=== PATIENT | male | born 1970 | race Caucasian/White ===

== ENCOUNTER 2018-09-05 19:04 | Emergency (ER) | payer SELFPAY ==
--- NOTE | 2018-09-05 21:52 | EDPHYS ---
Physician Documentation [facility] Name: Tomás Sotmoayor Age: 48 yrs Sex: Male : 1970 Arrival Date: 09/05/2018 Time: 19:09 Bed 9 Private MD: None, None ED Physician Celestine Lambert HPI: 09/05 21:45 This 48 yrs old Male presents to ER via Ambulatory with complaints of Low gs Back Pain. 21:45 The patient presents with pain that is chronic. The symptoms are located in the low gs back. The pain does not radiate. Onset: The symptoms/episode began/occurred 1 month(s) ago, and became worse and became persistent. Modifying factors: the patient symptoms are aggravated by any movement. Associated signs and symptoms: Pertinent positives: constipation, Pertinent negatives: incontinence, numbness, tingling, urinary retention. Severity of symptoms: At their worst the symptoms were moderate, in the emergency department the symptoms are unchanged. The patient has experienced similar episodes in the past, several times, chronically. 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 Historical: - Allergies: 19:24 No Known Allergies; ak1 - Home Meds: 19:24 None [Active]; ak1 - PMHx: 19:24 chroic back pain; Hypertension; ak1 - PSHx: 19:24 None; ak1 - Immunization history:: Adult Immunizations unknown. - Social history:: Smoking status: Patient/guardian denies using tobacco. - Ebola Screening: : No symptoms or risks identified at this time. ROS: 21:45 All other systems are negative. gs Exam: 21:45 Cardiovascular: Regular rate and rhythm with a normal S1 and S2. No gallops, murmurs, gs or rubs. Normal PMI, no JVD. No pulse deficits. Respiratory: Lungs have equal breath sounds bilaterally, clear to auscultation and percussion. No rales, rhonchi or wheezes noted. No increased work of breathing, no retractions or nasal flaring. Abdomen/GI: Soft, non-tender, with normal bowel sounds. No distension or tympany. No guarding or rebound. No evidence of tenderness throughout. 21:45 Constitutional: The patient appears alert, awake. 21:45 Back: pain, that is moderate, of the lumbar area. 21:45 Musculoskeletal/extremity: Circulation is intact in all extremities. 21:45 Skin: Exam negative for 21:45 Neuro: Exam negative for acute changes. Vital Signs: 19:24 BP 140 / 100; Pulse 108; Resp 16; Temp 98.3(O); Pulse Ox 98% on R/A; Weight 95.25 kg ak1 (R); Height 6 ft. 2 in. (187.96 cm) (R); Pain 8/10; 19:24 Body Mass Index 26.96 (95.25 kg, 187.96 cm) ak1 19:24 pt shoulde be on taking BP meds, no inusrance for 6 months and has not been taking ak1 medications. MDM: 21:25 Patient medically screened. 21:45 Differential diagnosis: arthritis, strain, Herniated disc. Differential diagnosis: gs chronic back pain. Data reviewed: vital signs, nurses notes. Counseling: I had a detailed discussion with the patient and/or guardian regarding: the historical points, exam findings, and any diagnostic results supporting the discharge/admit diagnosis, the need for outpatient follow up. Response to treatment: the patient's symptoms have mildly improved after treatment. Special discussion: pain contract was discussed has pain doctor will give steroid pack something for constipation. 09/05 21:12 Order name: Urine Dipstick--Ancillary (enter results) ag4 Administered Medications: 21:50 Drug: TORadol 30 mg Route: IM; Site: left deltoid; iw 22:00 Follow up: Response: No adverse reaction iw Disposition: 09/05/18 21:51 Discharged to Home. Impression: Chronic pain syndrome, Low back pain. - Condition is Stable. - Discharge Instructions: Back Pain, Adult, Chronic Pain. - Prescriptions for Prednisone 20 mg Oral Tablet - take 1 tablet by ORAL route once daily for 5 days; 5 tablet. Miralax 17 gram/dose Oral - take 1 packet by ORAL route once daily dilute powder in 8 ounces of water or juice; 1 bottle. - Medication Reconciliation Form, Thank You Letter, Antibiotic Education, Prescription Opioid Use form. - Follow up: Private Physician; When: 2 - 3 days; Reason: Re-evaluation by your physician. Signatures: Dispatcher [employer] Quyen Gauthier RN RN Tami Weir RN RN ak1 Celestine Lambert MD MD Corrections: (The following items were deleted from the chart) 22:00 21:51 09/05/2018 21:51 Discharged to Home. Impression: Chronic pain syndrome; Low back iw pain. Condition is Stable. Forms are Medication Reconciliation Form, Thank You Letter, Antibiotic Education, Prescription Opioid Use. Follow up: Private Physician; When: 2 - 3 days; Reason: Re-evaluation by your physician. gs
--- NOTE | 2018-09-05 21:52 | ER ---
Nurse's Notes [facility] Name: Tomás Sotomayor Age: 48 yrs Sex: Male : 1970 Arrival Date: 09/05/2018 Time: 19:09 Bed 9 Private MD: None, None Diagnosis: Chronic pain syndrome;Low back pain Presentation: 09/05 19:20 Presenting complaint: Patient states: lower back pain bilateral X1 night. pt with ak1 chronic back pain X20 years. pt denies injury. pt with intermittent constipation due to back pain. Transition of care: patient was not received from another setting of care. Onset of symptoms is unknown. Risk Assessment: Do you want to hurt yourself or someone else? Patient reports no desire to harm self or others. Initial Sepsis Screen: Does the patient meet any 2 criteria? No. Patient's initial sepsis screen is negative. Does the patient have a suspected source of infection? No. Patient's initial sepsis screen is negative. Care prior to arrival: None. 19:20 Method Of Arrival: Ambulatory ak1 19:20 Acuity: STACIE 4 ak1 Triage Assessment: 19:24 General: Appears uncomfortable, Behavior is calm, cooperative. ak1 Historical: - Allergies: 19:24 No Known Allergies; ak1 - Home Meds: 19:24 None [Active]; ak1 - PMHx: 19:24 chroic back pain; Hypertension; ak1 - PSHx: 19:24 None; ak1 - Immunization history:: Adult Immunizations unknown. - Social history:: Smoking status: Patient/guardian denies using tobacco. - Ebola Screening: : No symptoms or risks identified at this time. Screenin:25 Abuse screen: Denies threats or abuse. Denies injuries from another. Nutritional ak1 screening: No deficits noted. Tuberculosis screening: No symptoms or risk factors identified. Fall Risk None identified. Assessment: 20:50 General: Appears uncomfortable, Behavior is calm, cooperative. Pain: Complains of pain iw in lumbar area. Neuro: Level of Consciousness is awake, alert, obeys commands, Oriented to person, place, time, situation, Moves all extremities. Full function. Cardiovascular: Patient's skin is warm and dry. Respiratory: Respiratory effort is even, unlabored, Respiratory pattern is regular. Derm: Skin is intact, is healthy with good turgor. Musculoskeletal: Reports pain in lumbar area. Vital Signs: 19:24 BP 140 / 100; Pulse 108; Resp 16; Temp 98.3(O); Pulse Ox 98% on R/A; Weight 95.25 kg ak1 (R); Height 6 ft. 2 in. (187.96 cm) (R); Pain 8/10; 19:24 Body Mass Index 26.96 (95.25 kg, 187.96 cm) ak1 19:24 pt shoulde be on taking BP meds, no inusrance for 6 months and has not been taking ak1 medications. ED Course: 19:09 Patient arrived in ED. es 19:09 None, None is Private Physician. es 19:22 Triage completed. ak1 19:24 Arm band placed on Patient placed in waiting room, Patient notified of wait time. ak1 20:46 Quyen Catalan, RN is Primary Nurse. iw 20:50 Patient has correct armband on for positive identification. iw 21:02 Celestine Lambert MD is Attending Physician. gs 21:56 No provider procedures requiring assistance completed. Patient did not have IV access iw during this emergency room visit. Administered Medications: 21:50 Drug: TORadol 30 mg Route: IM; Site: left deltoid; iw 22:00 Follow up: Response: No adverse reaction iw Outcome: 21:51 Discharge ordered by . gs 21:55 Discharged to home ambulatory, with family. iw 21:55 Condition: good 21:55 Discharge instructions given to patient, family, Instructed on discharge instructions, follow up and referral plans. medication usage, Demonstrated understanding of instructions, follow-up care, medications, Prescriptions given X 2. 22:00 Patient left the ED. iw Signatures: Cammie Rivera Quyen Catalan, RN RN Tami Weir RN RN ak Celestine Lambert MD MD gs
[2018-09-05] MEDS ORDERED: KETOROLAC 30 MG/ML INJ ONE (21:55)
[2018-09-05 22:06] LABS: Urine Blood NEGATIVE (NEG); Urine Glucose NEGATIVE (NEG); Urine Protein NEGATIVE (NEG); Urine Specific Gravity 1.015 (1.005-1.030)
[2018-09-05 23:23] VITALS: BP 140/100; TEMP 98.3; O2SAT 98
== END 2018-09-05 22:00 | disposition home or self-care (01) ==
LOC: ER 19:04
DX: G89.4 Chronic pain syndrome (principal); M54.5 Low back pain; I10 Essential (primary) hypertension; T50.906A Underdosing of unspecified drugs, medicaments and biological substances, initial encounter; Z91.128 Patient's intentional underdosing of medication regimen for other reason
CPT/HCPCS: 81003

== ENCOUNTER 2019-10-27 02:48 | Emergency (ER) | payer SELFPAY ==
--- OUTSIDE RECORDS SUMMARY | 2019-10-27 02:51 | XMS REPORT | Summary of Care ---
:1970 Author Organization [facility] - Health Address [address] [place] [address] Care Team Providers Name Role Phone Pcp, Patient Does Not Have A Primary Care Provider Encounter Details Date Type Department Care Team Description 10/13/2019 Orders Only [facility] Doctor Unassigned, No [address] [facility] [place] [address] [address] [place] [address] Allergies No Known Allergiesdocumented as of this encounter (statuses as of 10/22/2019) Medications Medication Sig Dispensed Refills Start Date End Date Status apixaban (ELIQUIS) 5 mg Take 5 mg by 0 Active tablet mouth 2 (two) times daily. acetaminophen/diphenhyd Take 500 mg by 0 Active ramine (TYLENOL PM mouth as needed. ORAL) acetaminophen (TYLENOL Take by mouth as 0 Active EXTRA STRENGTH ORAL) needed (headache relief). metoprolol tartrate 100 Take 1 tablet by 60 tablet 3 06/27/2019 Active mg tabletIndications: mouth 2 (two) Chronic atrial times daily. fibrillation digoxin 125 mcg (0.125 Take 1 tablet by 30 tablet 0 09/20/2019 Active mg) tablet mouth daily. Please call office to discuss options for lab work [phone] documented as of this encounter (statuses as of 10/22/2019) Active Problems Not on filedocumented as of this encounter (statuses as of 10/22/2019) Social History Tobacco Use Types Packs/Day Years Used Date Never Smoker Smokeless Tobacco: Never Used Alcohol Use Drinks/Week oz/Week Comments Yes Sex Assigned at Date Recorded Not on file Job Start Date Occupation Industry Not on file Not on file Not on file Travel History Travel Start Travel End No recent travel history available. documented as of this encounter Last Filed Vital Signs Not on filedocumented in this encounter Plan of Treatment Health Maintenance Due Date Last Done Comments PNEUMOCOCCAL 0-64 YEARS COMBINED SERIES (1 of 1 - 1976 PPSV23) DTaP,Tdap,and Td Vaccines (1 - Tdap) 1981 INFLUENZA VACCINE (#1) 2019 documented as of this encounter Procedures Procedure Name Priority Date/Time Associated Diagnosis Comments EXTERNAL PROVIDER - ADC Routine 10/13/2019 12:01 AM CARDIOLOGY PRINCIPAL SCIENTIST documented in this encounter Results Not on filedocumented in this encounter
--- OUTSIDE RECORDS SUMMARY | 2019-10-27 02:51 | XMS REPORT | Summary of Care ---
:1970 Author Organization [facility] Address [address] [place] [id number] Care Team Providers Name Role Phone Pcp, Patient Does Not Have A Primary Care Provider Reason for Visit Reason Comments Refill Request Encounter Details Date Type Department Care Team Description 09/18/2019 Refill [facility] Cardiology- Jessica Rivera MD Refill Request [place] [address] [facility] 146 [facility], [address] [place] [address] [place] [address] Allergies No Known Allergiesdocumented as of this encounter (statuses as of 09/20/2019) Medications Medication Sig Dispensed Refills Start Date End Date Status apixaban (ELIQUIS) Take 5 mg by 0 Active 5 mg tablet mouth 2 (two) times daily. acetaminophen/diphe Take 500 mg 0 Active nhydramine (TYLENOL by mouth as PM ORAL) needed. acetaminophen Take by 0 Active (TYLENOL EXTRA mouth as STRENGTH ORAL) needed (headache relief). metoprolol tartrate Take 1 60 tablet 3 06/27/2019 Active 100 mg tablet by tabletIndications: mouth 2 Chronic atrial (two) times fibrillation daily. digoxin 125 mcg Take 1 30 tablet 0 09/20/2019 Active (0.125 mg) tablet tablet by mouth daily. Please call office to discuss options for lab work [phone] digoxin 125 mcg Take 1 30 tablet 3 06/06/2019 Discontinued (0.125 mg) tablet tablet by 0 (Reorder) mouth daily. documented as of this encounter (statuses as of 09/20/2019) Active Problems Not on filedocumented as of this encounter (statuses as of 09/20/2019) Social History Tobacco Use Types Packs/Day Years [...] (#1) 2019 documented as of this encounter Results Not on filedocumented in this encounter
--- OUTSIDE RECORDS SUMMARY | 2019-10-27 02:51 | XMS REPORT | Summary of Care ---
:1970 Author Organization [facility] Address [address] [place] [id number] Care Team Providers Name Role Phone Pcp, Patient Does Not Have A Primary Care Provider Reason for Visit Reason Comments New Patient Establish local Care/Hospital Follow up/AFIB Encounter Details Date Type Department Care Team Description 05/02/2019 Office Visit [facility] Jessica Rivera MD Chronic atrial fibrillation (Primary Dx); Cardiology- [address] Alcohol use; [facility] [address] Left atrial thrombus; [address], [address] [place] [phone] Allergies No Known Allergiesdocumented as of this encounter (statuses as of 05/02/2019) Medications Medication Sig Dispensed Refills Start Date End Date Status apixaban (ELIQUIS) Take 5 mg by 0 Active 5 mg tablet mouth 2 (two) times daily. acetaminophen/diphe Take 500 mg 0 Active nhydramine (TYLENOL by mouth as PM ORAL) needed. acetaminophen Take by 0 Active (TYLENOL EXTRA mouth as STRENGTH ORAL) needed (headache relief). metoprolol tartrate Take 3 180 tablet 5 05/02/2019 Active 25 mg tablets by tabletIndications: mouth 2 (two) Chronic atrial times daily. fibrillation diltiazem 180 mg 24 Take 1 tablet 90 tablet 3 05/02/2019 Active hr by mouth tabletIndications: daily. Chronic atrial fibrillation metoprolol tartrate Take 75 mg by 0 05/02/2019 Discontinued 25 mg tablet mouth 2 (two) times daily. diltiazem 180 mg 24 Take 180 mg 0 05/02/2019 Discontinued hr tablet by mouth daily. aspirin 81 mg Take 81 mg by 0 05/02/2019 Discontinued chewable tablet mouth daily. documented as of this encounter (statuses as of 05/02/2019) Active Problems Not on filedocumented as of this encounter (statuses as of 05/02/2019) Social History Tobacco Use Types Packs/Day Years Used Date Never Smoker Smokeless Tobacco: Never Used Alcohol Use Drinks/Week oz/Week Comments Yes Sex Assigned at Date Recorded Not on file Job Start Date Occupation Industry Not on file Not on file Not on file Travel History Travel Start Travel End No recent travel history available. documented as of this encounter Last Filed Vital Signs Vital Sign Reading Time Taken Comments Blood Pressure 144/96 05/02/2019 8:33 AM CDT Pulse 80 05/02/2019 8:33 AM CDT Temperature - - Respiratory Rate 20 05/02/2019 8:19 AM CDT Oxygen Saturation 98% 05/02/2019 8:19 AM CDT Inhaled Oxygen Concentration - - Weight 92.3 kg (203 lb 6.4 oz) 05/02/2019 8:19 AM CDT Height 188 cm (6' 2") 05/02/2019 8:19 AM CDT Body Mass Index 26.12 05/02/2019 8:19 AM CDT documented in this encounter Progress Notes Jessica Rivera MD - 05/02/2019 8:00 AM CDT CARDIOLOGY CLINIC NOTE 05/02/2019 Reason for Referral/Presenting Complaint: Afib PCP: PATIENT DOES NOT HAVE A PCP History of Present Illness: Kyrie Sotomayor is a 49 years old male with history of HTN and daily alcohol use. In 02/2019 he was admitted to a hospital in [place] for chest pain, dizziness and SOB. Found to have Afib with RVR. BRI found thrombus. No cardioversion done. Started on Eliquis, metoprolol and cardizem. Now feeling better. No palpitations. No bleeding. He has had intermittent Palpitations for years. Home BP is normal. Review of Systems: General: (-) fever, (-) chills, (-) weight change, (-) dizziness, (+) fatigue Skin: (-) rash HEENT: (-) headache, (-) change in vision Neck: (-) difficulty swallowing Heme: negative Resp: (-) cough, (-) dyspnea on exertion Cardio: (-) chest pain, (-) palpitations, (-) syncope GI: (-) vomiting, (-) diarrhea : negative Endo: (-) diabetes, (-) thyroid disease Neuro: (-) numbness, (-) tingling, (-) weakness Back: (-) pain ADONIS: (-) muscle pain, (-) claudication Psych: (-) anxiety, (-) depression Past Medical History: No past medical history on file. Current Medications: Current Outpatient Medications Medication Sig Dispense Refill acetaminophen (TYLENOL EXTRA STRENGTH ORAL) Take by mouth as needed ( headache relief). acetaminophen/diphenhydramine (TYLENOL PM ORAL) Take 500 mg by mouth as needed. apixaban (ELIQUIS) 5 mg tablet Take 5 mg by mouth 2 (two) times daily. diltiazem 180 mg 24 hr tablet Take 1 tablet by mouth daily. 90 tablet 3 metoprolol tartrate 25 mg tablet Take 3 tablets by mouth 2 (two) times daily. 180 tablet 5 No current facility-administered medications for this visit. Social History: Social History Socioeconomic History Marital status: Spouse name: Not on file Number of children: Not on file Years of education: Not on file Highest education level: Not on file Occupational History Not on file Social Needs Financial resource strain: Not on file Food insecurity: Worry: Not on file Inability: Not on file Transportation needs: Medical: Not on file Non-medical: Not on file Tobacco Use Smoking status: Never Smoker Smokeless tobacco: Never Used Substance and Sexual Activity Alcohol use: Yes Drug use: Not on file Sexual activity: Not on file Lifestyle Physical activity: Days per week: Not on file Minutes per session: Not on file Stress: Not on file Relationships Social connections: Talks on phone: Not on file Gets together: Not on file Attends islam service: Not on file Active member of club or organization: Not on file Attends meetings of clubs or organizations: Not on file Relationship status: Not on file Intimate partner violence: Fear of current or ex partner: Not on file Emotionally abused: Not on file Physically abused: Not on file Forced sexual activity: Not on file Other Topics Concern Not on file Social History Narrative Not on file Family History Family History Problem Relation Age of Onset Heart Mother Afib and HF Coronary Heart Disease Father 60s Physical Examination: BP (!) 144/96 | Pulse 80 | Resp 20 | Ht 6' 2" (1.88 m) | Wt 203 lb 6.4 oz ( 92.3 kg) | SpO2 98%| BMI 26.12 kg/m Constitutional: alert and oriented x 3 (person, place and date/time); no apparent distress ENT: normocephalic atraumatic, supple, no lymphadenopathy, no bruits, no JVD Lungs: clear to auscultation bilaterally Cardiovascular: S1, S2 normal, irregular; no murmurs, rubs or gallops GI: soft; non-tender; non-distended; normoactive bowel sounds : not examined Musculoskeletal: Extremities: no clubbing, cyanosis, or edema Skin: no rashes Neuro: no focal deficits Cardiovascular testing: Assessment/Plan: ICD-10-CM ICD-9-CM 1. Chronic atrial fibrillation I48.2 427.31 2. Alcohol use Z78.9 V49.89 3. 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 Essential hypertension I10 401.9 Afib probably has been chronic. With intracardiac thrombus. Will continue Eliquis. No bleeding. Onceinsurance obtained will repeat BRI. Rate is controlled with metoprolol and cardizem. Advised to quit alcohol. HTN is well controlled. Patient was counseled for lifestyle modifications including: diet and exercise. RTC 4 months Jessica Rivera MD, [facility] Operations Trainer, Division of Cardiology [facility] ; Pager documented in this encounter Plan of Treatment Date Type Specialty Care Team Description 09/02/2019 Office Visit Cardiology Jessica Rivera MD [address] [place] [address] [place] [id number] Health Maintenance Due Date Last Done Comments DTaP,Tdap,and Td Vaccines (1 - 1989 Tdap) INFLUENZA VACCINE (#1) 2019 PNEUMOCOCCAL 0-64 YEARS COMBINED Aged Out No longer eligible based on SERIES patient's age to complete this topic documented as of this encounter Results Not on filedocumented in this encounter Visit Diagnoses Diagnosis Chronic atrial fibrillation - Primary Atrial fibrillation Alcohol use Other problems related to lifestyle Left atrial thrombus Other ill-defined heart disease Essential hypertension Unspecified essential hypertension documented in this encounter
--- OUTSIDE RECORDS SUMMARY | 2019-10-27 02:51 | XMS REPORT | Summary of Care ---
:1970 Author Organization [facility] Address [address] [place] [address] Care Team Providers Name Role Phone Pcp, Patient Does Not Have A Primary Care Provider Reason for Visit Reason Comments Notification Encounter Details Date Type Department Care Team Description 09/01/2019 Telephone [facility] Cardiology- Jessica Rivera MD Notification [place] [address] [facility] 146 [facility], [address] [place] [address] [place] [address] Allergies No Known Allergiesdocumented as of this encounter (statuses as of 09/02/2019) Medications Medication Sig Dispensed Refills Start Date End Date Status apixaban (ELIQUIS) 5 mg Take 5 mg by 0 Active tablet mouth 2 (two) times daily. acetaminophen/diphenhydr Take 500 mg by 0 Active amine (TYLENOL PM ORAL) mouth as needed. acetaminophen (TYLENOL Take by mouth 0 Active EXTRA STRENGTH ORAL) as needed (headache relief). digoxin 125 mcg (0.125 Take 1 tablet by 30 tablet 3 06/06/2019 Active mg) tablet mouth daily. metoprolol tartrate 100 Take 1 tablet by 60 tablet 3 06/27/2019 Active mg tabletIndications: mouth 2 (two) Chronic atrial times daily. fibrillation documented as of this encounter (statuses as of 09/02/2019) Active Problems Not on filedocumented as of this encounter (statuses as of 09/02/2019) Social History Tobacco Use Types Packs/Day Years [...]
--- OUTSIDE RECORDS SUMMARY | 2019-10-27 02:51 | XMS REPORT | Summary of Care ---
:1970 [address] [facility] - Health Address [address] [place] [address] Care Team Providers Name Role Phone Pcp, Patient Does Not Have A Primary Care Provider Encounter Details Date Type Department Care Team Description [address] [facility] Doctor Unassigned, No [address] [facility] [place] [address] [address] [place] [address] Allergies No Known Allergiesdocumented as of this encounter (statuses as of 05/09/2019) Medications No known medicationsdocumented as of this encounter (statuses as of 05/09/2019) Active Problems Not on filedocumented as of this encounter (statuses as of 05/09/2019) Social History Tobacco Use Types Packs/Day Years Used Date Never Assessed Sex Assigned at Date Recorded Not on file Job Start Date Occupation Industry Not on file Not on file Not on file Travel History Travel Start Travel End No recent travel history available. documented as of this encounter Last Filed Vital Signs Not on filedocumented in this encounter Plan of Treatment Date Type Specialty Care Team Description 09/02/2019 Office Visit Cardiology Jessica Rivera MD [address] [facility] [address] [place], [place] [id number] Health Maintenance Due Date Last Done Comments PNEUMOCOCCAL 0-64 YEARS COMBINED SERIES (1 of 1 - 1976 PPSV23) DTaP,Tdap,and Td Vaccines (1 - Tdap) 1989 INFLUENZA VACCINE (#1) 2019 documented as of this encounter Procedures Procedure Name Priority Date/Time Associated Diagnosis Comments HOSPITAL ADMISSION Routine 2019 12:01 AM CDT documented in this encounter Results Not on filedocumented in this encounter
--- OUTSIDE RECORDS SUMMARY | 2019-10-27 02:51 | XMS REPORT | Summary of Care ---
:1970 Author Organization [facility] Address [address] [place] [id number] Care Team Providers Name Role Phone Pcp, Patient Does Not Have A Primary Care Provider Reason for Visit Reason Comments Rx Concern/Question Encounter Details Date Type Department Care Team Description 05/05/2019 Telephone [facility] Cardiology- Jessica Rivera MD Rx Concern/Question [address] [address] [address] [facility] [address] [place] [phone] Allergies No Known Allergiesdocumented as of this encounter (statuses as of 05/06/2019) Medications Medication Sig Dispensed Refills Start Date End Date Status apixaban (ELIQUIS) 5 mg Take 5 mg by 0 Active tablet mouth 2 (two) times daily. acetaminophen/diphenhyd Take 500 mg by 0 Active ramine (TYLENOL PM mouth as needed. ORAL) acetaminophen (TYLENOL Take by mouth 0 Active EXTRA STRENGTH ORAL) as needed (headache relief). metoprolol tartrate 25 Take 3 tablets 180 tablet 5 05/02/2019 Active mg tabletIndications: by mouth 2 (two) Chronic atrial times daily. fibrillation diltiazem 180 mg 24 hr Take 1 tablet by 90 tablet 3 05/02/2019 Active tabletIndications: mouth daily. Chronic atrial fibrillation documented as of this encounter (statuses as of 05/06/2019) Active Problems Not on filedocumented as of this encounter (statuses as of 05/06/2019) Social History Tobacco Use Types Packs/Day Years [...] 09/02/2019 Office Visit Cardiology Jessica Rivera MD [address] [place] [address] [place] [address] [phone] Health Maintenance Due Date Last Done Comments PNEUMOCOCCAL 0-64 YEARS COMBINED SERIES (1 of 1 - 1976 PPSV23) DTaP,Tdap,and Td Vaccines (1 - Tdap) 1989 INFLUENZA VACCINE (#1) 2019 documented as of this encounter Results Not on filedocumented in this encounter
--- OUTSIDE RECORDS SUMMARY | 2019-10-27 02:51 | XMS REPORT | Summary of Care ---
:1970 Author Organization [facility] Address [address] [place] [address] Care Team Providers Name Role Phone Pcp, Patient Does Not Have A Primary Care Provider Reason for Visit Reason Comments Rx Concern/Question Encounter Details Date Type Department Care Team Description 10/13/2019 Telephone [facility] Cardiology- Jessica Rivera MD Rx Concern/Question [address] [facility] [place] [address] [place], [place] [id number] Allergies No Known Allergiesdocumented as of this encounter (statuses as of 10/17/2019) Medications Medication Sig Dispensed Refills Start Date [...] office to discuss options for lab work [phone] documented as of this encounter (statuses as of 10/17/2019) Active Problems Not on filedocumented as of this encounter (statuses as of 10/17/2019) Social History Tobacco Use Types Packs/Day Years [...] PNEUMOCOCCAL 0-64 YEARS COMBINED SERIES (1 of - 1976 PPSV23) DTaP,Tdap,and Td Vaccines (1 - Tdap) 1981 INFLUENZA VACCINE (#1) 2019 documented as of this encounter Results Not on filedocumented in this encounter
--- OUTSIDE RECORDS SUMMARY | 2019-10-27 02:51 | XMS REPORT ---
:1970 [facility] Address [address] [place] [address] Care Team Providers Name Role Phone Unavailable Unavailable Unavailable Problems This patient has no known problems. Allergies, Adverse Reactions, Alerts This patient has no known allergies or adverse reactions. Medications This patient has no known medications.
--- OUTSIDE RECORDS SUMMARY | 2019-10-27 02:51 | XMS REPORT | Summary of Care ---
:1970 Author Organization [facility] [[email or web address] - Health Address [address] [place] [address] Care Team Providers Name Role Phone Pcp, Patient Does Not Have A Primary Care Provider Encounter Details Date Type Department Care Team Description 05/02/2019 Orders Only [facility] [[email or web address]] Doctor Unassigned, No [address] [facility] [place] [address] [address] [place] [address] Allergies No Known Allergiesdocumented as of this encounter (statuses as of 05/07/2019) Medications Medication Sig Dispensed Refills Start Date [...] as of this encounter (statuses as of 05/07/2019) Active Problems Not on filedocumented as of this encounter (statuses as of 05/07/2019) Social History Tobacco Use Types Packs/Day Years [...] 09/02/2019 Office Visit Cardiology Jessica Rivera MD [address] [place] [address] [place] [phone] Health Maintenance Due Date Last Done Comments PNEUMOCOCCAL 0-64 YEARS COMBINED SERIES (1 of 1 - 1976 PPSV23) DTaP,Tdap,and Td Vaccines (1 - Tdap) 1989 INFLUENZA VACCINE (#1) 2019 documented as of this encounter Procedures Procedure Name Priority Date/Time Associated Diagnosis Comments AUTHORIZATION TO RELEASE Routine 05/02/2019 12:01 AM PHI TO [facility] [[email or web address]] CDT documented in this encounter Results Not on filedocumented in this encounter
--- OUTSIDE RECORDS SUMMARY | 2019-10-27 02:51 | XMS REPORT | Summary of Care ---
:1970 Author Organization [facility] Address [address] [place] [address] Care Team Providers Name Role Phone Pcp, Patient Does Not Have A Primary Care Provider Reason for Visit Reason Comments New Patient Establish local Care/Hospital Follow up/AFIB Encounter Details Date Type Department Care Team Description 05/02/2019 Office Visit [facility] Jessica Rivera MD Chronic atrial fibrillation (Primary Dx); Cardiology- [address] Alcohol use; [facility] Left atrial thrombus; Drive, [address] [place] [phone] Allergies No Known Allergiesdocumented as of this [...] he was admitted to a hospital in [place] for chest pain, dizziness and SOB. Found [...] file Gets together: Not on file Attends advent service: Not on file Active member of [...] exercise. RTC 4 months [facility] Rivera [facility] Genetic Physician, Division of Cardiology [facility] ; Pager documented in this encounter Plan of Treatment Date Type Specialty Care Team Description 09/02/2019 Office Visit Cardiology Jessica Rivera MD [address] [place] [address] [place] [phone] Health Maintenance Due Date Last Done Comments [...]
[2019-10-27] MEDS ORDERED: HYDROCODONE/CHLORPHEN 5 ML/OSYR ONE (03:07)
[2019-10-27] MEDS ORDERED: AZITHROMYCIN 250 MG TAB ONE (03:43)
[2019-10-27] MEDS ORDERED: KETOROLAC 30 MG/ML INJ ONE (03:44)
--- NOTE | 2019-10-27 04:30 | ER ---
Nurse's Notes [facility] Name: Tomás Sotomayor Age: 49 yrs Sex: Male : 1970 Arrival Date: 10/27/2019 Time: 02:51 Bed 14 Private MD: Diagnosis: Acute bronchitis Presentation: 10/26 03:05 Chief complaint: Patient states: C/O sore throat with difficulty swallowing and cough wh that started Sunday. Pt denies fever. Coronavirus screen: The patient has NOT traveled to a country currently being monitored by the [facility] within the last 14 days. Ebola Screen: Patient negative for fever greater than or equal to 101.5 degrees Fahrenheit, and additional compatible Ebola Virus Disease symptoms Patient denies exposure to infectious person. Initial Sepsis Screen: Does the patient meet any 2 criteria? HR > 90 bpm. Does the patient have a suspected source of infection? Yes: Productive cough/pneumonia. Risk Assessment: Do you want to hurt yourself or someone else? Patient reports no desire to harm self or others. 03:05 Method Of Arrival: Ambulatory 03:05 Acuity: STACIE 4 03:22 Onset of symptoms was October 27, 2019. Historical: - Allergies: 03:21 No Known Allergies; - Home Meds: 03:21 Metoprolol Tartrate Oral [Active]; Eliquis oral oral [Active]; - PMHx: 03:21 chroic back pain; Hypertension; Afib; - PSHx: 03:21 None; - Immunization history:: Adult Immunizations not up to date. - Social history:: Smoking status: Patient/guardian denies using Patient/guardian denies using alcohol, street drugs, The patient lives with family. - Family history:: not pertinent. Screenin:22 Abuse screen: Denies threats or abuse. Denies injuries from another. Nutritional screening: No deficits noted. Tuberculosis screening: No symptoms or risk factors identified. Fall Risk None identified. Assessment: 03:21 General: Appears in no apparent distress. Behavior is calm, cooperative, appropriate wh for age. Pain: Complains of pain in sore throat Pain does not radiate. Neuro: Level of Consciousness is awake, alert, obeys commands, Oriented to person, place, time, situation, Appropriate for age. Cardiovascular: Heart tones S1 S2. Respiratory: Reports cough that is Airway is patent Respiratory effort is even, unlabored, Breath sounds are clear bilaterally. GI: Abdomen is flat, non-distended. : No signs and/or symptoms were reported regarding the genitourinary system. EENT: Throat is reddened. Derm: Skin is intact, is healthy with good turgor, Skin is pink, warm \T\ dry. normal. Musculoskeletal: Circulation, motion, and sensation intact. 04:20 Reassessment: Patient appears in no apparent distress at this time. No changes from previously documented assessment. Patient and/or family updated on plan of care and expected duration. Pain level reassessed. Patient is alert, oriented x 3, equal unlabored respirations, skin warm/dry/pink. Vital Signs: 03:05 BP 171 / 90; Pulse 93; Resp 18; Temp 97.9; Pulse Ox 99% ; Weight 95.25 kg; Height 6 ft. wh 1 in. (185.42 cm); 04:20 BP 167 / 106; Pulse 76; Resp 18; Pulse Ox 97% on R/A; wh 03:05 Body Mass Index 27.71 (95.25 kg, 185.42 cm) ED Course: 02:51 Patient arrived in ED. jg7 02:52 Kiko Meeks is Primary Nurse. 02:52 Dane Aguilar MD is Attending Physician. ma2 03:19 Triage completed. 03:22 Arm band placed on right wrist. 03:23 Patient has correct armband on for positive identification. Bed in low position. Call light in reach. Side rails up X 1. Pulse ox on. NIBP on. 04:39 No provider procedures requiring assistance completed. Patient did not have IV access during this emergency room visit. 04:48 Chest Single View XRAY In Process Unspecified. EDMS Administered Medications: 03:43 Drug: TORadol 60 mg Route: IM; Site: right gluteus; 04:40 Follow up: Response: No adverse reaction; Pain is decreased; RASS: Alert and Calm (0) 03:43 Drug: AZITHromycin 500 mg Route: PO; 04:40 Follow up: Response: No adverse reaction 03:43 Drug: Tussionex Pennkinetic ER 5 ml Route: PO; 04:40 Follow up: Response: No adverse reaction Outcome: 04:29 Discharge ordered by . kellee 04:39 Discharged to home ambulatory, with family. 04:39 Condition: stable 04:39 Discharge instructions given to patient, family, Instructed on discharge instructions, follow up and referral plans. medication usage, POC Demonstrated understanding of instructions, follow-up care, medications, POC Prescriptions given X 4. 04:39 Patient left the ED. Signatures: Dispatcher [employer] EDMS Kiko Meeks Dane Aguilar MD MD ma2 Gutierrez, Jessica jg7
--- NOTE | 2019-10-27 04:30 | EDPHYS ---
Physician Documentation [facility] Name: Tomás Sotomayor Age: 49 yrs Sex: Male : 1970 Arrival Date: 10/27/2019 Time: 02:51 Bed 14 Private MD: ED Physician Dane Aguilar HPI: 10/26 04:20 This 49 yrs old Male presents to ER via Ambulatory with complaints of ma2 Difficulty Swallowing, Sore Throat. 04:20 The patient presents with sore throat. Onset: The symptoms/episode began/occurred ma2 gradually, 1 day(s) ago. Severity of symptoms: At their worst the symptoms were mild, in the emergency department the symptoms are unchanged. Associated signs and symptoms: Pertinent negatives cough, diarrhea, fever, headache. The patient has not experienced similar symptoms in the past. Historical: - Allergies: 03:21 No Known Allergies; wh - Home Meds: 03:21 Metoprolol Tartrate Oral [Active]; Eliquis oral oral [Active]; - PMHx: 03:21 chroic back pain; Hypertension; Afib; - PSHx: 03:21 None; - Immunization history:: Adult Immunizations not up to date. - Social history:: Smoking status: Patient/guardian denies using Patient/guardian denies using alcohol, street drugs, The patient lives with family. - Family history:: not pertinent. ROS: 04:20 Constitutional: Negative for fever, chills, and weight loss. ma2 04:20 All other systems are negative. Exam: 04:20 Constitutional: This is a well developed, well nourished patient who is awake, alert, ma2 and in no acute distress. Neck: Trachea midline, no thyromegaly or masses palpated, and no cervical lymphadenopathy. Supple, full range of motion without nuchal rigidity, or vertebral point tenderness. No Meningismus. Chest/axilla: Normal chest wall appearance and motion. Nontender with no deformity. No lesions are appreciated. Cardiovascular: Regular rate and rhythm with a normal S1 and S2. No gallops, murmurs, or rubs. Normal PMI, no JVD. No pulse deficits. Respiratory: Lungs have equal breath sounds bilaterally, clear to auscultation and percussion. No rales, rhonchi or wheezes noted. No increased work of breathing, no retractions or nasal flaring. Abdomen/GI: Soft, non-tender, with normal bowel sounds. No distension or tympany. No guarding or rebound. No evidence of tenderness throughout. MS/ Extremity: Pulses equal, no cyanosis. Neurovascular intact. Full, normal range of motion. Neuro: Awake and alert, GCS 15, oriented to person, place, time, and situation. Cranial nerves II-XII grossly intact. Motor strength 5/5 in all extremities. Sensory grossly intact. Cerebellar exam normal. Normal gait. Vital Signs: 03:05 BP 171 / 90; Pulse 93; Resp 18; Temp 97.9; Pulse Ox 99% ; Weight 95.25 kg; Height 6 ft. wh 1 in. (185.42 cm); 04:20 BP 167 / 106; Pulse 76; Resp 18; Pulse Ox 97% on R/A; wh 03:05 Body Mass Index 27.71 (95.25 kg, 185.42 cm) MDM: 02:52 Patient medically screened. me2 04:20 Differential diagnosis: Allergic rhinitis, upper respiratory infection, viral syndrome. ma2 Data reviewed: vital signs, nurses notes. Counseling: I had a detailed discussion with the patient and/or guardian regarding: the historical points, exam findings, and any diagnostic results supporting the discharge/admit diagnosis, the presence of at least one elevated blood pressure reading (>120/80) during this emergency department visit, the need for outpatient follow up. Response to treatment: the patient's symptoms have markedly improved after treatment. 10/26 02:53 Order name: Strep me2 10/26 02:53 Order name: Flu ma2 10/26 03:16 Order name: Chest Single View XRAY me2 10/26 04:26 Order name: Throat Culture EDMS 10/26 03:23 Order name: EKG - Nurse/Tech; Complete Time: 03:43 wh Administered Medications: 03:43 Drug: TORadol 60 mg Route: IM; Site: right gluteus; 04:40 Follow up: Response: No adverse reaction; Pain is decreased; RASS: Alert and Calm (0) 03:43 Drug: AZITHromycin 500 mg Route: PO; 04:40 Follow up: Response: No adverse reaction 03:43 Drug: Tussionex Pennkinetic ER 5 ml Route: PO; 04:40 Follow up: Response: No adverse reaction Disposition: 10/27/19 04:29 Discharged to Home. Impression: Acute bronchitis. - Condition is Stable. - Discharge Instructions: Acute Bronchitis, Adult. - Prescriptions for Tessalon Perles 100 mg Oral Capsule - take 1 capsule by ORAL route every 8 hours As needed; 15 capsule. Zithromax Z- Lee 250 mg Oral Tablet - take 1 tablet by ORAL route as directed for 5 days Day 1 - take two (2) tablets one time. Day 2, 3, 4 , 5 take one (1) tablet once daily.; 6 tablet. Medrol (Lee) 4 mg Oral Tablets, Dose Pack - take 1 tablet by ORAL route as directed - follow package instructions; 1 packet. Albuterol Sulfate 90 mcg/actuation - inhale 1-2 puff by INHALATION route every 4-6 hours; 1 Inhaler. - Medication Reconciliation Form, Thank You Letter, Antibiotic Education, Prescription Opioid Use form. - Follow up: Private Physician; When: Tomorrow; Reason: Continuance of care. Signatures: Dispatcher [employer] Kiko Valerio Dane Aguilar MD MD ma2 Corrections: (The following items were deleted from the chart) 04:39 04:29 10/27/2019 04:29 Discharged to Home. Impression: Acute bronchitis. Condition is Stable. Forms are Medication Reconciliation Form, Thank You Letter, Antibiotic Education, Prescription Opioid Use. Follow up: Private Physician; When: Tomorrow; Reason: Continuance of care. ma2
[2019-10-27 04:45] VITALS: TEMP 97.9
[2019-10-27 04:47] VITALS: BP 167/106; O2SAT 97
--- NOTE | 2019-10-27 08:29 | RAD REPORT ---
EXAM DESCRIPTION: RAD - Chest Single View - 10/27/2019 4:48 am CLINICAL HISTORY: COUGH Chest pain. COMPARISON: No comparisons FINDINGS: Portable technique limits examination quality. The lungs are grossly clear. The heart is normal in size. No displaced fractures. IMPRESSION: No acute intrathoracic process suspected.
--- NOTE | 2019-10-28 08:55 | EKG ---
Test Date: 2019-10-27 Test Time: 02:22:25 Asic Design Engineer: NATHAN MEASUREMENT RESULTS: Intervals: Rate: 81 MO: 152 QRSD: 92 QT: 404 QTc: 469 [place]: P: 56 MO: 152 QRS: -30 T: 28 INTERPRETIVE STATEMENTS: Normal sinus rhythm Possible Left atrial enlargement Left axis deviation Left ventricular hypertrophy Abnormal ECG Compared to ECG 11/10/2008 11:59:35 Left-axis deviation now present Left ventricular hypertrophy now present Sinus tachycardia no longer present Electronically Signed On 10-28-19 08:53:11 CDT by Sha Noble
== END 2019-10-27 04:39 | disposition home or self-care (01) ==
LOC: ER 02:48
DX: J20.9 Acute bronchitis, unspecified (principal); I10 Essential (primary) hypertension; I48.91 Unspecified atrial fibrillation
CPT/HCPCS: 71045; 87070; 87081; 87804; 93005; 96372; 99284

== ENCOUNTER 2021-05-14 05:13 | Inpatient (IN) | payer SELFPAY ==
[2021-05-14 06:37] LABS: Absolute Lymphocytes (CBC) 1.1 K/uL (0.7-4.9); Basophils % 0.9 % (0-1.3); Hematocrit 28.6 % (39.6-49.0); Lymphocytes % 10.3 % (15.3-44.8); MPV 8.4 fL (7.6-11.3); RBC Red Blood Cell Count 4.08 M/uL (4.33-5.43)
[2021-05-14 06:39] LABS: Protime INR 1.36
[2021-05-14 07:10] LABS: ALT/SGPT 85 U/L (12-78); AST/SGOT 118 U/L (15-37); Albumin 4.5 g/dL (3.4-5.0); Alkaline Phosphatase 99 U/L (45-117); BUN Blood Urea Nitrogen 17 mg/dL (7-18); Bicarbonate 23 mmol/L (21-32); Bilirubin Direct 0.4 mg/dL (0-0.2); Bilirubin Total 1.3 mg/dL (0.2-1.0); Glucose Level 105 mg/dL (74-106); Potassium 3.4 mmol/L (3.5-5.1); Protein, Total 8.3 g/dL (6.4-8.2); Sodium Level 138 mmol/L (136-145)
[2021-05-14] MEDS ORDERED: LORazepam 2 MG/ML VIAL ONE ×5 (07:31→20:05)
[2021-05-14] MEDS ORDERED: NA CHLORIDE 0.9% 1,000 ML ONE ×2 (07:45→09:32)
[2021-05-14] MEDS ORDERED: MULTIVITAMINS 10 ML VIAL (INJ) IV ONE (07:45)
[2021-05-14] MEDS ORDERED: THIAMINE 200 MG/2 ML INJ ONE (07:45)
[2021-05-14] MEDS ORDERED: FOLIC ACID 5 MG/ML VIAL ONE (07:47)
[2021-05-14] MEDS ORDERED: DIAZEPAM 10 MG/2 ML INJ SYRINGE ONE ×2 (09:51→11:32)
[2021-05-14] MEDS ORDERED: HALOPERIDOL LACT 5 MG/ML INJ ONE (10:15)
[2021-05-14] MEDS ORDERED: MIDAZOLAM HCL 2 MG/2 ML INJ ONE (10:15)
--- NOTE | 2021-05-14 10:43 | ER ---
Nurse's Notes [facility] Name: Tomás Sotomayor Age: 51 yrs Sex: Male : 1970 Arrival Date: 05/14/2021 Time: 05:16 Bed 7 Private MD: Diagnosis: Alcohol dependence with withdrawal delirium Presentation: 05/14 05:23 Coronavirus screen: Vaccine status: Patient reports receiving the 2nd dose of the covid lh3 vaccine. Date November 2020. Ebola Screen: No symptoms or risks identified at this time. Initial Sepsis Screen: Does the patient meet any 2 criteria? No. Patient's initial sepsis screen is negative. Does the patient have a suspected source of infection? No. Patient's initial sepsis screen is negative. Risk Assessment: Do you want to hurt yourself or someone else? Patient reports no desire to harm self or others. Onset of symptoms was May 14, 2021. 05:23 Method Of Arrival: Ambulatory [facility] 05:23 Acuity: STACIE 2 [facility] Triage Assessment: 05:28 General: Appears shaky. Behavior is calm, cooperative, appropriate for age. Pain: lh3 Complains of pain in lumbar area, left low back and right low back. Historical: - Allergies: 05:28 No Known Allergies; lh3 - Home Meds: 05:27 Eliquis Oral [Active]; Metoprolol Tartrate Oral [Active]; 3 - PMHx: 05:27 AFIB; chroic back pain; Hypertension; lh3 - Immunization history:: Adult Immunizations up to date. - Social history:: Smoking status: Patient denies any tobacco usage or history of. Screenin:53 Abuse screen: Denies. Nutritional screening: No deficits noted. wr 06:54 Tuberculosis screening: No symptoms or risk factors identified. wr 06:54 Fall Risk None identified. wr Assessment: 06:54 Reassessment: Patient have shake's due to alcohol abuse,He C/O back pain 8/ today.. wr 07:15 Reassessment: Receive pt from previous shift, ativan given, banana bag to be hung. oh 08:13 Neuro:. oh 08:25 Reassessment: pt exhibiting withdrawal symptoms, tremors. oh Psych: 08:11 Patient uses Patient has a history of DTs. oh 08:12 [place] Suicide Severity Screening: In the past month, have you wished you were oh or wished you could go to sleep and not wake up? Patient responds "No.". [place] Suicide Severity Screening: "In the past month, have you actually had any thoughts of killing yourself?" Patient responds "no." "In your lifetime, have you ever done anything, started to do anything, or prepared to do anything to end your life?" Patient responds "no.". Subjective: Hallucinations are visual. Objective: Patient is cooperative, Speech is rambling. Interventions: Patient reassessed during use of restraints. Patient is physically safe. Safety Checks: Vital Signs: 05:23 BP 122 / 105; Pulse 87; Resp 25; Temp 97.3; Pulse Ox 100% on R/A; Weight 102.06 kg; lh3 Height 6 ft. 2 in. (187.96 cm); 06:47 BP 128 / 100; Pulse 86; Resp 20; Temp 97.3; Pulse Ox 100% ; Weight 102.6 kg; Height 6 wr ft. 2 in. (187.96 cm); Pain 8/10; 08:02 BP 132 / 76; Pulse 99; Resp 22; Pulse Ox 96% ; oh 11:41 BP 102 / 51; Pulse 97; Resp 20; Pulse Ox 99% on 3 lpm NC; oh 06:47 Body Mass Index 29.04 (102.60 kg, 187.96 cm) ED Course: 05:16 Patient arrived in ED. 05:27 Triage completed. lh3 05:28 Arm band placed on right wrist. lh3 05:33 Ashley Lui, RN is Primary Nurse. cc4 05:53 Lanre Díaz MD is Attending Physician. mh7 06:35 CBC with Automated Diff Sent. wr 06:35 Alcohol Serum/Plasma Sent. wr 06:35 Basic Metabolic Panel Sent. wr 06:35 Acetaminophen Level Sent. wr 06:35 Acetaminophen Sent. wr 06:35 Basic Metabolic Panel Sent. wr 06:35 CBC with Diff Sent. wr 06:38 Maxwell Rossi NP is PHCP. pm1 06:38 Salicylate Sent. wr 06:38 Ptt, Activated Sent. wr 06:38 PT-INR Sent. wr 06:38 Hepatic Function Sent. wr 07:13 Primary Nurse role handed off by Ashley Lui, ANA ROSA oh 07:13 Arie Bautista RN is Primary Nurse. oh 10:43 Alvaro Evans MD is Hospitalizing Provider. pm1 12:13 Patient is placed in psych hold. oh Administered Medications: 07:14 Drug: Ativan (LORazepam) 1 mg Route: IVP; Site: left forearm; oh 08:43 Follow up: Response: No adverse reaction oh 07:30 Drug: Banana Bag - (NS 0.9% 1000 ml, foLIC Acid 1 mg, Thiamine 100 mg, Multivitamin 1 oh amp) Route: IV; Rate: calculated rate; Site: left hand; 08:10 Drug: Ativan (LORazepam) 1 mg Route: IVP; Site: left hand; oh 08:43 Follow up: Response: No adverse reaction oh 08:56 CANCELLED (Duplicate Order): Ativan (LORazepam) 2 mg IVP once oh 08:57 Drug: Ativan (LORazepam) 2 mg Route: IVP; Site: left hand; oh 09:13 Drug: NS 0.9% 1000 ml Route: IV; Rate: 1000 ml; Site: left hand; oh 09:30 Drug: Valium (diazepam) 5 mg Route: IVP; Site: left hand; oh 10:05 Drug: HALdol (as decanoate) 5 mg Route: IM; Site: right vastus lateralis; ss 10:05 Drug: Versed (midazolam) 5 mg Route: IM; Site: left vastus lateralis; ss 10:31 Drug: Ativan (LORazepam) 2 mg Route: IVP; Site: left hand; oh 11:11 Drug: Geodon (ziprasidone) 10 mg Route: IM; Site: right vastus lateralis; kh1 11:12 Not Given (Other Intervention Used): HALdol (haloperidol) 5 mg IVP once ss 11:12 Not Given (Other Intervention Used): Versed (midazolam) 5 mg IVP once ss 15:31 Not Given (Other Intervention Used): Valium (diazepam) 5 mg IVP once ss Outcome: 10:42 Decision to Hospitalize by Provider. pm1 05/17 09:53 Patient left the ED. bp Signatures: Mallika Shell RN RN ss Maxwell Rossi NP CASHIER AND SALESPERSON pm1 Roberth Luis RN RN bp Díaz, Lanre, MD Lucrecia Chilel Latisha, RN RN lh3 Stacey Salinas 1 Ashley Lui, RN RN 4 Debbie Llanos Arie Bautista RN RN oh Corrections: (The following items were deleted from the chart) 05/14 08:15 07:15 Reassessment: Receive pt from previous shift, erika palma oh 05/16 16:00 05/14 05:23 Chief complaint: Patient states: that he has been on suboxone for since march to withdraw from opioids. C/O of back pain, shakes and hallucinations more frequently now. Patient also admits to drinking 3/4 bottle of whiskey a day. Last drink was last night and states that, " I have stopped drinking." Spouse and/or significant other states: that patient has been having hallucinations before, but it was sporadic, but now it is more frequently lh3
--- NOTE | 2021-05-14 10:43 | EDPHYS ---
Physician Documentation [facility] Name: Tomás Sotomayor Age: 51 yrs Sex: Male : 1970 Arrival Date: 05/14/2021 Time: 05:16 Bed 7 Private MD: ED Physician Lanre Díaz HPI: 05/14 06:29 This 51 yrs old Male presents to ER via Ambulatory with complaints of Psych pm1 Problem. 06:29 The patient presents to the emergency department with a history of substance abuse, pm1 Type: whisky, 0.75 bottles per day, 3. Onset: The symptoms/episode began/occurred yesterday. Past psychiatric history: Prior diagnosis: addiction history, alcohol, Oxycodone and fentanyl, Psychiatric medications include: none, Primary psychiatric physician: the patient does not have a primary psychiatric physician. Associated signs and symptoms: Pertinent positives; hallucinations, substance abuse, tremor, Chronic low back pain, Pertinent negatives: abdominal pain, chest pain, fever, homicidal ideation, nausea, shortness of breath, suicide ideation, vomiting. Severity of symptoms: in the emergency department the symptoms are worse. The patient has experienced similar episodes in the past, multiple times, but today's symptoms are worse. The patient has not recently seen a physician. 51-year-old male presenting to the ER with complaints of tremors and hallucinations. Patient abuses alcohol. Reports currently drinking three quarters bottle of whiskey per day. Last drink last night. Patient also has a history of abusing oxycodone and fentanyl obtained from the street. Currently taking Suboxone. Reports last took 3 months ago. Historical: - Allergies: 05:28 No Known Allergies; lh3 - Home Meds: 05:27 Eliquis Oral [Active]; Metoprolol Tartrate Oral [Active]; lh3 - PMHx: 05:27 AFIB; chroic back pain; Hypertension; lh3 - Immunization history:: Adult Immunizations up to date. - Social history:: Smoking status: Patient denies any tobacco usage or history of. ROS: 06:29 Constitutional: Negative for fever, chills, and weight loss, Cardiovascular: Negative pm1 for chest pain, palpitations, and edema, Respiratory: Negative for shortness of breath, cough, wheezing, and pleuritic chest pain. 06:29 MS/Extremity: Negative for injury and deformity, Skin: Negative for injury, rash, and discoloration. 06:29 Neuro: Negative for headache, weakness, numbness, tingling, and seizure. 06:29 Abdomen/GI: Positive for nausea, Negative for abdominal pain, diarrhea, constipation. 06:29 Back: Positive for Chronic low back pain. 06:29 Psych: Positive for drug dependence, alcohol dependence, visual hallucinations. 06:29 All other systems are negative. Exam: 06:29 Constitutional: This is a well developed, well nourished patient who is awake, alert, pm1 and in no acute distress. Head/Face: Normocephalic, atraumatic. Cardiovascular: Regular rate and rhythm with a normal S1 and S2. No pulse deficits. Respiratory: Lungs have equal breath sounds bilaterally, clear to auscultation and percussion. No rales, rhonchi or wheezes noted. No increased work of breathing, no retractions or nasal flaring. 06:29 Back: No spinal tenderness. No costovertebral tenderness. Full range of motion. Skin: Warm, dry with normal turgor. Normal color with no rashes, no lesions, and no evidence of cellulitis. MS/ Extremity: Pulses equal, no cyanosis. Neurovascular intact. Full, normal range of motion. 06:29 Eyes: Exam is negative for acute changes, Extraocular movements: intact throughout, Conjunctiva: no acute changes, no injection, Sclera: no acute changes, icterus, is not appreciated. 06:29 ENT: Exam is negative for acute changes, Mouth: Lips: normal, moist, Oral mucosa: normal, pink and intact, moist. 06:29 Neck: External neck: is normal, C-spine: no acute changes, vertebral tenderness, is not appreciated, ROM/movement: is normal, is supple. 06:29 Abdomen/GI: Inspection: obese Palpation: abdomen is soft and non-tender, in all quadrants. 06:29 Neuro: Exam negative for acute changes, Orientation: is normal, Mentation: is normal, Motor: moves all fours, Abnormal movements: resting tremor, is located in the right arm and left arm. Vital Signs: 05:23 BP 122 / 105; Pulse 87; Resp 25; Temp 97.3; Pulse Ox 100% on R/A; Weight 102.06 kg; lh3 Height 6 ft. 2 in. (187.96 cm); 06:47 BP 128 / 100; Pulse 86; Resp 20; Temp 97.3; Pulse Ox 100% ; Weight 102.6 kg; Height 6 wr ft. 2 in. (187.96 cm); Pain 8/10; 08:02 BP 132 / 76; Pulse 99; Resp 22; Pulse Ox 96% ; oh 11:41 BP 102 / 51; Pulse 97; Resp 20; Pulse Ox 99% on 3 lpm NC; oh 06:47 Body Mass Index 29.04 (102.60 kg, 187.96 cm) wr MDM: 06:06 Patient medically screened. [facility] 07:20 Data reviewed: vital signs. Data interpreted: Pulse oximetry: on room air is 100 %. pm1 Interpretation: normal. 10:11 Counseling: I had a detailed discussion with the patient and/or guardian regarding: the pm1 historical points, exam findings, and any diagnostic results supporting the discharge/admit diagnosis, lab results, radiology results, the need for further work-up and treatment in the hospital. 05/14 06:01 Order name: Acetaminophen [facility] 05/14 06:01 Order name: Basic Metabolic Panel [facility] 05/14 06:01 Order name: CBC with Diff; Complete Time: 07:16 [facility] 05/14 06:01 Order name: Hepatic Function; Complete Time: 07:16 [facility] 05/14 06:01 Order name: PT-INR; Complete Time: 07:16 [facility] 05/14 06:01 Order name: Ptt, Activated; Complete Time: 07:16 [facility] 05/14 06:01 Order name: Salicylate; Complete Time: 07:16 [facility] 05/14 06:01 Order name: Urine Drug Screen [facility] 05/14 06:01 Order name: Acetaminophen Level; Complete Time: 07:16 [facility] 05/14 06:01 Order name: Basic Metabolic Panel; Complete Time: 07:16 [facility] 05/14 06:01 Order name: CBC with Automated Diff; Complete Time: 07:16 [facility] 05/14 06:01 Order name: Alcohol Serum/Plasma; Complete Time: 07:16 [facility] 05/14 09:38 Order name: COVID-19 : Document "Date of Symptom Onset" if Symptomatic. pm1 05/14 15:23 Order name: SARS-COV-2 RT PCR; Complete Time: 17:13 EDMS 05/14 17:16 Order name: T4 Free; Complete Time: 17:25 EDMS 05/14 17:16 Order name: Thyroid Stimulating Hormone; Complete Time: 17:25 EDMS 05/15 05:00 Order name: CBC with Automated Diff; Complete Time: 06:23 EDMS 05/15 05:18 Order name: Comprehensive Metabolic Panel; Complete Time: 06:23 EDMS 05/15 05:18 Order name: Lipid Profile; Complete Time: 06:23 [facility] 05/15 06:14 Order name: CBC Smear Scan; Complete Time: 06:23 EDMS 05/16 03:40 Order name: CBC with Automated Diff EDMS 05/16 03:52 Order name: Comprehensive Metabolic Panel EDMS 05/16 04:07 Order name: Magnesium EDMS 05/16 12:18 Order name: Potassium MS 05/17 05:52 Order name: CBC with Automated Diff MS 05/17 06:23 Order name: Comprehensive Metabolic Panel MS 05/17 06:23 Order name: Magnesium MS 05/17 06:23 Order name: Transferrin Sat/Iron Binding MS 05/17 06:23 Order name: Ferritin [facility] 05/14 06:01 Order name: EKG; Complete Time: 06:02 [facility] 05/14 06:01 Order name: EKG - Nurse/Tech; Complete Time: 06:45 [facility] 05/14 06:01 Order name: IV Saline Lock; Complete Time: 06:36 [facility] 05/14 06:01 Order name: Labs collected and sent; Complete Time: 06:36 [facility] 05/14 06:01 Order name: Urine Dipstick-Ancillary (obtain specimen) [facility] 05/17 06:23 Order name: Vitamin B12 Level EDMS Administered Medications: 07:14 Drug: Ativan (LORazepam) 1 mg Route: IVP; Site: left forearm; oh 08:43 Follow up: Response: No adverse reaction oh 07:30 Drug: Banana Bag - (NS 0.9% 1000 ml, foLIC Acid 1 mg, Thiamine 100 mg, Multivitamin 1 oh amp) Route: IV; Rate: calculated rate; Site: left hand; 08:10 Drug: Ativan (LORazepam) 1 mg Route: IVP; Site: left hand; oh 08:43 Follow up: Response: No adverse reaction oh 08:56 CANCELLED (Duplicate Order): Ativan (LORazepam) 2 mg IVP once oh 08:57 Drug: Ativan (LORazepam) 2 mg Route: IVP; Site: left hand; oh 09:13 Drug: NS 0.9% 1000 ml Route: IV; Rate: 1000 ml; Site: left hand; oh 09:30 Drug: Valium (diazepam) 5 mg Route: IVP; Site: left hand; oh 10:05 Drug: HALdol (as decanoate) 5 mg Route: IM; Site: right vastus lateralis; ss 10:05 Drug: Versed (midazolam) 5 mg Route: IM; Site: left vastus lateralis; ss 10:31 Drug: Ativan (LORazepam) 2 mg Route: IVP; Site: left hand; oh 11:11 Drug: Geodon (ziprasidone) 10 mg Route: IM; Site: right vastus lateralis; kh1 11:12 Not Given (Other Intervention Used): HALdol (haloperidol) 5 mg IVP once ss 11:12 Not Given (Other Intervention Used): Versed (midazolam) 5 mg IVP once ss 15:31 Not Given (Other Intervention Used): Valium (diazepam) 5 mg IVP once ss Disposition: 05/18 05:32 Co-signature as Attending Physician, Lanre Díaz MD. [email or web address] Disposition Summary: 05/14/21 10:42 Hospitalization Ordered Hospitalization Status: Inpatient Admission pm1 Condition: Stable pm1 Problem: new pm1 Symptoms: have improved pm1 Bed/Room Type: Standard pm1 Provider: Alvaro Evans(05/14/21 10:43) pm1 Location: [facility] [[email or web address] ER [facility](05/14/21 13:18) [facility] Diagnosis - Alcohol dependence with withdrawal delirium pm1 Forms: - Medication Reconciliation Form pm1 - SBAR form pm1 Signatures: Dispatcher [employer] Mallika Cheek RN RN ss Maxwell Rossi, PEARL DIVER PEARL DIVER pm1 Lanre Díaz MD MD 7 Erika Collins RN RN 3 Stacey Salinas [facility] Mike Osorio Oneka RN RN oh Corrections: (The following items were deleted from the chart) 05/14 06:36 06:02 ETHANOL+C.LAB.BRZ ordered. EDMS EDMS 06:37 06:01 Suicide Screening ([place]) ordered. mh7 08:56 08:56 Ativan (LORazepam) 2 mg IVP once ordered. oh oh 10:43 10:42 Jose L Boland pm1 pm1 13:18 10:42 Intensive Care Unit pm1 ss 13:18 10:42 pm1 ss
[2021-05-14] MEDS ORDERED: ZIPRASIDONE MESYLA 20 MG/VIAL IM ONE ×2 (11:17→20:06)
--- NOTE | 2021-05-14 11:17 | P.HP ---
Certification for Inpatient With expected LOS: >2 Midnights Patient will require the following post-hospital care: None Practitioner: I am a practitioner with admitting privileges, knowledge of patient current condition, hospital course, and medical plan of care. Services: Services provided to patient in accordance with Admission requirements found in Title 42 Section 412.3 of the Code of Federal Regulations Patient History Date of Service: 05/14/21 Primary Care Provider: None Reason for admission: Altered Mental Status History of Present Illness: 51-year-old white male. He has a longstanding history of alcoholism and substance abuse. He is currently on Suboxone. Although his states that he has been drinking over the past 3 or 4 days his alcohol today was 0. For the past 3 to 4 days the patient has had worsening hallucinations and agitation. At the beginning of the 3 to 4-day period the hallucinations lasted just for a matter of moments and quickly recouped. Over the last 2 days his hallucinations have been almost constant. Currently in the ER he is extremely agitated and unable to answer questions. His replies are inappropriate to the questions asked. Patient's labs are within reason and do not appear to contribute to the patient's problems or provide insight into the problem. Allergies No Known Allergies Allergy (Unverified 10/08/11 10:10) Home medications list reviewed: Yes - Past Medical/Surgical History Diabetic: No -: Substance abuse (opiods) -: Substance abuse (alcohol) -: atrial fibrillation -: htn Past Surgical History: Patient denies surgical history Psychosocial/ Personal History: unemployed. Lives at home with . - Family History Father -: Heart disease Mother -: Heart disease (a fib), Other (see notes) (cancer) - Social History Smoking Status: Never smoker Alcohol use: Yes CD- Drugs: Yes Caffeine use: No Place of Residence: Home Review of Systems per General: Unremarkable Eyes: Unremarkable ENT: Unremarkable Respiratory: Unremarkable Cardiovascular: Unremarkable Gastrointestinal: Unremarkable Genitourinary: Unremarkable Musculoskeletal: Unremarkable Integumentary: Unremarkable Neurological: Confusion, Other (hallucinations and agitation) Physical Examination - Physical Exam General: Alert, Moderate distress, Confused, Delirious, Other (hallucinations and agitation) HEENT: Atraumatic, Normocephalic, PERRLA Neck: Supple, JVD not distended Respiratory: Clear to auscultation bilaterally, Normal air movement Cardiovascular: No edema, Normal pulses, Normal S1 S2 Capillary refill: Brisk Gastrointestinal: Soft and benign, Non-distended, No tenderness Musculoskeletal: No clubbing, No swelling, No contractures Integumentary: No rashes, No breakdown, No significant lesion Neurological: Normal strength at 5/5 x4 extr, Normal tone, Sensation intact, Other (confused, agitated), Abnormal affect External genitalia: Deferred Rectal: Deferred - Studies Laboratory Data (last 24 hrs) 05/14/21 06:20: PT 15.7 H, INR 1.36, APTT 32.0 05/14/21 06:20: WBC 10.50, Hgb 9.0 L, Hct 28.6 L, Plt Count 324 05/14/21 06:20: Sodium 138, Potassium 3.4 L, BUN 17, Creatinine 1.21, Glucose 105, Total Bilirubin 1.3 H, AST 118 H, ALT 85 H, Alkaline Phosphatase 99 Assessment and Plan - Plan Assessment: Agitation/Hallucinations Substance abuse A. Fib. HTN Plan: Agitation/Hallucinations: Admit to ICU due to agitation. Ativan prn, geodon prn, restraints as needed. Substance abuse: Suggest pt counseling at discharge. Consider possible Delerium Tremens in spite of family hx. of event. A. Fib. Continue Eliquis. HTN: Continue Metoprolol DVT PPx: On Eliquis 5mg bid CODE STATUS: Do not resuscitate Discharge Plan: Home Plan to discharge in: Unknown - Advance Directives Does patient have a Living Will: No Does patient have a Durable POA for Healthcare: No - Code Status/Comfort Care Code Status Assessed: Yes Code Status: Do Not Attempt Resuscitat Critical Care: No Time Spent Managing Pts Care (In Minutes): 70
[2021-05-14] MEDS ORDERED: WATER FOR INJ,STERILE 10 ML ONE ×2 (11:19→20:22)
[2021-05-14] MEDS ORDERED: LORazepam 2 MG/ML VIAL IV PRN (13:10)
[2021-05-14] MEDS ORDERED: ONDANSETRON 4 MG/2 ML VIAL IV PRN (14:52)
[2021-05-14] MEDS ORDERED: ACETAMINOPHEN 500 MG TAB PO PRN (14:52)
[2021-05-14] MEDS: NA CHLORIDE 0.9% 1,000 ML IV SCH (14:52)
[2021-05-14 17:16] LABS: Thyroid Stimulating Hormone 1.27 uIU/mL (0.360-3.740)
[2021-05-14] MEDS: METOPROLOL TAR 25 MG TAB PO SCH ×3 (18:00→20:30)
[2021-05-14] MEDS: LORazepam 2 MG/ML VIAL IV PRN (19:45)
[2021-05-14] MEDS: APIXABAN 5 MG TABLET PO SCH ×3 (19:45→21:00)
[2021-05-14] MEDS: ZIPRASIDONE MESYLA 20 MG/VIAL IM PRN (19:45)
[2021-05-14] MEDS: WATER FOR INJ,STERILE 10 ML IM PRN (19:46)
[2021-05-14] MEDS ORDERED: ONDANSETRON 4 MG/2 ML VIAL ONE (20:05)
[2021-05-14] MEDS ORDERED: APIXABAN 5 MG TABLET ONE (20:05)
[2021-05-14] MEDS ORDERED: METOPROLOL TAR 25 MG TAB ONE (20:06)
[2021-05-15] MEDS: LORazepam 2 MG/ML VIAL IV PRN ×4 (00:03→14:25)
[2021-05-15] MEDS: NA CHLORIDE 0.9% 1,000 ML IV SCH ×3 (00:15→20:11)
[2021-05-15] MEDS ORDERED: LORazepam 2 MG/ML VIAL ONE ×6 (00:45→21:11)
[2021-05-15] MEDS: ZIPRASIDONE MESYLA 20 MG/VIAL IM PRN ×4 (03:56→22:11)
[2021-05-15] MEDS ORDERED: ZIPRASIDONE MESYLA 20 MG/VIAL IM ONE ×3 (04:10→22:10)
[2021-05-15 04:38] LABS: Absolute Lymphocytes (CBC) 1.1 K/uL (0.7-4.9); Basophils % 0.8 % (0-1.3); Hematocrit 24.8 % (39.6-49.0); RBC Red Blood Cell Count 3.51 M/uL (4.33-5.43)
[2021-05-15 05:11] LABS: ALT/SGPT 63 U/L (12-78); AST/SGOT 97 U/L (15-37); Albumin 3.5 g/dL (3.4-5.0); Alkaline Phosphatase 76 U/L (45-117); BUN Blood Urea Nitrogen 14 mg/dL (7-18); Bicarbonate 26 mmol/L (21-32); Bilirubin Total 0.9 mg/dL (0.2-1.0); Glucose Level 82 mg/dL (74-106); HDL Cholesterol 38 mg/dL (40-60); LDL Cholesterol, Calculated 131 (<130); Protein, Total 6.8 g/dL (6.4-8.2); Sodium Level 145 mmol/L (136-145)
[2021-05-15] MEDS: METOPROLOL TAR 25 MG TAB PO SCH ×2 (06:00→18:00)
[2021-05-15 06:14] LABS: Basophilic Stippling 1+; Blood Morphology Comment NOTED (NOT SEEN); Hypochromasia 1+; Platelet Estimate ADEQ; Polychromasia SLIGHT; White Blood Cell Scan OK (OK)
[2021-05-15] MEDS ORDERED: POTASSIUM 25 MEQ EFFERV TAB PO ONE (06:35)
[2021-05-15] MEDS ORDERED: POTASSIUM 25 MEQ EFFERV TAB ONE (06:57)
[2021-05-15] MEDS ORDERED: METOPROLOL TAR 50 MG TAB ONE (07:07)
[2021-05-15] MEDS ORDERED: APIXABAN 5 MG TABLET ONE ×2 (07:37→20:24)
[2021-05-15] MEDS: APIXABAN 5 MG TABLET PO SCH ×2 (08:06→20:11)
[2021-05-15] MEDS ORDERED: THIAMINE HCL 100 MG TABLET PO SCH (09:00)
[2021-05-15] MEDS ORDERED: WATER FOR INJ,STERILE 10 ML ONE ×2 (10:10→22:11)
[2021-05-15] MEDS ORDERED: NA CHLORIDE 0.9% 1,000 ML ONE (12:24)
[2021-05-15] MEDS: WATER FOR INJ,STERILE 10 ML IM PRN ×2 (16:10→22:11)
--- NOTE | 2021-05-15 16:43 | P.PN ---
Subjective Date of Service: 05/15/21 Primary Care Provider: None Chief Complaint: Altered Mental Status Subjective: Improving Review of Systems 10-point ROS is otherwise unremarkable Physical Examination - Vital Signs Temperature: 97.5 F Blood Pressure: 106/81 Pulse: 108 Respirations: 18 Pulse Ox (%): 98 - Physical Exam General: In no apparent distress, Delirious HEENT: Atraumatic, PERRLA, EOMI Neck: Supple, JVD not distended Respiratory: Clear to auscultation bilaterally, Normal air movement Cardiovascular: Regular rate/rhythm, Normal S1 S2 Gastrointestinal: Normal bowel sounds, No tenderness Musculoskeletal: No tenderness Integumentary: No rashes Neurological: Normal speech, Normal tone, Normal affect Lymphatics: No axilla or inguinal lymphadenopathy Assessment & Plan - Problems (Diagnosis) (1) Delirium tremens Current Visit: Yes Status: Acute Plan: switch the patient to librium. Dc the ativan (2) Chronic alcoholism Current Visit: Yes Status: Chronic Plan: start an MVI. Have given the patient thiamine. Will start this as oral medications. (3) Opiate dependence Current Visit: Yes Status: Acute Plan: He is being treated with suboxone as an outpatient. Will allow them to continue that. Qualifiers: Substance use status: in remission Qualified Code(s): F11.21 - Opioid dependence, in remission Discharge Plan: Home Plan to discharge in: 48 Hours - Code Status/Comfort Care Code Status Assessed: No Critical Care: No Time Spent Managing Pts Care (In Minutes): 20
[2021-05-15] MEDS ORDERED: METOPROLOL TAR 25 MG TAB ONE (18:42)
[2021-05-15] MEDS ORDERED: LORazepam 2 MG/ML VIAL IV ONE (20:13)
[2021-05-15] MEDS ORDERED: chlordiazePOXIDE HCl 25 MG CAP ONE (20:25)
[2021-05-15] MEDS ORDERED: chlordiazePOXIDE HCl 25 MG CAP PO SCH (21:00)
[2021-05-16] MEDS ORDERED: NA CHLORIDE 0.9% 1,000 ML ONE (00:53)
[2021-05-16 03:36] LABS: Absolute Lymphocytes (CBC) 1.4 K/uL (0.7-4.9); Basophils % 0.8 % (0-1.3); Hematocrit 25.5 % (39.6-49.0); Lymphocytes % 26.3 % (15.3-44.8); MPV 8.2 fL (7.6-11.3); RBC Red Blood Cell Count 3.63 M/uL (4.33-5.43)
[2021-05-16 03:52] LABS: ALT/SGPT 67 U/L (12-78); AST/SGOT 106 U/L (15-37); Albumin 3.6 g/dL (3.4-5.0); Alkaline Phosphatase 104 U/L (45-117); BUN Blood Urea Nitrogen 8 mg/dL (7-18); Bicarbonate 31 mmol/L (21-32); Bilirubin Total 0.6 mg/dL (0.2-1.0); Glucose Level 125 mg/dL (74-106); Potassium 3.2 mmol/L (3.5-5.1); Protein, Total 6.9 g/dL (6.4-8.2); Sodium Level 146 mmol/L (136-145)
[2021-05-16] MEDS: METOPROLOL TAR 25 MG TAB PO SCH ×2 (06:00→17:45)
[2021-05-16] MEDS ORDERED: POTASSIUM 25 MEQ EFFERV TAB PO ONE (06:14)
--- NOTE | 2021-05-16 06:32 | P.PN ---
Subjective Date of Service: 05/16/21 Primary Care Provider: None Chief Complaint: Altered Mental Status Subjective: Improving, Other (Less agitation noted. Patient admits to severe alcohol use) Physical Examination - Vital Signs Temperature: 98.5 F Blood Pressure: 143/95 Pulse: 93 Respirations: 18 Pulse Ox (%): 94 Assessment & Plan Discharge Plan: Home Plan to discharge in: 72 Hours Physician Review Additional Text: COVID: Negative Physical Exam: GENERAL: The patient is a well-developed, well-nourished, in no apparent distress. Alert and oriented x3. VITAL SIGNS: Reviewed HEENT: Head is normocephalic and atraumatic. Extraocular muscles are intact. Pupils are equal, round, and reactive to light and accommodation. Nares appeared normal. Mouth is well hydrated and without lesions. Mucous membranes are moist. NECK: Supple. No carotid bruits. No lymphadenopathy or thyromegaly. LUNGS: Clear to auscultation. No crackles or wheezes are heard. HEART: Regular rate and rhythm, no appreciable gallops, rubs, murmurs or extra heart sounds ABDOMEN: Soft, nontender, and nondistended. Positive bowel sounds. No hepatosplenomegaly was noted. EXTREMITIES: Without any cyanosis, clubbing, rash, lesions or peripheral edema. NEUROLOGIC: The patient is oriented to person, place and time. Strength and sensation are grossly intact. Face is symmetric. SKIN: Normal color, turgor and temperature. No ulcerations or rashes noted. Impression: Acute encephalopathy secondary to alcohol withdrawal Alcohol abuse Atrial fibrillation on chronic anticoagulation therapy Hypertension Anemia of chronic disease GERD Chronic pain Plan: Acute encephalopathy secondary to alcohol withdrawal: Overall improved. Will change his Librium to 25 mg 3 times a day. Will provide Ativan as needed for agitation. Continue to wean off benzodiazepine. Spoke with patient at length concerning alcohol abuse. Patient admits to severe alcohol use. Patient plans to quit. Addressed the complications and severe side effects of alcohol abuse. Continue thiamine and folic acid. Anticipate continued improvement. Monitor closely. If taking good oral intake will Hep-Lock IV. Alcohol abuse: Patient plans to quit alcohol entirely. Continue with above plan of care. Atrial fibrillation on chronic anticoagulation therapy: Continue Eliquis. Will monitor closely. Hypertension: Continue with medication metoprolol 25 mg 1 pill twice daily. Parameters in place. Anemia of chronic disease: Will monitor closely especially since the patient is on chronic anticoagulation therapy. Will check iron and B12 studies. GERD: Continue Protonix Hypernatremia: Continue with IV fluids. IV fluids adjusted today. Elevated liver function likely related to alcohol use: Overall improved. Monitor closely. Chronic pain: Restart Suboxone. Code Status: Full Code DVT prophylaxis: Joseph Advanced Care Planning-30 minutes: Home at discharge Time Spent Managing Pts Care (In Minutes): 55
[2021-05-16] MEDS ORDERED: POTASSIUM 25 MEQ EFFERV TAB ONE (06:44)
[2021-05-16] MEDS ORDERED: METOPROLOL TAR 25 MG TAB ONE ×2 (06:44→16:34)
[2021-05-16] MEDS: NACHLORIDE 0.45% 1,000 ML IV SCH ×2 (06:57→20:20)
[2021-05-16] MEDS ORDERED: NACHLORIDE 0.45% 1,000 ML IV ONE (07:14)
[2021-05-16] MEDS ORDERED: APIXABAN 5 MG TABLET ONE ×2 (07:52→21:21)
[2021-05-16] MEDS ORDERED: MULTIVITAMIN TAB PO ONE (07:52)
[2021-05-16] MEDS ORDERED: THIAMINE HCL 100 MG TABLET ONE (07:52)
[2021-05-16] MEDS ORDERED: chlordiazePOXIDE HCl 25 MG CAP ONE (07:53)
[2021-05-16 08:32] VITALS: O2SAT 98
[2021-05-16] MEDS: THIAMINE 200 MG/2 ML INJ IVP SCH (08:59)
[2021-05-16] MEDS: APIXABAN 5 MG TABLET PO SCH ×2 (08:59→21:00)
[2021-05-16] MEDS: MULTIVITAMIN TAB PO SCH (08:59)
[2021-05-16] MEDS ORDERED: chlordiazePOXIDE HCl 25 MG CAP PO SCH (09:00)
[2021-05-16] MEDS: LORazepam 2 MG/ML VIAL IV PRN ×2 (09:00→16:30)
[2021-05-16] MEDS ORDERED: LORazepam 2 MG/ML VIAL ONE ×3 (09:11→21:26)
[2021-05-16] MEDS ORDERED: Ringers Lactate 0 ML IV ONE (10:58)
[2021-05-16 13:44] VITALS: TEMP 98.5
[2021-05-16] MEDS ORDERED: ACETAMINOPHEN 500 MG TAB ONE (15:53)
[2021-05-16 16:00] VITALS: BMI 29.0
[2021-05-16] MEDS ORDERED: SUBOXONE SL SCH (21:00)
[2021-05-17 05:35] LABS: Absolute Lymphocytes (CBC) 1.1 K/uL (0.7-4.9); Basophils % 0.8 % (0-1.3); Hematocrit 25.5 % (39.6-49.0); Lymphocytes % 25.1 % (15.3-44.8); MPV 7.9 fL (7.6-11.3); RBC Red Blood Cell Count 3.62 M/uL (4.33-5.43)
[2021-05-17] MEDS: METOPROLOL TAR 25 MG TAB PO SCH (06:00)
[2021-05-17 06:23] LABS: ALT/SGPT 74 U/L (12-78); AST/SGOT 105 U/L (15-37); Albumin 3.6 g/dL (3.4-5.0); Alkaline Phosphatase 93 U/L (45-117); BUN Blood Urea Nitrogen 5 mg/dL (7-18); Bicarbonate 31 mmol/L (21-32); Bilirubin Total 0.7 mg/dL (0.2-1.0); Ferritin 14.7 ng/mL (26-388); Glucose Level 109 mg/dL (74-106); Magnesium 1.9 mg/dL (1.8-2.4); Potassium 3.3 mmol/L (3.5-5.1); Sodium Level 143 mmol/L (136-145); Transferrin 345 mg/dL (200-360)
[2021-05-17] MEDS ORDERED: PANTOPRAZOLE 40MG TABLET PO SCH ×2 (06:30→07:30)
--- NOTE | 2021-05-17 06:38 | P.PN ---
Subjective Date of Service: 05/17/21 Primary Care Provider: None Chief Complaint: Altered Mental Status Subjective: Improving, Doing well Physical Examination - Vital Signs Temperature: 98.5 F Blood Pressure: 141/63 Pulse: 75 Respirations: 16 Pulse Ox (%): 98 Assessment & Plan Discharge Plan: Home Plan to discharge in: 24 Hours Physician Review Additional Text: COVID: Negative Physical Exam: GENERAL: The patient is a well-developed, well-nourished, in no apparent distress. Alert and oriented x3. VITAL SIGNS: Reviewed HEENT: Head is normocephalic and atraumatic. Extraocular muscles are intact. Pupils are equal, round, and reactive to light and accommodation. Nares appeared normal. Mouth is well hydrated and without lesions. Mucous membranes are moist. NECK: Supple. No carotid bruits. No lymphadenopathy or thyromegaly. LUNGS: Clear to auscultation. No crackles or wheezes are heard. HEART: Regular rate and rhythm, no appreciable gallops, rubs, murmurs or extra heart sounds ABDOMEN: Soft, nontender, and nondistended. Positive bowel sounds. No hepatosplenomegaly was noted. EXTREMITIES: Without any cyanosis, clubbing, rash, lesions or peripheral edema. NEUROLOGIC: The patient is oriented to person, place and time. Strength and sensation are grossly intact. Face is symmetric. SKIN: Normal color, turgor and temperature. No ulcerations or rashes noted. Impression: Acute encephalopathy secondary to alcohol withdrawal Alcohol abuse Atrial fibrillation on chronic anticoagulation therapy Hypertension Anemia of chronic disease GERD Chronic pain Plan: Acute encephalopathy secondary to alcohol withdrawal: Patient doing well at this time. Patient has received limited Ativan. Patient able to ambulate appropriately. Will plan for discharge today with as needed Librium. Patient back to baseline. Alcohol abuse: Patient plans to quit alcohol entirely. Continue with above plan of care. Atrial fibrillation on chronic anticoagulation therapy: Continue Eliquis 5 mg 1 pill twice daily. Will monitor closely. Hypertension: Continue with medication metoprolol 50 mg mg 1 pill twice daily. Parameters in place. Anemia of chronic disease with iron deficiency: Patient will continue with iron supplementation at discharge GERD: Continue Protonix 40 mg daily Hypernatremia: Resolved. Continue with oral intake. Elevated liver function likely related to alcohol use: Overall improved. Monitor closely. Chronic pain: Continue Suboxone. Code Status: Full Code DVT prophylaxis: Eliquis Advanced Care Planning-30 minutes: Home at discharge Time Spent Managing Pts Care (In Minutes): 55
[2021-05-17] MEDS ORDERED: POTASSIUM 25 MEQ EFFERV TAB ONE (07:05)
[2021-05-17] MEDS ORDERED: METOPROLOL TAR 50 MG TAB ONE (07:05)
[2021-05-17] MEDS ORDERED: MULTIVITAMIN TAB PO ONE (08:36)
[2021-05-17] MEDS ORDERED: PANTOPRAZOLE 40MG TABLET PO ONE (08:37)
[2021-05-17] MEDS ORDERED: THIAMINE HCL 100 MG TABLET ONE (08:37)
[2021-05-17] MEDS ORDERED: APIXABAN 5 MG TABLET ONE (08:37)
[2021-05-17] MEDS ORDERED: FOLIC ACID 1 MG TABLET ONE (08:37)
[2021-05-17 08:43] VITALS: BP 141/63
--- NOTE | 2021-05-17 08:52 | P.DS ---
Admission Date: 05/14/21 Discharge Date: 05/17/21 Primary Care Provider: None Disposition: ROUTINE DISCHARGE Discharge Condition: GOOD Reason for Admission: Altered Mental Status Consultations: none Procedures: COVID: Negative Medical Problem List: Acute encephalopathy secondary to alcohol withdrawal Alcohol abuse Atrial fibrillation on chronic anticoagulation therapy Hypertension Anemia of chronic disease GERD Chronic pain Brief History of Present Illness: 51-year-old white male. He has a longstanding history of alcoholism and substance abuse. He is currently on Suboxone. She came in with agitation and altered mental status related to alcohol use. Patient required hospitalization for alcohol withdrawal. Hospital Course: Patient presented with acute encephalopathy secondary to alcohol withdrawal. Patient with history of severe alcohol abuse. Patient drinks heavilywhiskey on a daily basis. Patient required hospitalization. Patient received IV benzodiazepine with improvement. Patient's condition has significantly improved. Patient back to his baseline. At discharge patient appropriate. Alcohol cessation education addressed in detail. Patient plans to quit. Patient understands the risk of continued use of alcohol. At discharge will provide Librium 10 mg 1 pill twice daily as needed for agitation. Patient will be given a limited supply. He is not to drink with Librium. Patient will continue with folic acid 1 mg daily and thiamine 100 mg daily at discharge. Recommend follow-up with PCP within 1 week to follow-up his hospitalization and continue his care. Continued alcohol cessation is recommended. Patient with atrial fibrillation on chronic anticoagulation therapy. Overall stable at this time. Patient will continue with Eliquis 5 mg 1 pill twice daily and metoprolol 50 mg 1 pill twice daily. Patient with hypertension. At discharge patient will continue with metoprolol. Metoprolol was increased to 50 mg 1 pill twice daily for better control. At discharge she will continue with metoprolol 50 mg 1 pill twice daily. Recommend to maintain blood pressure less than 130/80. Further adjustment can be done by his PCP. Patient with anemia of chronic disease. Iron deficiency was identified. At discharge patient will continue with iron 325 mg 1 pill twice daily. Recommend to recheck labCBC in 2 to 4 weeks to monitor his progress. Patient with GERD. At discharge patient will continue with Protonix 40 mg daily. Patient with chronic pain. Patient sees pain management. At discharge she will continue with Suboxone as directed. Follow-up with pain management to further address. Vital Signs/Physical Exam: Temp Pulse Resp BP Pulse Ox 98.5 F 75 16 141/63 H 98 05/17/21 08:50 05/17/21 08:50 05/17/21 08:50 05/17/21 08:50 05/17/21 08:50 General: Alert, In no apparent distress, Oriented x3, Cooperative HEENT: Atraumatic Neck: Supple Respiratory: Clear to auscultation bilaterally, Normal air movement Cardiovascular: Normal pulses, Regular rate/rhythm Gastrointestinal: Normal bowel sounds, No ascites, No tenderness, No masses, No rebound, No guarding Musculoskeletal: No erythema, No tenderness, No warmth Integumentary: No tenderness/swelling Neurological: Normal speech, Normal strength at 5/5 x4 extr, Normal tone Laboratory Data at Discharge: WBC 4.20 K/uL (4.3-10.9) L D 05/17/21 05:22 Hgb 7.8 g/dL (13.6-17.9) L 05/17/21 05:22 Hct 25.5 % (39.6-49.0) L 05/17/21 05:22 Plt Count 189 K/uL (152-406) 05/17/21 05:22 PT 15.7 SECONDS (9.5-12.5) H 05/14/21 06:20 INR 1.36 05/14/21 06:20 APTT 32.0 SECONDS (24.3-36.9) 05/14/21 06:20 Sodium 143 mmol/L (136-145) 05/17/21 05:22 Potassium 3.3 mmol/L (3.5-5.1) L 05/17/21 05:22 BUN 5 mg/dL (7-18) L 05/17/21 05:22 Creatinine 0.57 mg/dL (0.55-1.3) 05/17/21 05:22 Glucose 109 mg/dL (74-106) H 05/17/21 05:22 Magnesium 1.9 mg/dL (1.8-2.4) 05/17/21 05:22 Total Bilirubin 0.7 mg/dL (0.2-1.0) 05/17/21 05:22 AST 105 U/L (15-37) H 05/17/21 05:22 ALT 74 U/L (12-78) 05/17/21 05:22 Alkaline Phosphatase 93 U/L (45-117) 05/17/21 05:22 Triglycerides 149 mg/dL (<150) 05/15/21 04:26 Cholesterol 199 mg/dL (<200) 05/15/21 04:26 HDL Cholesterol 38 mg/dL (40-60) L 05/15/21 04:26 Cholesterol/HDL Ratio 5.24 05/15/21 04:26 Home Medications: Apixaban [Eliquis] 5 mg PO BID tablet 05/17/21 Chlordiazepoxide HCl [Librium] 10 mg PO BID PRN #7 capsule 05/17/21 Folic Acid 1 mg PO DAILY #30 tablet 05/17/21 Metoprolol Tartrate [Lopressor*] 50 mg PO BID 6AM 6PM #60 tab 05/17/21 Pantoprazole [Protonix Tab*] 40 mg PO DAILY #30 tab 05/17/21 Thiamine HCl 100 mg PO DAILY #30 tablet 05/17/21 New Medications: Folic Acid 1 mg PO DAILY #30 tablet Chlordiazepoxide HCl [Librium] 10 mg PO BID PRN #7 capsule PRN Reason: Agitation Metoprolol Tartrate [Lopressor*] 50 mg PO BID 6AM 6PM #60 tab Pantoprazole [Protonix Tab*] 40 mg PO DAILY #30 tab Thiamine HCl 100 mg PO DAILY #30 tablet Physician Discharge Instructions: Patient presented with acute encephalopathy secondary to alcohol withdrawal. Patient with history of severe alcohol abuse. Patient drinks heavilywhiskey on a daily basis. Patient required hospitalization. Patient received IV benzodiazepine with improvement. Patient's condition has significantly improved. Patient back to his baseline. At discharge patient appropriate. Alcohol cessation education addressed in detail. Patient plans to quit. Patient understands the risk of continued use of alcohol. At discharge will provide Librium 10 mg 1 pill twice daily as needed for agitation. Patient will be given a limited supply. He is not to drink with Librium. Patient will continue with folic acid 1 mg daily and thiamine 100 mg daily at discharge. Recommend follow-up with PCP within 1 week to follow-up his hospitalization and continue his care. Continued alcohol cessation is recommended. Patient with atrial fibrillation on chronic anticoagulation therapy. Overall stable at this time. Patient will continue with Eliquis 5 mg 1 pill twice daily and metoprolol 50 mg 1 pill twice daily. Patient with hypertension. At discharge patient will continue with metoprolol. Metoprolol was increased to 50 mg 1 pill twice daily for better control. At discharge she will continue with metoprolol 50 mg 1 pill twice daily. Recommend to maintain blood pressure less than 130/80. Further adjustment can be done by his PCP. Patient with anemia of chronic disease. Iron deficiency was identified. At discharge patient will continue with iron 325 mg 1 pill twice daily. Recommend to recheck labCBC in 2 to 4 weeks to monitor his progress. Patient with GERD. At discharge patient will continue with Protonix 40 mg daily. Patient with chronic pain. Patient sees pain management. At discharge she will continue with Suboxone as directed. Follow-up with pain management to further address. Diet: AHA Activity: Fall precautions Followup: NONE,NONE [Primary Care Provider] - Time spent managing pt's care (in minutes): 55
[2021-05-17] MEDS: THIAMINE 200 MG/2 ML INJ IVP SCH (09:00)
[2021-05-17] MEDS: APIXABAN 5 MG TABLET PO SCH (09:00)
[2021-05-17] MEDS: MULTIVITAMIN TAB PO SCH (09:00)
[2021-05-17] MEDS ORDERED: FOLIC ACID 1 MG TABLET PO SCH (09:00)
[2021-05-17] MEDS ORDERED: SUBOXONE SL SCH (17:00)
[2021-05-17] MEDS ORDERED: METOPROLOL TAR 50 MG TAB PO SCH (18:00)
== END 2021-05-17 10:25 | disposition home or self-care (01) | DRG 897 ==
LOC: ER 05:13 → ERHOLD 11:05
PROVIDERS: ADMIT Internal Medicine; ATTEND Family Medicine
DX: F10.231 Alcohol dependence with withdrawal delirium (principal); G93.40 Encephalopathy, unspecified; E87.0 Hyperosmolality and hypernatremia; I48.91 Unspecified atrial fibrillation; I10 Essential (primary) hypertension; D63.8 Anemia in other chronic diseases classified elsewhere; K21.9 Gastro-esophageal reflux disease without esophagitis; D50.9 Iron deficiency anemia, unspecified; G89.29 Other chronic pain; R79.89 Other specified abnormal findings of blood chemistry; F11.21 Opioid dependence, in remission; Z79.01 Long term (current) use of anticoagulants; Z20.822 Contact with and (suspected) exposure to COVID-19
CPT/HCPCS: 36415; 80048; 80053; 80061; 80076; 80320; 80329; 82607; 82728; 83540; 83735; 84132; 84439; 84443; 84466; 85025; 85610; 85730; 96372; 97161; 99284; J1630; J2250; J2405; J3360; J3411; J3486; J7030; J7120; U0003

== ENCOUNTER 2021-06-15 09:50 | Inpatient (IN) | payer SELFPAY ==
[2021-06-15 10:42] LABS: Absolute Lymphocytes (CBC) 0.9 K/uL (0.7-4.9); Basophils % 0.7 % (0-1.3); Hematocrit 24.5 % (39.6-49.0); Lymphocytes % 11.6 % (15.3-44.8); RBC Red Blood Cell Count 3.55 M/uL (4.33-5.43)
[2021-06-15] MEDS ORDERED: DIAZEPAM 10 MG/2 ML INJ SYRINGE ONE (10:58)
[2021-06-15] MEDS ORDERED: NA CHLORIDE 0.9% 1,000 ML ONE (10:58)
[2021-06-15 10:59] LABS: ALT/SGPT 45 U/L (12-78); AST/SGOT 67 U/L (15-37); Albumin 4.1 g/dL (3.4-5.0); Alkaline Phosphatase 85 U/L (45-117); BUN Blood Urea Nitrogen 9 mg/dL (7-18); Bicarbonate 26 mmol/L (21-32); Bilirubin Direct 0.2 mg/dL (0-0.2); Bilirubin Total 0.7 mg/dL (0.2-1.0); Glucose Level 114 mg/dL (74-106); Lipase 78 U/L (73-393); Magnesium 1.9 mg/dL (1.8-2.4); Potassium 3.2 mmol/L (3.5-5.1); Protein, Total 8.1 g/dL (6.4-8.2); Sodium Level 142 mmol/L (136-145)
[2021-06-15 11:02] LABS: Protime INR 1.48
--- NOTE | 2021-06-15 11:25 | RAD REPORT ---
EXAM DESCRIPTION: RAD - Hand Left 3 View - 06/15/2021 11:18 am CLINICAL HISTORY: pain, swelling COMPARISON: No comparisons FINDINGS: Fourth metacarpal fracture with dorsal angulation. This involves the proximal diaphysis. N o other fractures identified. The fracture has mild dorsal displacement. IMPRESSION: Mildly displaced and angulated fourth metacarpal fracture.
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
[2021-06-15] MEDS ORDERED: LORazepam 2 MG/ML VIAL ONE ×3 (12:12→16:43)
[2021-06-15] MEDS ORDERED: PANTOPRAZOLE 40 MG INJ ONE (12:13)
[2021-06-15] MEDS ORDERED: NA CHLORIDE 0.9% 250 ML ONE ×2 (12:13→16:06)
[2021-06-15 12:29] LABS: Anisocytosis 1+; Blood Morphology Comment NOTED (NOT SEEN); Hypochromasia 1+; Platelet Estimate ADEQ; White Blood Cell Scan OK (OK)
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
[2021-06-15] MEDS ORDERED: ONDANSETRON 4 MG/2 ML VIAL IV PRN (17:57)
[2021-06-15] MEDS ORDERED: HYDRALAZINE HCL 20 MG/ML VIAL IV PRN (17:57)
[2021-06-15] MEDS: D5 0.45 NS 1,000 ML IV SCH (18:22)
[2021-06-15] MEDS: chlordiazePOXIDE HCl 5 MG CAP PO SCH ×2 (18:22→22:18)
[2021-06-15] MEDS: PANTOPRAZOLE INJ 80 MG in NA CHLORIDE 0.9% 250 ML IV SCH (18:24)
--- NOTE | 2021-06-15 18:45 | RAD REPORT ---
EXAM DESCRIPTION: RAD - Chest Single View - 06/15/2021 6:13 pm CLINICAL HISTORY: alcohol abuse, Atrial fibrillation Chest pain. COMPARISON: Chest Single View dated 10/27/2019 FINDINGS: Portable technique limits examination quality. The lungs are grossly clear. The heart is normal in size. No displaced fractures. IMPRESSION: No acute intrathoracic process suspected.
[2021-06-15 20:59] LABS: Urine Appearance CLEAR (Clear); Urine Bilirubin NEGATIVE (Negative); Urine Blood NEGATIVE (Negative); Urine Color YELLOW (Yellow); Urine Glucose NEGATIVE (Negative); Urine Protein NEGATIVE (Negative); Urine Specific Gravity 1.015 (1.005-1.030); Urine pH 6.5 (5.0-7.0)
[2021-06-15 21:21] LABS: Urine Microscopic Reflex NO UMIC
[2021-06-15] MEDS: METOPROLOL TAR 50 MG TAB PO SCH (22:18)
[2021-06-15] MEDS: THIAMINE HCL 100 MG TABLET PO SCH (22:19)
[2021-06-15] MEDS: OCTREOTIDE 500 MCG in NA CHLORIDE 0.9% 500 ML IV SCH (22:51)
[2021-06-16 01:00] LABS: Hematocrit 25.2 % (39.6-49.0)
[2021-06-16 01:14] VITALS: BMI 29.5
[2021-06-16] MEDS: ACETAMINOPHEN 500 MG TAB PO PRN (01:24)
[2021-06-16] MEDS: LORazepam 2 MG/ML VIAL IV PRN ×7 (01:24→15:44)
[2021-06-16] MEDS: OCTREOTIDE 500 MCG in NA CHLORIDE 0.9% 500 ML IV SCH ×2 (05:09→18:36)
[2021-06-16] MEDS: PANTOPRAZOLE INJ 80 MG in NA CHLORIDE 0.9% 250 ML IV SCH ×2 (05:09→18:36)
[2021-06-16 05:32] LABS: Absolute Lymphocytes (CBC) 0.8 K/uL (0.7-4.9); Basophils % 0.8 % (0-1.3); Lymphocytes % 11.6 % (15.3-44.8); RBC Red Blood Cell Count 3.54 M/uL (4.33-5.43)
--- NOTE | 2021-06-16 05:50 | P.PN ---
Subjective Date of Service: 06/16/21 Primary Care Provider: [facility] Chief Complaint: Alcohol withdrawal Subjective: Other (Patient had some agitation this morning. Patient wanting to leave. Sitter at bedside.) Physical Examination - Vital Signs Temperature: 97.4 F Blood Pressure: 167/80 Pulse: 110 Respirations: 18 Pulse Ox (%): 96 - Studies Laboratory Data (last 24 hrs) 06/15/21 10:30: Sodium 142, Potassium 3.2 L, BUN 9, Creatinine 0.83, Glucose 114 H, Magnesium 1.9, Total Bilirubin 0.7, AST 67 H, ALT 45, Alkaline Phosphatase 85, Lipase 78 06/15/21 10:30: PT 17.1 H, INR 1.48 06/15/21 10:30: WBC 7.30, Hgb 7.3 L, Hct 24.5 L, Plt Count 220 06/15/21 10:22: PT Cancelled, INR Cancelled 06/15/21 10:22: Sodium Cancelled, Potassium Cancelled, BUN Cancelled, Creatinine Cancelled, Glucose Cancelled, Magnesium Cancelled, Total Bilirubin Cancelled, AST Cancelled, ALT Cancelled, Alkaline Phosphatase Cancelled, Lipase Cancelled 06/15/21 10:22: WBC Cancelled, Hgb Cancelled, Hct Cancelled, Plt Count Cancelled Assessment & Plan Discharge Plan: Home Plan to discharge in: 72 Hours Physician Review Additional Text: COVID: negative X-ray: COMPARISON: No comparisons FINDINGS: Fourth metacarpal fracture with dorsal angulation. This involves the proximal diaphysis. No other fractures identified. The fracture has mild dorsal displacement. IMPRESSION: Mildly displaced and angulated fourth metacarpal fracture. Physical Exam: GENERAL: Patient alert and cooperative. Some agitation noted. VITAL SIGNS: Reviewed HEENT: Neck supple LUNGS: Clear to auscultation. No crackles or wheezes are heard. HEART: Sinus tachycardia with rate around 110 ABDOMEN: Soft, nontender, and nondistended. Positive bowel sounds. No hepatosplenomegaly was noted. EXTREMITIES: Without any cyanosis, clubbing, rash, lesions or peripheral edema. NEUROLOGIC: Patient alert and oriented. Patient with increased agitation. SKIN: Normal color, turgor and temperature. No ulcerations or rashes noted. Impression: Alcohol abuse with withdrawal Melena and acute on chronic anemia suspect upper GI bleed with underlying GERD Mildly displaced and angulated left fourth metacarpal fracture Chronic atrial fibrillation on chronic anticoagulation therapyEliquis Hypertension Depression Chronic pain Plan: Alcohol abuse with withdrawal: Patient with increased agitation. Will increase Librium to 25 mg 1 pill twice daily. We will continue to taper off. Will give Ativan this morning. Continue with IV fluids, IV Protonix drip, IV Sandostatin. Patient reports no significant melena at this time. Spoke with GI yesterday. GI plans for EGD to further evaluate. Continue to hold Eliquis. Physical therapy to assess ambulation. Patient with sitter at bedside. Continue to monitor closely. Patient received 1 unit of blood. Will recheck hemoglobin hematocrit later today. Maintain hemoglobin above 7.5. Alcohol cessation addressed in detail. Patient plans to quit. Anticipate continued improvement over the next 3 days. Melena and acute on chronic anemia suspect upper GI bleed with underlying GERD: Patient remains on Protonix drip and Sandostatin drip. Patient n.p.o. at this time for EGD this morning with GI. Continue to hold Eliquis. Mildly displaced and angulated left fourth metacarpal fracture: Splint in place. This can be further evaluated as an outpatient by orthopedics. Chronic atrial fibrillation on chronic anticoagulation therapyEliquis: Sinus tachycardia noted. Hold Eliquis at this time. Continue metoprolol. Hypertension: Continue metoprolol 100 mg 1 pill twice daily and lisinopril. Depression: Continue Celexa 10 mg daily. Chronic pain: Continue with Suboxone 1 pill twice daily. Patient will need to use home medication. Code Status: Full Code DVT prophylaxis: SCD Advanced Care Planning-30 minutes: Home at discharge Time Spent Managing Pts Care (In Minutes): 55
[2021-06-16] MEDS ORDERED: METOPROLOL TARTRATE 5 MG/5 ML INJ IV PRN (05:52)
[2021-06-16 06:01] LABS: Albumin 3.7 g/dL (3.4-5.0); Bilirubin Total 0.9 mg/dL (0.2-1.0); Potassium 3.8 mmol/L (3.5-5.1); Protein, Total 7.3 g/dL (6.4-8.2); Thyroid Stimulating Hormone 0.412 uIU/mL (0.360-3.740)
[2021-06-16] MEDS: D5 0.45 NS 1,000 ML IV SCH ×3 (07:20→20:40)
[2021-06-16] MEDS: THIAMINE HCL 100 MG TABLET PO SCH (08:45)
[2021-06-16] MEDS: chlordiazePOXIDE HCl 25 MG CAP PO SCH ×3 (08:47→21:00)
--- NOTE | 2021-06-16 08:47 | RAD REPORT ---
EXAM DESCRIPTION: CT - Head Brain Wo Cont - 06/16/2021 8:40 am CLINICAL HISTORY: alcohol abuse/withdraw, Mild confusion COMPARISON: No comparisons TECHNIQUE: Axial 5 mm thick images of the head were obtained without IV contrast. All CT scans are performed using dose optimization technique as appropriate and may include automated exposure control or mA/KV adjustment according to patient size. FINDINGS: No intracranial hemorrhage, mass, edema or shift of mid-line structures. No acute infarcti on changes seen. No abnormal extra-axial fluid collections. Ventricles are normal. Mastoid air cells and visualized portions of the paranasal sinuses are clear. No acute bony findings. IMPRESSION: Negative non-contrast CT head examination.
[2021-06-16] MEDS: lisinopriL 5 MG TAB PO SCH ×2 (08:48→21:00)
[2021-06-16] MEDS: METOPROLOL TAR 50 MG TAB PO SCH ×2 (08:48→21:00)
[2021-06-16] MEDS: CITALOPRAM 10 MG TABLET PO SCH (08:48)
[2021-06-16] MEDS ORDERED: lisinopriL 10 MG TAB PO SCH (09:00)
[2021-06-16] MEDS ORDERED: FOLIC ACID 1 MG TABLET PO SCH (09:00)
[2021-06-16] MEDS ORDERED: LORazepam 2 MG/ML VIAL IV ONE (09:27)
[2021-06-16 12:14] LABS: Hematocrit 28.1 % (39.6-49.0)
[2021-06-16] MEDS ORDERED: ZIPRASIDONE MESYLA 20 MG/VIAL IM ONE (16:16)
[2021-06-16] MEDS ORDERED: WATER FOR INJ,STERILE 10 ML IM PRN (16:16)
[2021-06-16] MEDS ORDERED: DIAZEPAM 10 MG/2 ML INJ SYRINGE IV ONE (16:30)
[2021-06-16] MEDS ORDERED: FLUMAZENIL 0.1 MG/ML (5 mL VIAL) IV PRN (17:54)
[2021-06-16] MEDS: LORazepam 2 MG/ML VIAL IV SCH (17:54)
[2021-06-16] MEDS ORDERED: D5 0.45 NS 1,000 ML IV ONE (19:08)
[2021-06-17] MEDS: PANTOPRAZOLE INJ 80 MG in NA CHLORIDE 0.9% 250 ML IV SCH ×4 (01:00→11:50)
[2021-06-17] MEDS: OCTREOTIDE 500 MCG in NA CHLORIDE 0.9% 500 ML IV SCH ×4 (01:00→11:50)
[2021-06-17 04:00] LABS: Absolute Lymphocytes (CBC) 1.2 K/uL (0.7-4.9); Basophils % 0.7 % (0-1.3); Hematocrit 24.7 % (39.6-49.0); Lymphocytes % 22.8 % (15.3-44.8); MPV 8.1 fL (7.6-11.3); RBC Red Blood Cell Count 3.44 M/uL (4.33-5.43)
[2021-06-17 04:08] LABS: ALT/SGPT 43 U/L (12-78); AST/SGOT 73 U/L (15-37); Albumin 3.5 g/dL (3.4-5.0); Alkaline Phosphatase 65 U/L (45-117); BUN Blood Urea Nitrogen 9 mg/dL (7-18); Bicarbonate 27 mmol/L (21-32); Bilirubin Total 0.7 mg/dL (0.2-1.0); Glucose Level 114 mg/dL (74-106); Magnesium 2.2 mg/dL (1.8-2.4); Potassium 3.3 mmol/L (3.5-5.1); Protein, Total 6.7 g/dL (6.4-8.2); Sodium Level 147 mmol/L (136-145)
[2021-06-17] MEDS: LORazepam 2 MG/ML VIAL IV SCH ×7 (04:36→21:57)
[2021-06-17] MEDS ORDERED: LORazepam 2 MG/ML VIAL ONE ×12 (04:47→23:05)
--- NOTE | 2021-06-17 06:12 | P.PN ---
Subjective Date of Service: 06/17/21 Primary Care Provider: [facility] Chief Complaint: Alcohol withdrawal Subjective: Other (Patient with increased sedation. Patient getting Ativan) Physical Examination - Vital Signs Temperature: 97.6 F Blood Pressure: 139/80 Pulse: 73 Respirations: 11 Pulse Ox (%): 96 Assessment & Plan Discharge Plan: Home Plan to discharge in: Greater than 2 days Physician Review Additional Text: COVID: negative X-ray: COMPARISON: No comparisons FINDINGS: Fourth metacarpal fracture with dorsal angulation. This involves the proximal diaphysis. No other fractures identified. The fracture has mild dorsal displacement. IMPRESSION: Mildly displaced and angulated fourth metacarpal fracture. Physical Exam: GENERAL: Increase sedation noted. Patient getting Ativan due to alcohol withdrawal. VITAL SIGNS: Reviewed HEENT: Neck supple LUNGS: Clear to auscultation. No crackles or wheezes are heard. HEART: Last sinus tachycardia noted at this time. ABDOMEN: Soft, nontender, and nondistended. Positive bowel sounds. No hepatosplenomegaly was noted. EXTREMITIES: Without any cyanosis, clubbing, rash, lesions or peripheral edema. NEUROLOGIC: Patient resting in bed SKIN: Normal color, turgor and temperature. No ulcerations or rashes noted. Impression: Alcohol abuse with delirium tremens Melena and acute on chronic anemia suspect upper GI bleed with underlying GERD Mildly displaced and angulated left fourth metacarpal fracture Chronic atrial fibrillation on chronic anticoagulation therapyEliquis Hypertension Depression Chronic pain Plan: Alcohol abuse with delirium tremens: Patient now in ICU. Continue with Ativan protocol along with withdrawal protocol. Patient better sedated at this time. Hold EGD. Continue with IV fluids, IV Protonix drip, IV Sandostatin. Continue to hold Eliquis. Patient will receive 1 unit of blood to maintain hemoglobin above 7.5. Will monitor closely. Continue to adjust Ativan. Melena and acute on chronic anemia suspect upper GI bleed with underlying GERD: Patient remains on Protonix drip and Sandostatin drip. Patient n.p.o. at this time for EGD this morning with GI. Continue to hold Eliquis. Patient will get 1 unit of blood. Maintain hemoglobin above 7.5. Mildly displaced and angulated left fourth metacarpal fracture: Splint in place. This can be further evaluated as an outpatient by orthopedics. Chronic atrial fibrillation on chronic anticoagulation therapyEliquis: Tachycardia improved. Continue metoprolol. Hypertension: Continue metoprolol 100 mg 1 pill twice daily and lisinopril. Depression: Continue Celexa 10 mg daily. Chronic pain: Continue with Suboxone 1 pill twice daily. Patient will need to use home medication. Code Status: Full Code DVT prophylaxis: SCD Advanced Care Planning-30 minutes: Home at discharge Time Spent Managing Pts Care (In Minutes): 55
[2021-06-17] MEDS: LORazepam 2 MG/ML VIAL IV PRN ×6 (07:12→22:40)
[2021-06-17] MEDS: chlordiazePOXIDE HCl 25 MG CAP PO SCH ×3 (08:39→20:43)
[2021-06-17] MEDS: lisinopriL 5 MG TAB PO SCH ×2 (08:42→20:42)
[2021-06-17] MEDS: METOPROLOL TAR 50 MG TAB PO SCH ×2 (08:42→20:41)
[2021-06-17] MEDS: FOLIC ACID 1 MG, MULTIVITAMINS INJ 10 ML, THIAMINE HCL 100 MG in NA CHLORIDE 0.9% 1,000 ML IV SCH (08:43)
[2021-06-17] MEDS ORDERED: chlordiazePOXIDE HCl 25 MG CAP ONE ×2 (08:58→13:42)
[2021-06-17] MEDS ORDERED: lisinopriL 5 MG TAB ONE ×2 (08:58→21:00)
[2021-06-17] MEDS ORDERED: METOPROLOL TAR 50 MG TAB ONE ×2 (08:58→21:00)
[2021-06-17] MEDS ORDERED: D5W 1,000 ML IV ONE ×2 (09:24→22:58)
[2021-06-17] MEDS: CITALOPRAM 10 MG TABLET PO SCH (09:32)
[2021-06-17] MEDS: D5W 1,000 ML IV SCH (09:32)
[2021-06-17] MEDS ORDERED: chlordiazePOXIDE HCl 5 MG CAP PO ONE (21:05)
[2021-06-17] MEDS: HALOPERIDOL LACT 5 MG/ML INJ IM PRN (22:40)
[2021-06-17] MEDS ORDERED: HALOPERIDOL LACT 5 MG/ML INJ ONE (23:06)
[2021-06-18] MEDS: PANTOPRAZOLE INJ 80 MG in NA CHLORIDE 0.9% 250 ML IV SCH ×4 (01:30→23:07)
[2021-06-18] MEDS: HALOPERIDOL LACT 5 MG/ML INJ IM PRN ×2 (01:45→06:10)
[2021-06-18] MEDS: LORazepam 2 MG/ML VIAL IV PRN (01:45)
[2021-06-18] MEDS: LORazepam 2 MG/ML VIAL IV SCH ×6 (01:54→22:33)
[2021-06-18] MEDS ORDERED: NA CHLORIDE 0.9% 250 ML ONE ×2 (01:56→09:25)
[2021-06-18] MEDS ORDERED: PANTOPRAZOLE 40 MG INJ ONE (01:56)
[2021-06-18] MEDS ORDERED: LORazepam 2 MG/ML VIAL ONE ×6 (02:08→23:31)
[2021-06-18] MEDS ORDERED: HALOPERIDOL LACT 5 MG/ML INJ ONE ×2 (02:08→06:36)
[2021-06-18] MEDS: OCTREOTIDE 500 MCG in NA CHLORIDE 0.9% 500 ML IV SCH ×4 (02:21→23:06)
[2021-06-18 05:48] LABS: Basophils % 0.6 % (0-1.3); Hematocrit 22.5 % (39.6-49.0); Lymphocytes % 21.7 % (15.3-44.8); MPV 8.2 fL (7.6-11.3); RBC Red Blood Cell Count 3.13 M/uL (4.33-5.43)
[2021-06-18 05:52] LABS: ALT/SGPT 45 U/L (12-78); AST/SGOT 76 U/L (15-37); Albumin 3.2 g/dL (3.4-5.0); Alkaline Phosphatase 62 U/L (45-117); BUN Blood Urea Nitrogen 4 mg/dL (7-18); Bicarbonate 25 mmol/L (21-32); Bilirubin Total 0.7 mg/dL (0.2-1.0); Glucose Level 115 mg/dL (74-106); Potassium 3.1 mmol/L (3.5-5.1); Protein, Total 6.4 g/dL (6.4-8.2); Sodium Level 145 mmol/L (136-145)
--- NOTE | 2021-06-18 06:17 | P.PN ---
Subjective Date of Service: 06/18/21 Primary Care Provider: [facility] Chief Complaint: Alcohol withdrawal Subjective: Other (Patient has been receiving Ativan to help with agitation. Agitation stable with medication) Physical Examination - Vital Signs Temperature: 98 F Blood Pressure: 134/66 Pulse: 74 Respirations: 18 Pulse Ox (%): 99 Assessment & Plan Discharge Plan: Home Plan to discharge in: Greater than 2 days Physician Review Additional Text: COVID: negative X-ray: COMPARISON: No comparisons FINDINGS: Fourth metacarpal fracture with dorsal angulation. This involves the proximal diaphysis. No other fractures identified. The fracture has mild dorsal displacement. IMPRESSION: Mildly displaced and angulated fourth metacarpal fracture. CT Head: COMPARISON: No comparisons TECHNIQUE: Axial 5 mm thick images of the head were obtained without IV contrast. All CT scans are performed using dose optimization technique as appropriate and may include automated exposure control or mA/KV adjustment according to patient size. FINDINGS: No intracranial hemorrhage, mass, edema or shift of mid-line structures. No acute infarction changes seen. No abnormal extra-axial fluid collections. Ventricles are normal. Mastoid air cells and visualized portions of the paranasal sinuses are clear. No acute bony findings. IMPRESSION: Negative non-contrast CT head examination. CXR: COMPARISON: Chest Single View dated 10/27/2019 FINDINGS: Portable technique limits examination quality. The lungs are grossly clear. The heart is normal in size. No displaced fractures. IMPRESSION: No acute intrathoracic process suspected. Physical Exam: GENERAL: Agitation improved with Ativan. Overall stable. VITAL SIGNS: Reviewed. Vital signs stable HEENT: Neck supple LUNGS: Clear to auscultation. No crackles or wheezes are heard. HEART: Normal sinus rhythm ABDOMEN: Soft, nontender, and nondistended. Positive bowel sounds. No hepatosplenomegaly was noted. EXTREMITIES: Without any cyanosis, clubbing, rash, lesions or peripheral edema. NEUROLOGIC: Patient resting in bed. Agitation stable with medication SKIN: Normal color, turgor and temperature. No ulcerations or rashes noted. Impression: Alcohol abuse with delirium tremens Melena and acute on chronic anemia suspect upper GI bleed with underlying GERD Mildly displaced and angulated left fourth metacarpal fracture Chronic atrial fibrillation on chronic anticoagulation therapyEliquis Hypertension Depression Chronic pain Hypernatremia Plan: Alcohol abuse with delirium tremens: Patient remained stable. Patient has been getting Ativan due to agitation. Agitation improved with medication. Continue with scheduled Librium and Ativan. Hemoglobin low this morning. Will need to verify if the patient has received transfusions. If not we will transfuse 2 units of blood to maintain hemoglobin above 7.5. Spoke with GI yesterday. No EGD at this time due to his agitation. Continue with IV fluids, IV Protonix drip, IV Sandostatin. Continue to hold Eliquis. We will continue to monitor closely. Melena and acute on chronic anemia suspect upper GI bleed with underlying GERD: Patient remains on Protonix drip and Sandostatin drip. Patient on clear liquid diet. Continue to hold Eliquis. Will transfuse 2 units of blood to maintain hemoglobin above 7.5. Mildly displaced and angulated left fourth metacarpal fracture: Patient took off splint. We will try to see if the splint can be replaced. This can be further evaluated as an outpatient by orthopedics. Chronic atrial fibrillation on chronic anticoagulation therapyEliquis: Normal sinus rhythm noted. Continue metoprolol. Hypertension: Continue metoprolol 100 mg 1 pill twice daily and lisinopril 5 mg 1 pill twice daily. Depression: Continue Celexa 10 mg daily. Chronic pain: Continue with Suboxone 1 pill twice daily. Patient will need to use home medication. Hypernatremia: Continue with D5W. Will adjust IV fluids once improved. Patient on clear liquid diet. Code Status: Full Code DVT prophylaxis: SCD Advanced Care Planning-30 minutes: Home at discharge Time Spent Managing Pts Care (In Minutes): 55
[2021-06-18] MEDS: FOLIC ACID 1 MG, MULTIVITAMINS INJ 10 ML, THIAMINE HCL 100 MG in NA CHLORIDE 0.9% 1,000 ML IV SCH (08:43)
[2021-06-18] MEDS: lisinopriL 5 MG TAB PO SCH ×2 (08:48→20:09)
[2021-06-18] MEDS: METOPROLOL TAR 50 MG TAB PO SCH ×2 (08:48→20:09)
[2021-06-18] MEDS: chlordiazePOXIDE HCl 25 MG CAP PO SCH ×3 (08:48→20:10)
[2021-06-18] MEDS: CITALOPRAM 10 MG TABLET PO SCH (08:49)
[2021-06-18] MEDS: ACETAMINOPHEN 500 MG TAB PO PRN (08:51)
[2021-06-18] MEDS: D5W 1,000 ML IV SCH ×3 (08:52→23:10)
[2021-06-18] MEDS ORDERED: METOPROLOL TAR 50 MG TAB ONE ×2 (09:11→21:07)
[2021-06-18] MEDS ORDERED: chlordiazePOXIDE HCl 25 MG CAP ONE ×3 (09:12→21:08)
[2021-06-18] MEDS ORDERED: lisinopriL 5 MG TAB ONE ×2 (09:12→21:07)
[2021-06-18] MEDS ORDERED: ACETAMINOPHEN 500 MG TAB ONE (09:17)
[2021-06-18] MEDS ORDERED: D5W 1,000 ML IV ONE (13:33)
[2021-06-18] MEDS ORDERED: FUROSEMIDE 20 MG/ 2ML VIAL IV ONE (13:39)
[2021-06-18 15:11] LABS: Hematocrit 28.5 % (39.6-49.0)
[2021-06-18] MEDS ORDERED: POTASSIUM CL SA 10 MEQ TAB PO ONE ×3 (17:40→21:07)
[2021-06-19] MEDS ORDERED: NA CHLORIDE 0.9% 0 ML ONE
[2021-06-19] MEDS ORDERED: OCTREOTIDE ACETATE 100 MCG/ML ONE (00:01)
[2021-06-19] MEDS ORDERED: D5W 1,000 ML IV ONE ×2 (00:09→12:05)
[2021-06-19] MEDS: LORazepam 2 MG/ML VIAL IV PRN ×4 (00:24→19:25)
[2021-06-19] MEDS ORDERED: LORazepam 2 MG/ML VIAL ONE ×8 (01:22→23:29)
[2021-06-19 03:57] LABS: Absolute Lymphocytes (CBC) 0.9 K/uL (0.7-4.9); Basophils % 0.7 % (0-1.3); Hematocrit 28.5 % (39.6-49.0); Lymphocytes % 15.5 % (15.3-44.8); MPV 8.1 fL (7.6-11.3); RBC Red Blood Cell Count 3.77 M/uL (4.33-5.43)
[2021-06-19 04:08] LABS: BUN Blood Urea Nitrogen 3 mg/dL (7-18); Bicarbonate 26 mmol/L (21-32); Glucose Level 104 mg/dL (74-106); Potassium 3.6 mmol/L (3.5-5.1); Sodium Level 144 mmol/L (136-145)
[2021-06-19] MEDS: LORazepam 2 MG/ML VIAL IV SCH ×4 (04:23→22:34)
[2021-06-19] MEDS ORDERED: POTASSIUM CL SA 10 MEQ TAB PO ONE ×2 (04:28→05:57)
--- NOTE | 2021-06-19 06:06 | P.PN ---
Subjective Date of Service: 06/19/21 Primary Care Provider: [facility] Chief Complaint: Alcohol withdrawal Subjective: Other (Overall stable. Patient receiving Librium and Ativan.) Physical Examination - Vital Signs Temperature: 98.3 F Blood Pressure: 151/99 Pulse: 71 Respirations: 16 Pulse Ox (%): 94 Assessment & Plan Discharge Plan: Home Plan to discharge in: Greater than 2 days Physician Review Additional Text: COVID: negative X-ray: COMPARISON: No comparisons FINDINGS: Fourth metacarpal fracture with dorsal angulation. This involves the proximal diaphysis. No other fractures identified. The fracture has mild dorsal displacement. IMPRESSION: Mildly displaced and angulated fourth metacarpal fracture. CT Head: COMPARISON: No comparisons TECHNIQUE: Axial 5 mm thick images of the head were obtained without IV contrast. All CT scans are performed using dose optimization technique as appropriate and may include automated exposure control or mA/KV adjustment according to patient size. FINDINGS: No intracranial hemorrhage, mass, edema or shift of mid-line structures. No acute infarction changes seen. No abnormal extra-axial fluid collections. Ventricles are normal. Mastoid air cells and visualized portions of the paranasal sinuses are clear. No acute bony findings. IMPRESSION: Negative non-contrast CT head examination. CXR: COMPARISON: Chest Single View dated 10/27/2019 FINDINGS: Portable technique limits examination quality. The lungs are grossly clear. The heart is normal in size. No displaced fractures. IMPRESSION: No acute intrathoracic process suspected. Physical Exam: GENERAL: Agitation improved with Ativan and Librium. Overall stable. VITAL SIGNS: Reviewed. Vital signs stable HEENT: Neck supple LUNGS: Clear to auscultation. No crackles or wheezes are heard. HEART: Normal sinus rhythm ABDOMEN: Soft, nontender, and nondistended. Positive bowel sounds. No hepatosplenomegaly was noted. EXTREMITIES: Without any cyanosis, clubbing, rash, lesions or peripheral edema. NEUROLOGIC: Patient resting in bed. Agitation stable with medication SKIN: Normal color, turgor and temperature. No ulcerations or rashes noted. Impression: Alcohol abuse with delirium tremens Melena and acute on chronic anemia suspect upper GI bleed with underlying GERD Mildly displaced and angulated left fourth metacarpal fracture Chronic atrial fibrillation on chronic anticoagulation therapyEliquis Hypertension Depression Chronic pain Hypernatremia Plan: Alcohol abuse with delirium tremens: Patient remained stable. Currently improved. Patient receiving scheduled Librium. Still requiring moderate to high doses of Ativan. Continue to wean off. Patient received 2 units of blood yesterday. Hemoglobin now 8.7. Patient remains on IV Protonix drip and IV Sandostatin. GI was not able to do EGD late last week due to his agitation. I anticipate that EGD will be held until patient is more clinically stable. No melena noted. Will maintain hemoglobin above 7.5. We'll continue to monitor closely. Patient previously on Eliquis. This remains on hold. Patient on SCD. Will discuss with . I will turn the service over to the hospitalist team tomorrow. I will go over the plan of care with him. Melena and acute on chronic anemia suspect upper GI bleed with underlying GERD: Patient remains on Protonix and Sandostatin IV drip. No melena noted. Patient on clear liquid diet. Continue to hold Eliquis. Maintain hemoglobin above 7.5. Mildly displaced and angulated left fourth metacarpal fracture: Patient took off splint. We will try to see if the splint can be replaced. This can be further evaluated as an outpatient by orthopedics. Chronic atrial fibrillation on chronic anticoagulation therapyEliquis: Normal sinus rhythm noted. Continue metoprolol. Eliquis remains on hold due to upper GI bleed. Hypertension: Continue metoprolol 100 mg 1 pill twice daily and lisinopril 5 mg 1 pill twice daily. Depression: Continue Celexa 10 mg daily. Chronic pain: Continue with Suboxone 1 pill twice daily. Patient will need to use home medication. Hypernatremia: Continue with D5W. Will adjust IV fluids once improved. Patient on clear liquid diet. Will consider advancement of diet if improved. Code Status: Full Code DVT prophylaxis: SCD Advanced Care Planning-30 minutes: Home at discharge Time Spent Managing Pts Care (In Minutes): 55
[2021-06-19] MEDS: D5W 1,000 ML IV SCH (08:28)
[2021-06-19] MEDS: ACETAMINOPHEN 500 MG TAB PO PRN (09:11)
[2021-06-19] MEDS: chlordiazePOXIDE HCl 25 MG CAP PO SCH ×3 (09:30→20:20)
[2021-06-19] MEDS: lisinopriL 5 MG TAB PO SCH ×2 (09:30→20:19)
[2021-06-19] MEDS: METOPROLOL TAR 50 MG TAB PO SCH ×2 (09:30→20:20)
[2021-06-19] MEDS: CITALOPRAM 10 MG TABLET PO SCH (09:31)
[2021-06-19] MEDS: FOLIC ACID 1 MG, MULTIVITAMINS INJ 10 ML, THIAMINE HCL 100 MG in NA CHLORIDE 0.9% 1,000 ML IV SCH (09:34)
[2021-06-19] MEDS: PANTOPRAZOLE INJ 80 MG in NA CHLORIDE 0.9% 250 ML IV SCH ×2 (09:34→20:18)
[2021-06-19] MEDS ORDERED: METOPROLOL TAR 50 MG TAB ONE ×2 (09:39→21:03)
[2021-06-19] MEDS ORDERED: chlordiazePOXIDE HCl 25 MG CAP ONE ×3 (09:39→21:03)
[2021-06-19] MEDS ORDERED: lisinopriL 5 MG TAB ONE ×2 (09:39→21:04)
[2021-06-19] MEDS ORDERED: ACETAMINOPHEN 500 MG TAB ONE (10:10)
[2021-06-19] MEDS: OCTREOTIDE 500 MCG in NA CHLORIDE 0.9% 500 ML IV SCH ×2 (11:07→20:19)
[2021-06-20] MEDS: ACETAMINOPHEN 500 MG TAB PO PRN ×4 (00:52→20:13)
[2021-06-20] MEDS ORDERED: ACETAMINOPHEN 500 MG TAB ONE ×4 (01:50→21:00)
[2021-06-20] MEDS: LORazepam 2 MG/ML VIAL IV PRN ×3 (01:53→17:10)
[2021-06-20] MEDS ORDERED: LORazepam 2 MG/ML VIAL ONE ×3 (02:50→18:00)
[2021-06-20] MEDS: D5W 1,000 ML IV SCH (04:07)
[2021-06-20] MEDS ORDERED: D5W 1,000 ML IV ONE (05:05)
[2021-06-20 05:46] LABS: BUN Blood Urea Nitrogen 1 mg/dL (7-18); Bicarbonate 24 mmol/L (21-32); Glucose Level 309 mg/dL (74-106); Sodium Level 139 mmol/L (136-145)
[2021-06-20 05:55] LABS: Potassium 2.8 mmol/L (3.5-5.1)
[2021-06-20] MEDS: KCL 20 MEQ/100 mL IVPB 20 MEQ/100 ML BAG IV SCH ×3 (06:07→11:26)
[2021-06-20] MEDS ORDERED: NA CHLORIDE 0.9% 250 ML ONE (06:23)
[2021-06-20] MEDS ORDERED: PANTOPRAZOLE 40 MG INJ ONE (06:23)
[2021-06-20] MEDS ORDERED: KCL 20 MEQ/100 mL IVPB 20 MEQ/100 ML BAG IV ONE ×3 (06:58→12:24)
[2021-06-20] MEDS: CITALOPRAM 10 MG TABLET PO SCH (08:41)
[2021-06-20] MEDS: lisinopriL 5 MG TAB PO SCH ×2 (08:41→20:14)
[2021-06-20] MEDS: METOPROLOL TAR 50 MG TAB PO SCH ×2 (08:41→20:14)
[2021-06-20] MEDS ORDERED: METOPROLOL TAR 50 MG TAB ONE ×2 (08:52→21:00)
[2021-06-20] MEDS ORDERED: lisinopriL 5 MG TAB ONE ×2 (08:52→21:00)
[2021-06-20] MEDS: FOLIC ACID 1 MG, MULTIVITAMINS INJ 10 ML, THIAMINE HCL 100 MG in NA CHLORIDE 0.9% 1,000 ML IV SCH (09:00)
[2021-06-20] MEDS: OCTREOTIDE 500 MCG in NA CHLORIDE 0.9% 500 ML IV SCH ×2 (09:00→22:01)
[2021-06-20] MEDS: PANTOPRAZOLE INJ 80 MG in NA CHLORIDE 0.9% 250 ML IV SCH ×2 (09:01→19:00)
[2021-06-20] MEDS: chlordiazePOXIDE HCl 25 MG CAP PO SCH ×3 (10:33→20:13)
[2021-06-20] MEDS ORDERED: chlordiazePOXIDE HCl 25 MG CAP ONE ×3 (11:33→21:00)
[2021-06-21] MEDS: ACETAMINOPHEN 500 MG TAB PO PRN ×2 (04:15→11:54)
[2021-06-21] MEDS: PANTOPRAZOLE INJ 80 MG in NA CHLORIDE 0.9% 250 ML IV SCH (05:00)
[2021-06-21 05:01] LABS: BUN Blood Urea Nitrogen 3 mg/dL (7-18); Bicarbonate 26 mmol/L (21-32); Glucose Level 101 mg/dL (74-106); Potassium 3.4 mmol/L (3.5-5.1); Sodium Level 144 mmol/L (136-145)
[2021-06-21] MEDS ORDERED: ACETAMINOPHEN 500 MG TAB ONE ×2 (05:11→12:52)
[2021-06-21] MEDS ORDERED: POTASSIUM CL SA 10 MEQ TAB PO ONE ×2 (05:27→06:30)
[2021-06-21] MEDS: D5W 1,000 ML IV SCH (05:32)
[2021-06-21] MEDS ORDERED: D5W 1,000 ML IV ONE (06:17)
[2021-06-21] MEDS: CITALOPRAM 10 MG TABLET PO SCH (09:02)
[2021-06-21] MEDS: lisinopriL 5 MG TAB PO SCH (09:02)
[2021-06-21] MEDS: METOPROLOL TAR 50 MG TAB PO SCH (09:02)
[2021-06-21] MEDS: FOLIC ACID 1 MG, MULTIVITAMINS INJ 10 ML, THIAMINE HCL 100 MG in NA CHLORIDE 0.9% 1,000 ML IV SCH (09:02)
[2021-06-21] MEDS: chlordiazePOXIDE HCl 25 MG CAP PO SCH ×2 (09:02→14:09)
[2021-06-21] MEDS ORDERED: METOPROLOL TAR 50 MG TAB ONE (10:00)
[2021-06-21] MEDS ORDERED: lisinopriL 5 MG TAB ONE (10:00)
[2021-06-21] MEDS ORDERED: chlordiazePOXIDE HCl 25 MG CAP ONE ×2 (10:00→15:08)
[2021-06-21 12:29] VITALS: TEMP 98
[2021-06-21 12:30] VITALS: BP 145/75
[2021-06-21 14:14] VITALS: O2SAT 98
== END 2021-06-21 16:15 | disposition home or self-care (01) | DRG 897 ==
LOC: ER 09:50 → ERHOLD 13:01 → 2ND 17:19 → ERHOLD 06-16 17:00
PROVIDERS: ADMIT Family Medicine; ATTEND Hospitalist
PROC: 30233N1 Transfusion of Nonautologous Red Blood Cells into Peripheral Vein, Percutaneous Approach (ICD-10-PCS; principal; 2021-06-15)
DX: F10.131 Alcohol abuse with withdrawal delirium (principal); K92.1 Melena; F10.151 Alcohol abuse with alcohol-induced psychotic disorder with hallucinations; I48.20 Chronic atrial fibrillation, unspecified; E87.0 Hyperosmolality and hypernatremia; I10 Essential (primary) hypertension; G89.29 Other chronic pain; M54.9 Dorsalgia, unspecified; F32.A Depression, unspecified; K21.9 Gastro-esophageal reflux disease without esophagitis; D64.9 Anemia, unspecified; S62.305A Unspecified fracture of fourth metacarpal bone, left hand, initial encounter for closed fracture; Z79.899 Other long term (current) drug therapy; Z56.0 Unemployment, unspecified; Z79.01 Long term (current) use of anticoagulants; Z20.822 Contact with and (suspected) exposure to COVID-19
CPT/HCPCS: 36415; 70450; 71045; 80048; 80053; 80076; 80320; 81003; 83690; 83735; 84132; 84439; 84443; 85014; 85018; 85025; 85610; 86850; 86900; 86901; 93005; 94010; 96361; 96374; 96375; 97112; 97116; 97161; 99285; C9113; J0360; J1630; J1940; J2354; J3360; J3411; J3480; J3486; J7030; J7040; J7050; J7799; P9016; U0003

== ENCOUNTER 2021-08-11 05:02 | Inpatient (IN) | payer SELFPAY ==
--- OUTSIDE RECORDS SUMMARY | 2021-08-11 05:05 | XMS REPORT | Continuity of Care Document ---
:[address] [facility] t Address [address] [place] [address] Care Team Providers Name Role Phone Miguel BOTELLO Attending Clinician Doctor Unassigned, Name Attending Clinician Unavailable Problems This patient has no known problems. Allergies, Adverse Reactions, Alerts This patient has no known allergies or adverse reactions. Social History Social Habit Start Date Stop Date Quantity Comments Source Sex Assigned At [facility] Alcohol intake 2019-05-02 2019-05-02 [facility] 00:00:00 00:00:00 [facility] Smoking Status Start Date Stop Date Source Unknown if ever smoked [facility] Never smoker [facility] Medications Ordered Filled Start Stop Current Ordering Indication Dosage Frequency Signature Comments Components Source Medication Medication Date Date Medication? Clinician (SIG) Name Name digoxin 125 2020-0 Yes 125ug Take 1 Uni vers mcg (0.125 2-01 tablet by ity of mg) tablet 00:00: mouth [place] 00 daily. [facility] call office to discuss options for lab work [phone] digoxin 125 2020-0 Yes 125ug Take 1 Uni vers mcg (0.125 2-01 tablet by ity of mg) tablet 00:00: mouth [place] 00 daily. Medical [facility] Branch call office to discuss options for lab work [phone] digoxin 125 2020-0 Yes 125ug Take 1 Uni vers mcg (0.125 2-01 tablet by ity of mg) tablet 00:00: mouth [place] 00 daily. [facility] call office to discuss options for lab work metoprolol 2018-08 Yes [id number] 100mg Take 1 Univers tartrate 1-08 tablet by ity of 100 mg 00:00: mouth 2 [place] tablet 00 (two) Medical times Branch daily. metoprolol 2018-08 Yes [id number] 100mg Take 1 Univers tartrate 1-08 tablet by ity of 100 mg 00:00: mouth 2 [place] tablet 00 (two) Medical times Branch daily. metoprolol 2018-08 Yes [id number] 100mg Take 1 Univers tartrate 1-08 tablet by ity of 100 mg 00:00: mouth 2 [place] tablet 00 (two) Medical times Branch daily. metoprolol 2018-08 Yes [id number] 100mg Take 1 Univers tartrate 1-08 tablet by ity of 100 mg 00:00: mouth 2 [place] tablet 00 (two) Medical times Branch daily. digoxin 125 2018-08 Yes 125ug Take 1 Uni vers mcg (0.125 0-18 tablet by ity of mg) tablet 00:00: mouth [place] 00 daily. Medical Branch digoxin 125 2018-08 2020- No 125ug Take 1 Un anna mcg (0.125 0-18 02-01 tablet by ity of mg) tablet 00:00: 00:00 mouth [place] 00 :00 daily. Medical Branch metoprolol 2019- No 75mg Take 75 mg Univers tartrate 25 05-02 by mouth 2 i ty of mg tablet 13:55: 00:00 (two) [place] 42 :00 times Medical daily. Branch diltiazem 2019- No 180mg Take 180 Un anna 180 mg 24 05-02- mg by ity of hr tablet 13:55: 00:00 mouth [place] 42 :00 daily. Medical Branch metoprolol 2019- No 75mg Take 75 mg Univers tartrate 25 05-02 by mouth 2 i ty of mg tablet 13:55: 00:00 (two) [place] 42 :00 times Medical daily. Branch diltiazem 2019- No 180mg Take 180 Un anna 180 mg 24 05-02-13 mg by ity of hr tablet 13:55: 00:00 mouth [place] 42 :00 daily. Medical Branch aspirin 81 2019- No 81mg Take 81 mg Univers mg chewable 05-02 by mouth ity of tablet 13:47: 00:00 daily. [place] 32 :00 Medical Branch aspirin 81 2019- No 81mg Take 81 mg Univers mg chewable 05-02 by mouth ity of tablet 13:47: 00:00 daily. [place] 32 :00 Medical Branch acetaminoph Yes 500mg Take 500 U nivers en/diphenhy 9-13 mg by ity of dramine 13:33: mouth as [place] (TYLENOL PM 12 needed. Medic al ORAL) Branch acetaminoph Yes Take by Un anna en (TYLENOL 9-13 mouth as ity of EXTRA 13:33: needed [place] STRENGTH 12 (headache Medica l ORAL) relief). Branch acetaminoph Yes 500mg Take 500 U nivers en/diphenhy 9-13 mg by ity of dramine 13:33: mouth as [place] (TYLENOL PM 12 needed. Medic al ORAL) Branch acetaminoph Yes Take by Un anna en (TYLENOL 9-13 mouth as ity of EXTRA 13:33: needed [place] STRENGTH 12 (headache Medica l ORAL) relief). Branch acetaminoph Yes 500mg Take 500 U nivers en/diphenhy 9-13 mg by ity of dramine 13:33: mouth as [place] (TYLENOL PM 12 needed. Medic al ORAL) Branch acetaminoph Yes Take by Un anna en (TYLENOL 9-13 mouth as ity of EXTRA 13:33: needed [place] STRENGTH 12 (headache Medica l ORAL) relief). Branch acetaminoph Yes 500mg Take 500 U nivers en/diphenhy 9-13 mg by ity of dramine 13:33: mouth as [place] (TYLENOL PM 12 needed. Medic al ORAL) Branch acetaminoph Yes Take by Un anna en (TYLENOL 9-13 mouth as ity of EXTRA 13:33: needed [place] STRENGTH 12 (headache Medica l ORAL) relief). Branch acetaminoph Yes 500mg Take 500 U nivers en/diphenhy 9-13 mg by ity of dramine 13:33: mouth as [place] (TYLENOL PM 12 needed. Medic al ORAL) Branch acetaminoph Yes Take by Un anna en (TYLENOL 9-13 mouth as ity of EXTRA 13:33: needed [place] STRENGTH 12 (headache Medica l ORAL) relief). Branch acetaminoph Yes 500mg Take 500 U nivers en/diphenhy 9-13 mg by ity of dramine 13:33: mouth as [place] (TYLENOL PM 12 needed. Medic al ORAL) Branch acetaminoph 2019-0 Yes Take by Un anna en (TYLENOL 9-13 mouth as ity of EXTRA 13:33: needed [place] STRENGTH 12 (headache Medica l ORAL) relief). Branch acetaminoph 2019-0 Yes 500mg Take 500 U nivers en/diphenhy 9-13 mg by ity of dramine 13:33: mouth as [place] (TYLENOL PM 12 needed. Medic al ORAL) Branch acetaminoph 2019-0 Yes Take by Un anna en (TYLENOL 9-13 mouth as ity of EXTRA 13:33: needed [place] STRENGTH 12 (headache Medica l ORAL) relief). Branch acetaminoph 2019-0 Yes 500mg Take 500 U nivers en/diphenhy 9-13 mg by ity of dramine 13:33: mouth as [place] (TYLENOL PM 12 needed. Medic al ORAL) Branch acetaminoph 2019-0 Yes Take by Un anna en (TYLENOL 9-13 mouth as ity of EXTRA 13:33: needed [place] STRENGTH 12 (headache Medica l ORAL) relief). Branch apixaban 2019-0 Yes 5mg Take 5 mg Univ ers (ELIQUIS) 5 9-13 by mouth 2 it y of mg tablet 13:30: (two) [place] 19 times Medical daily. Branch apixaban 2019-0 Yes 5mg Take 5 mg Univ ers (ELIQUIS) 5 9-13 by mouth 2 it y of mg tablet 13:30: (two) [place] 19 times Medical daily. Branch apixaban 2019-0 Yes 5mg Take 5 mg Univ ers (ELIQUIS) 5 9-13 by mouth 2 it y of mg tablet 13:30: (two) [place] 19 times Medical daily. Branch apixaban 2019-0 Yes 5mg Take 5 mg Univ ers (ELIQUIS) 5 9-13 by mouth 2 it y of mg tablet 13:30: (two) [place] 19 times Medical daily. Branch apixaban 2019-0 Yes 5mg Take 5 mg Univ ers (ELIQUIS) 5 9-13 by mouth 2 it y of mg tablet 13:30: (two) [place] 19 times Medical daily. Branch apixaban 2019-0 Yes 5mg Take 5 mg Univ ers (ELIQUIS) 5 9-13 by mouth 2 it y of mg tablet 13:30: (two) [place] 19 times Medical daily. Branch apixaban Yes 5mg Take 5 mg Univ ers (ELIQUIS) 5 9-13 by mouth 2 it y of mg tablet 13:30: (two) [place] 19 times Medical daily. Branch apixaban Yes 5mg Take 5 mg Univ ers (ELIQUIS) 5 9-13 by mouth 2 it y of mg tablet 13:30: (two) [place] 19 times Medical daily. Branch metoprolol Yes [id number] 75mg Take 3 Univers tartrate 25 9-13 tablets by it y of mg tablet 00:00: mouth 2 00 (two) Medical times Branch daily. diltiazem Yes [id number] 180mg Take 1 Univers 180 mg 24 9-13 tablet by ity o f hr tablet 00:00: mouth [place] 00 daily. Medical Branch metoprolol Yes [id number] 75mg Take 3 Univers tartrate 25 9-13 tablets by it y of mg tablet 00:00: mouth 2 00 (two) Medical times Branch daily. diltiazem Yes [id number] 180mg Take 1 Univers 180 mg 24 9-13 tablet by ity o f hr tablet 00:00: mouth [place] 00 daily. Medical Branch metoprolol Yes [id number] 75mg Take 3 Univers tartrate 25 9-13 tablets by it y of mg tablet 00:00: mouth 2 00 (two) Medical times Branch daily. diltiazem Yes [id number] 180mg Take 1 Univers 180 mg 24 9-13 tablet by ity o f hr tablet 00:00: mouth [place] 00 daily. Medical Branch metoprolol Yes [id number] 75mg Take 3 Univers tartrate 25 9-13 tablets by it y of mg tablet 00:00: mouth 2 00 (two) Medical times Branch daily. diltiazem 2018- Yes [id number] 180mg Take 1 Univers 180 mg 24 9-13 tablet by ity o f hr tablet 00:00: mouth [place] 00 daily. Medical Branch No known No Univers medications [facility] Vital Signs Vital Name Observation Time Observation Value Comments Source Systolic blood 2019-05-02 13:33:00 144 mm[Hg] Univer sity of pressure [place] [facility] Diastolic blood 2019-05-02 13:33:00 96 mm[Hg] Unive rsity of pressure [facility] Heart rate 2019-05-02 13:33:00 80 /min [facility] Respiratory rate 2019-05-02 13:19:00 20 /min Univ ersity of [facility] Body height 2019-05-02 13:19:00 188 cm [facility] Body weight 2019-05-02 13:19:00 92.262 kg [facility] BMI 2019-05-02 13:19:00 26.12 kg/m2 [facility] Oxygen saturation in 2019-05-02 13:19:00 98 /min [facility] Arterial blood by [facility] Pulse oximetry [place] Procedures Procedure Date / Time Performing Clinician Source Performed EXTERNAL PROVIDER - ADC 2019-10-13 06:01:00 Doctor Unassigned, N o [facility] CARDIOLOGY [facility] AUTHORIZATION TO RELEASE 2019-05-02 05:01:00 Doctor Unassigned, No [facility] PHI TO [facility] HOSPITAL ADMISSION 2019 05:01:00 Doctor Unassigned, No Uni [facility] Encounters Start End Encounter Admission Attending Care Care Encounter Source Date/Time Date/Time Type Type Clinicians Facility Department ID 2019-10-13 2019-10-13 Telephone Miguel [facility] [id number] Univers 00:00:00 00:00:00 Jessica Holland [id number] ity of [id number] [phone] Co dical nal [address] [place] [facility] 2019-10-13 2019-10-13 Orders Doctor SALCIDO [id number] Univers 00:00:00 00:00:00 Only Unassigned, OMEGA [id number] ity of [facility] [id number] Jose Cruz as [phone] [facility] 009 Branch 2019-09-18 2019-09-18 Refill Miguel [facility] [id number] Univers 00:00:00 00:00:00 Jessica Holland [id number] [place]y [id number] [phone] [address] 2019-09-01 2019-09-01 Telephone [facility] [id number] Univers 00:00:00 00:00:00 Jessica Holland [id number] [id number] [phone] [address] 2019-05-05 2019-05-05 Telephone [facility] [id number] Univers 00:00:00 00:00:00 [facility] [id number] [place] [id number] [place] [phone] [facility] Primary & 059 Branch Specialty Care 2019-05-02 2019-05-02 Office [facility] [id number] Univers 07:49:15 09:00:59 Visit Lennycris oHlland [id number] ity [place] [id number] [phone] [address] 2019-05-02 2019-05-02 Orders Doctor OMARI [id number] Univers 00:00:00 00:00:00 Only Unassigned, [place]ME[place] [id number] ity of [facility] [id number] Jose Cruz as [phone] [facility] 009 Branch 2019 2019 Orders Doctor OMARI [id number] Univers 00:00:00 00:00:00 Only Unassigned, OME[place] [id number] ity of [facility] [id number] Jose Cruz as [phone] [place] [address] Branch Results This patient has no known results.
[2021-08-11] MEDS ORDERED: THIAMINE 200 MG/2 ML INJ ONE (05:19)
[2021-08-11] MEDS ORDERED: DIAZEPAM 10 MG/2 ML INJ SYRINGE ONE ×3 (05:19→06:49)
[2021-08-11] MEDS ORDERED: MULTIVITAMINS 10 ML VIAL (INJ) IV ONE (05:20)
[2021-08-11] MEDS ORDERED: FOLIC ACID 5 MG/ML VIAL ONE (05:22)
[2021-08-11] MEDS ORDERED: NA CHLORIDE 0.9% 2,000 ML ONE (05:22)
[2021-08-11 05:38] LABS: Absolute Lymphocytes (CBC) 0.8 K/uL (0.7-4.9); Hematocrit 35.9 % (39.6-49.0); Lymphocytes % 5.4 % (15.3-44.8); MPV 9.3 fL (7.6-11.3); RBC Red Blood Cell Count 5.12 M/uL (4.33-5.43)
[2021-08-11] MEDS ORDERED: ONDANSETRON 4 MG/2 ML VIAL ONE ×3 (05:40→23:50)
[2021-08-11 05:42] LABS: Protime INR 1.09
[2021-08-11 05:53] LABS: Albumin 3.9 g/dL (3.4-5.0); Bilirubin Direct 0.6 mg/dL (0-0.2); Bilirubin Total 1.2 mg/dL (0.2-1.0); Protein, Total 7.9 g/dL (6.4-8.2)
[2021-08-11 05:55] LABS: Potassium 2.3 mmol/L (3.5-5.1)
[2021-08-11] MEDS ORDERED: KCL 20 MEQ/100 mL IVPB 100 ML IV ONE (05:57)
[2021-08-11 06:29] LABS: Anisocytosis SLIGHT; Blood Morphology Comment NOTED (NOT SEEN); Hypochromasia 1+; Platelet Estimate ADEQ; Platelets, Giant F
[2021-08-11] MEDS ORDERED: NA CHLORIDE 0.9% 1,000 ML ONE (06:49)
--- NOTE | 2021-08-11 07:36 | RAD REPORT ---
EXAM DESCRIPTION: CT - Head C Spine Cap Albina Guevara - 08/11/2021 7:22 am CLINICAL HISTORY: fall, on eliquis, head/back pain COMPARISON: Foot Right 3 View dated 08/11/2021 TECHNIQUE: CT head without contrast. CT cervical spine without contrast with coronal and sagittal reformatted images. CT chest, abdomen and pelvis with coronal and sagittal reformatted images of the spine. All CT scans are performed using dose optimization technique as appropriate and may include automated exposure control or mA/KV adjustment according to patient size. FINDINGS: CT HEAD WITHOUT CONTRAST: No intracranial hemorrhage, hydrocephalus or extra-axial fluid collection. No acute large vascular te rritory infarct. The paranasal sinuses and mastoids are clear. The calvarium is intact. CT CERVICAL SPINE WITHOUT CONTRAST: No fracture or subluxation. The prevertebral soft tissues are normal in thickness.Reversal of the normal cervical lordosis. This may be related to presence of a C-collar. CT CHEST, ABDOMEN, PELVIS: Thorax: Chest Wall: No abnormal mass Lungs: No acute abnormality. Pleura: No effusions or pneumothorax. Adelia/Mediastinum: No lymphadenopathy. Aorta/Pulmonary Arteries: Unremarkable Heart: Normal size. Abdomen/Pelvis: Liver: Hepatic steatosis. Biliary: No biliary ductal dilatation. Stomach: No significant focal abnormality. Duodenum: No significant focal abnormality. Pancreas: No significant abnormality. Spleen: No significant abnormality. Adrenal: No suspicious lesions. Kidney/ureter: No hydronephrosis. Punctate stone in the right kidney. Too small to characterize and/o r benign appearing renal lesions are noted. Retroperitoneum: No retroperitoneal adenopathy. Vascular: No aneurysm. Bowel: No significant focal abnormality. Peritoneum: No ascites or free air. Bladder: Grossly unremarkable. Reproductive: No adnexal masses. Bones: No acute fracture. Other: n/a IMPRESSION: 1. No acute intracranial abnormality. 2. No cervical spine fracture or traumatic malalignment. 3. No evidence of significant trauma to the chest, abdomen, or pelvis.
--- NOTE | 2021-08-11 07:43 | RAD REPORT ---
EXAM DESCRIPTION: RAD - Foot Right 3 View - 08/11/2021 5:25 am CLINICAL HISTORY: PAIN COMPARISON: No comparisons FINDINGS: No acute fracture. No malalignment. Advanced degenerative changes are present at the first MTP. IMPRESSION: No acute osseous abnormality involving the right foot.
--- NOTE | 2021-08-11 08:13 | ER ---
Nurse's Notes [facility] Name: Tomás Sotomayor Age: 51 yrs Sex: Male : 1970 Arrival Date: 08/11/2021 Time: 05:05 Bed 18 Private MD: Diagnosis: Alcohol dependence with withdrawal, unspecified;Hypo-osmolality and hyponatremia;Hypokalemia;Alcohol abuse with intoxication delirium Presentation: 08/11 05:42 Chief complaint: EMS states: pt with ETOH withdrawals. last drink approximated at over kd3 12 hours ago. pt has had multiple falls in the past couple of days. trauma alert called upon arrival. Coronavirus screen: Vaccine status: Patient reports receiving the 2nd dose of the covid vaccine. At this time, the client does not indicate any symptoms associated with coronavirus-19. Ebola Screen: No symptoms or risks identified at this time. Initial Sepsis Screen: Does the patient meet any 2 criteria? No. Patient's initial sepsis screen is negative. Does the patient have a suspected source of infection? No. Patient's initial sepsis screen is negative. Risk Assessment: Do you want to hurt yourself or someone else? Patient reports no desire to harm self or others. Onset of symptoms was August 10, 2021. 05:42 Method Of Arrival: EMS: [facility] kd3 05:42 Acuity: STACIE 3 kd3 Triage Assessment: 05:47 General: Appears uncomfortable, tremors . Behavior is cooperative, anxious, restless. kd3 Pain: Complains of pain in lateral aspect of right calf, right calf, medial aspect of right calf and right caicedo. back pain. EENT: No deficits noted. Neuro: Level of Consciousness is awake, alert, obeys commands, Oriented to person, place, time, situation. Cardiovascular: Rhythm is atrial fibrillation. Respiratory: Airway is patent Respiratory effort is even, unlabored. GI: No deficits noted. : No deficits noted. Derm: No deficits noted. Musculoskeletal: No deficits noted. Historical: - Allergies: 05:47 No Known Allergies; kd3 - Home Meds: 05:47 Eliquis 2.5 mg Oral tab 1 tab 2 times per day [Active]; lisinopril Oral once daily kd3 [Active]; Suboxone sublingual once daily for opioid dependence [Active]; - PMHx: 05:47 AFIB; chroic back pain; Hypertension; kd3 - Immunization history:: Adult Immunizations up to date, Client reports receiving the 2nd dose of the Covid vaccine. - Social history:: Smoking status: Patient denies any tobacco usage or history of. Patient uses alcohol, on a daily basis. - Family history:: not pertinent. - Hospitalizations: : No recent hospitalization is reported. Screenin:53 Abuse screen: Denies threats or abuse. Denies injuries from another. Nutritional kd3 screening: No deficits noted. Tuberculosis screening: No symptoms or risk factors identified. Fall Risk Fall in past 12 months (25 points). IV access (20 points). Gait- Impaired (20 pts.). Assessment: 06:35 Reassessment: Patient and/or family updated on plan of care and expected duration. Pain kd3 level reassessed. improvement in tremors. 07:14 General: Appears to still be having tremors at this time. pt is awake and alert.. tw2 Behavior is calm, cooperative. Neuro: Level of Consciousness is awake, alert, obeys commands, Oriented to person, place. Cardiovascular: Patient's skin is warm and dry. Respiratory: Airway is patent Respiratory effort is even, unlabored, Respiratory pattern is regular, symmetrical. Derm: Bruising that is various stages of bruising noted to b/l arms. 08:15 Reassessment: Patient appears in no apparent distress at this time. Patient and/or tw2 family updated on plan of care and expected duration. Pain level reassessed. Patient is alert, oriented x 3, equal unlabored respirations, skin warm/dry/pink. 08:20 Reassessment: hospitalist Dr. Sawant at bedside at this time discussing admission tw2 process. Vital Signs: 05:42 BP 107 / 68; Pulse 112; Resp 21; kd3 06:36 BP 136 / 78; Pulse 118; Resp 16; kd3 07:03 Temp 99; Weight 99.79 kg; Height 6 ft. 2 in. (187.96 cm); kd3 07:14 BP 106 / 78; Pulse 130; Resp 22; Pulse Ox 97% on R/A; tw2 08:15 BP 145 / 70; Pulse 133; Resp 14; Pulse Ox 99% on R/A; tw2 07:03 Body Mass Index 28.25 (99.79 kg, 187.96 cm) kd3 ED Course: 05:05 Patient arrived in ED. mw2 05:11 Maynor Jones MD is Attending Physician. rn 05:15 Pamella Driver RN is Primary Nurse. kd3 05:24 XRAY Foot RIGHT 3 View In Process Unspecified. EDMS 05:40 Inserted saline lock: 20 gauge in left hand, using aseptic technique. lp1 05:47 Triage completed. kd3 05:47 Arm band placed on right wrist. kd3 05:53 Patient has correct armband on for positive identification. Bed in low position. Call kd3 light in reach. Side rails up X2. Seizure precautions initiated. quality assurance monitor final on. Pulse ox on. NIBP on. 07:00 Inserted saline lock: 20 gauge in right antecubital area, using aseptic technique. tw2 ,using aseptic technique. noted in place at shift chage. Patient admitted, IV remains in place. 07:22 CT Traumagram (Head C Spine CAP W Con) In Process Unspecified. EDMS 07:29 Primary Nurse role handed off by Pamella Driver RN tw2 07:29 Claribel Aguilera RN is Primary Nurse. tw2 08:08 Attending Physician role handed off by Maynor Jones MD kdr 08:08 Js Soto MD is Attending Physician. kdr 08:11 Bonifacio Sawant DO is Hospitalizing Provider. kdr 09:06 No provider procedures requiring assistance completed. tw2 20:30 Primary Nurse role handed off by Claribel Aguilera RN cs9 21:15 Yang Bonner RN is Primary Nurse. mr2 08/12 08:19 Primary Nurse role handed off by Yang Bonner RN eb Administered Medications: 08/11 05:38 Drug: NS 0.9% 1000 ml Route: IV; Rate: 1000 ml; Site: right antecubital; kd3 05:38 Drug: Banana Bag - (NS 0.9% 1000 ml, foLIC Acid 1 mg, Thiamine 100 mg, Multivitamin 1 kd3 amp) Route: IV; Rate: calculated rate; Site: right antecubital; 09:12 Follow up: IV Status: Infusion continued upon admission tw2 05:38 Drug: Valium (diazepam) 10 mg Route: IVP; Site: right antecubital; kd3 05:42 Drug: Zofran (Ondansetron) 4 mg Route: IVP; Site: right antecubital; kd3 06:06 Drug: Potassium Chloride 20 mEq Route: IV; Rate: calculated rate; Site: right kd3 antecubital; 08:22 Follow up: Response: No adverse reaction; IV Status: Completed infusion; IV Intake: [id number] 06:06 Drug: Valium (diazepam) 5 mg Route: IVP; Site: right antecubital; kd3 06:55 Drug: Valium (diazepam) 5 mg Route: IVP; Site: right antecubital; kd3 07:55 Follow up: Response: No adverse reaction; Marked relief of symptoms; Marked relief of tw2 symptoms. tremors are improved from 0700 06:56 Drug: NS 0.9% 1000 ml Route: IV; Rate: 1000 ml; Site: right antecubital; kd3 09:11 Follow up: Response: No adverse reaction; IV Status: Completed infusion; IV Intake: tw2 1000ml Intake: 08:22 IV: 50ml; Total: 50ml. tw2 09:11 IV: 1000ml; Total: 1050ml. tw2 Output: 07:34 Urine: 210ml (Voided); Total: 210ml. tw2 Outcome: 07:00 Admitted to ICU Other as ER-ICU HOLD tw2 07:00 critical 07:00 Instructed on the need for admit. 08:12 Decision to Hospitalize by Provider. kdr 08/12 14:07 Patient left the ED. eb Signatures: Dispatcher [employer] EDMS Js Soto MD MD kdr Nieto, Roman, MD MD rn Pena, Laura, RN RN lp1 Claribel Aguilera RN RN tw2 Roberta Cody 2 Марина Shipman Mike, RN RN 2 Barbra Nicole 9 Pamella Driver RN RN kd3
--- NOTE | 2021-08-11 08:13 | EDPHYS ---
Physician Documentation [facility] Name: Tomás Sotomayor Age: 51 yrs Sex: Male : 1970 Arrival Date: 08/11/2021 Time: 05:05 Bed 18 Private MD: ED Physician Js Soto HPI: 08/11 05:41 This 51 yrs old Male presents to ER via Unassigned with complaints of Alcohol rn withdrawal and fall. 05:41 Patient reports drinks heavily and daily, decided to try and cut down and for the last rn day or so has not taken any as much alcohol as he normally does. Reports since then has been feeling shaking and feeling like he is withdrawing. Has been admitted for alcohol withdrawal in the past. Denies any seizures but does report a few falls. From the falls he reports back pain and right foot pain. Patient is on Eliquis for A. fib. Reports nausea and vomiting that started after or concurrent with the withdrawal. Onset: The symptoms/episode began/occurred yesterday. Severity of symptoms: At their worst the symptoms were moderate in the emergency department the symptoms are unchanged. The patient has experienced similar episodes in the past. The patient has not recently seen a physician. Historical: - Allergies: 05:47 No Known Allergies; kd3 - Home Meds: 05:47 Eliquis 2.5 mg Oral tab 1 tab 2 times per day [Active]; lisinopril Oral once daily kd3 [Active]; Suboxone sublingual once daily for opioid dependence [Active]; - PMHx: 05:47 AFIB; chroic back pain; Hypertension; kd3 - Immunization history:: Adult Immunizations up to date, Client reports receiving the 2nd dose of the Covid vaccine. - Social history:: Smoking status: Patient denies any tobacco usage or history of. Patient uses alcohol, on a daily basis. - Family history:: not pertinent. - Hospitalizations: : No recent hospitalization is reported. ROS: 05:41 Constitutional: Negative for fever, chills, and weight loss, Eyes: Negative for injury, rn pain, redness, and discharge, Neck: Negative for injury, pain, and swelling, Cardiovascular: Positive for palpitations Respiratory: Negative for shortness of breath, cough, wheezing, and pleuritic chest pain, Abdomen/GI: Positive for nausea and vomiting Back: Positive for low back pain : Negative for injury, bleeding, discharge, and swelling, MS/Extremity: Negative for injury and deformity, Skin: Negative for injury, rash, and discoloration, Neuro: Negative for headache, numbness, tingling, and seizure. Exam: 05:40 ECG was reviewed by the Attending Physician. rn 05:41 Constitutional: Overweight patient with generalized shaking and tremors Head/Face: rn Normocephalic, atraumatic. Eyes: Periorbital areas with no swelling, redness, or edema. ENT: Dry mucous membranes with tongue fasciculations Cardiovascular: Tachycardic, regular Respiratory: Mild tachypnea. No retractions Abdomen/GI: Soft, non-tender Skin: Warm, dry, no cyanosis MS/ Extremity: Pulses equal, no cyanosis. Neurovascular intact. Full, normal range of motion. Equal circumference. Mild pain distal right foot on dorsum without open wounds or ecchymosis or deformity. Neuro: Awake and alert, GCS 15 Vital Signs: 05:42 BP 107 / 68; Pulse 112; Resp 21; kd3 06:36 BP 136 / 78; Pulse 118; Resp 16; kd3 07:03 Temp 99; Weight 99.79 kg; Height 6 ft. 2 in. (187.96 cm); kd3 07:14 BP 106 / 78; Pulse 130; Resp 22; Pulse Ox 97% on R/A; tw2 08:15 BP 145 / 70; Pulse 133; Resp 14; Pulse Ox 99% on R/A; tw2 07:03 Body Mass Index 28.25 (99.79 kg, 187.96 cm) kd3 MDM: 05:11 Patient medically screened. rn 08:11 Data reviewed: vital signs, nurses notes, lab test result(s), radiologic studies. kdr Counseling: I had a detailed discussion with the patient and/or guardian regarding: the historical points, exam findings, and any diagnostic results supporting the discharge/admit diagnosis, lab results, radiology results. Physician consultation: Bonifacio Sawant DO was called at 08:13, regarding admission, and will see patient in ED, shortly. 08/11 05:12 Order name: CBC with Diff; Complete Time: 06:37 rn 08/11 05:12 Order name: Basic Metabolic Panel; Complete Time: 06:00 rn 08/11 05:12 Order name: Protime (+inr); Complete Time: 05:52 rn 08/11 05:12 Order name: Ptt, Activated; Complete Time: 05:52 rn 08/11 05:12 Order name: LFT's; Complete Time: 06:00 rn 08/11 05:12 Order name: Lipase; Complete Time: 06:00 rn 08/11 06:19 Order name: COVID-19 SARS RT PCR (Document "Date of Onset" if Symptomatic); Complete lp1 Time: 08:08 08/11 06:29 Order name: Manual Differential; Complete Time: 06:37 EDMS 08/11 11:26 Order name: Basic Metabolic Panel EDMS 08/11 11:39 Order name: Procalcitonin EDMS 08/11 14:30 Order name: Urine Dipstick-Ancillary EDMS 08/11 17:29 Order name: Basic Metabolic Panel EDMS 08/12 03:52 Order name: Potassium EDMS 08/12 05:18 Order name: Gram Stain EDMS 08/11 05:12 Order name: CT Traumagram (Head C Spine CAP W Con); Complete Time: 08:08 rn 08/11 05:13 Order name: XRAY Foot RIGHT 3 View; Complete Time: 08:08 rn 08/12 05:18 Order name: Blood Culture EDMS 08/12 07:29 Order name: CBC with Automated Diff EDMS 08/12 08:04 Order name: Comprehensive Metabolic Panel EDMS 08/12 08:04 Order name: Magnesium EDMS 08/12 08:59 Order name: Gram Stain--Anaerobic Bottle EDMS 08/12 10:37 Order name: Hemoglobin EDMS 08/12 10:37 Order name: Hematocrit EDMS 08/11 05:12 Order name: Cardiac monitoring; Complete Time: 05:21 rn 08/11 05:12 Order name: Oxygen; Complete Time: 06:34 rn 08/11 05:12 Order name: IV Start; Complete Time: 05:21 rn 08/11 06:26 Order name: EKG Electrocardiogram EDMS EC:40 Rate is 138 beats/min. Rhythm is regular. Left axis deviation noted. QRS is positive in rn lead I and negative in lead aVF. [place] interval is normal. QRS interval is normal. QT interval is normal. No Q waves. T waves are Normal. No ST changes noted. Clinical impression: Sinus tachycardia. Interpreted by me. Reviewed by me. Administered Medications: 05:38 Drug: NS 0.9% 1000 ml Route: IV; Rate: 1000 ml; Site: right antecubital; kd3 05:38 Drug: Banana Bag - (NS 0.9% 1000 ml, foLIC Acid 1 mg, Thiamine 100 mg, Multivitamin 1 kd3 amp) Route: IV; Rate: calculated rate; Site: right antecubital; 09:12 Follow up: IV Status: Infusion continued upon admission tw2 05:38 Drug: Valium (diazepam) 10 mg Route: IVP; Site: right antecubital; kd3 05:42 Drug: Zofran (Ondansetron) 4 mg Route: IVP; Site: right antecubital; kd3 06:06 Drug: Potassium Chloride 20 mEq Route: IV; Rate: calculated rate; Site: right kd3 antecubital; 08:22 Follow up: Response: No adverse reaction; IV Status: Completed infusion; IV Intake: [id number] 06:06 Drug: Valium (diazepam) 5 mg Route: IVP; Site: right antecubital; kd3 06:55 Drug: Valium (diazepam) 5 mg Route: IVP; Site: right antecubital; kd3 07:55 Follow up: Response: No adverse reaction; Marked relief of symptoms; Marked relief of tw2 symptoms. tremors are improved from 0700 06:56 Drug: NS 0.9% 1000 ml Route: IV; Rate: 1000 ml; Site: right antecubital; kd3 09:11 Follow up: Response: No adverse reaction; IV Status: Completed infusion; IV Intake: tw2 1000ml Disposition Summary: 08/11/21 08:12 Hospitalization Ordered Hospitalization Status: Inpatient Admission kdr Provider: Bonifacio Sawant Condition: Serious kdr Problem: an acute exacerbation kdr Symptoms: have improved kdr Bed/Room Type: Standard kdr Location: [facility] ER HOLD(08/11/21 16:23) Room Assignment: ERHOLD-(08/11/21 16:23) ss Diagnosis - Alcohol dependence with withdrawal, unspecified kdr - Hypo-osmolality and hyponatremia kdr - Hypokalemia kdr - Alcohol abuse with intoxication delirium kdr Discharge Instructions: - Discharge Summary Sheet tw2 Forms: - Medication Reconciliation Form kdr - SBAR form tw2 Signatures: Dispatcher [employer] EDMS Js Soto MD MD [facility] Maynor Jones MD MD rn Mallika Shell RN RN ss Pamelal Driver RN RN kd3 Claribel Aguilera RN tw2 Corrections: (The following items were deleted from the chart) 08:12 Intensive Care Unit [facility] ss 16 08:12 [facility]
[2021-08-11] MEDS ORDERED: METOPROLOL TARTRATE 5 MG/5 ML INJ IV PRN (09:08)
[2021-08-11] MEDS ORDERED: HALOPERIDOL LACT 5 MG/ML INJ IM PRN (09:08)
[2021-08-11] MEDS ORDERED: LORazepam 2 MG/ML VIAL IV PRN (09:08)
[2021-08-11] MEDS ORDERED: SODIUM CHLORIDE 0.9% 10ML INJ IV PRN (09:08)
[2021-08-11] MEDS ORDERED: FLUMAZENIL 0.1 MG/ML (5 mL VIAL) IV PRN (09:08)
--- NOTE | 2021-08-11 09:10 | P.HP ---
Certification for Inpatient Patient admitted to: Inpatient With expected LOS: >2 Midnights Patient will require the following post-hospital care: None Practitioner: I am a practitioner with admitting privileges, knowledge of patient current condition, hospital course, and medical plan of care. Services: Services provided to patient in accordance with Admission requirements found in Title 42 Section 412.3 of the Code of Federal Regulations Patient History Date of Service: 08/11/21 Allergies No Known Allergies Allergy (Unverified 10/08/11 10:10) Home Medications: Folic Acid 1 mg PO DAILY #30 tablet 05/17/21 Metoprolol Tartrate [Lopressor*] 50 mg PO BID 6AM 6PM #60 tab 05/17/21 Pantoprazole [Protonix Tab*] 40 mg PO DAILY #30 tab 05/17/21 Thiamine HCl 100 mg PO DAILY #30 tablet 05/17/21 Citalopram [Celexa*] 10 mg PO DAILY #30 tablet 06/21/21 Pantoprazole Sodium [Protonix] 40 mg PO DAILY #30 tablet.dr 06/21/21 chlordiazePOXIDE HCl [Chlordiazepoxide HCl] 10 mg PO TID #70 capsule 06/21/21 chlordiazePOXIDE HCl [Chlordiazepoxide HCl] 10 mg PO TID #70 capsule 06/21/21 lisinopriL [Prinivil*] 5 mg PO BID #60 tab 06/21/21 - Past Medical/Surgical History Diabetic: No -: Alcohol abuse with history of withdrawal -: Chronic atrial fibrillation on chronic anticoagulation therapyEliquis -: Hypertension -: Depression -: Chronic pain on Suboxone -: GERD -: Anemia of chronic disease Psychosocial/ Personal History: unemployed. Lives at home with . - Family History Father -: Heart disease Mother -: Heart disease, Other (see notes) - Social History Alcohol use: Yes CD- Drugs: No Caffeine use: Yes Physical Examination - Studies Laboratory Data (last 24 hrs) 08/11/21 05:15: PT 12.6 H, INR 1.09, APTT 27.4 08/11/21 05:15: Sodium 120 L, Potassium 2.3 L*, BUN 7, Creatinine 1.15, Glucose 131 H, Total Bilirubin 1.2 H, AST 126 H, ALT 59, Alkaline Phosphatase 119 H, Lipase 385 08/11/21 05:15: WBC 14.50 H, Hgb 11.2 L, Hct 35.9 L, Plt Count 245 Assessment and Plan - Plan COVID: negative CT scan Head/Neck/Chest/Abd/Pelvis: COMPARISON: Foot Right 3 View dated 08/11/2021 TECHNIQUE: CT head without contrast. CT cervical spine without contrast with coronal and sagittal reformatted images. CT chest, abdomen and pelvis with coronal and sagittal reformatted images of the spine. All CT scans are performed using dose optimization technique as appropriate and may include automated exposure control or mA/KV adjustment according to patient size. FINDINGS: CT HEAD WITHOUT CONTRAST: No intracranial hemorrhage, hydrocephalus or extra-axial fluid collection. No acute large vascular territory infarct. The paranasal sinuses and mastoids are clear. The calvarium is intact. CT CERVICAL SPINE WITHOUT CONTRAST: No fracture or subluxation. The prevertebral soft tissues are normal in thickness.Reversal of the normal cervical lordosis. This may be related to presence of a C-collar. CT CHEST, ABDOMEN, PELVIS: Thorax: Chest Wall: No abnormal mass Lungs: No acute abnormality. Pleura: No effusions or pneumothorax. Adelia/Mediastinum: No lymphadenopathy. Aorta/Pulmonary Arteries: Unremarkable Heart: Normal size. Abdomen/Pelvis: Liver: Hepatic steatosis. Biliary: No biliary ductal dilatation. Stomach: No significant focal abnormality. Duodenum: No significant focal abnormality. Pancreas: No significant abnormality. Spleen: No significant abnormality. Adrenal: No suspicious lesions. Kidney/ureter: No hydronephrosis. Punctate stone in the right kidney. Too small to characterize and/or benign appearing renal lesions are noted. Retroperitoneum: No retroperitoneal adenopathy. Vascular: No aneurysm. Bowel: No significant focal abnormality. Peritoneum: No ascites or free air. Bladder: Grossly unremarkable. Reproductive: No adnexal masses. Bones: No acute fracture. IMPRESSION: 1. No acute intracranial abnormality. 2. No cervical spine fracture or traumatic malalignment. 3. No evidence of significant trauma to the chest, abdomen, or pelvis. Right foot xray: COMPARISON: No comparisons FINDINGS: No acute fracture. No malalignment. Advanced degenerative changes are present at the first MTP. IMPRESSION: No acute osseous abnormality involving the right foot. Physical Exam: GENERAL: Patient alert, cooperative. Patient appears anxious. Patient reports some mild visual hallucinations earlier. Mild agitation noted VITAL SIGNS: Reviewed HEENT: Head is normocephalic and atraumatic. Extraocular muscles are intact. Pupils are equal, round, and reactive to light and accommodation. Nares appeared normal. Mouth appears dry NECK: Supple. No carotid bruits. No lymphadenopathy or thyromegaly. LUNGS: Clear to auscultation. No crackles or wheezes are heard. HEART: Sinus tachycardia with rate around 120 ABDOMEN: Soft, nontender, and nondistended. Positive bowel sounds. No hepatosplenomegaly was noted. EXTREMITIES: Without any cyanosis, clubbing, rash, lesions or peripheral edema. NEUROLOGIC: Mild agitation. Some anxiety noted. Agitation controlled with medication. SKIN: Normal color, turgor and temperature. No ulcerations or rashes noted. Impression: Recurrent alcohol withdrawal with hallucinations with alcohol abuse Fall secondary to above Hyponatremia secondary to above suspect dehydration Hypertension with tachycardia Atrial fibrillation on chronic anticoagulation therapy Chronic pain on Suboxone GERD Depression Anemia chronic disease Plan: Recurrent alcohol withdrawal with hallucinations with alcohol abuse: Patient admitted to ICU for treatment. Patient has had alcohol withdrawal in the past with severe symptoms. Patient with alcohol abuse. Patient admits to drinking about three quarters to a bottle of whiskey per day. Last use of alcohol was yesterday. Patient given 2 L fluid bolus in the emergency room. Banana bag started. Patient given Valium as well. Will continue with alcohol withdrawal protocol. Will start Librium 25 mg 4 times a day orally. Continue with Ativan to maintain mild sedation. Will monitor for severe withdrawal. Patient may require multiple doses of Ativan to remain stable. Alcohol cessation addressed in detail. Continue with IV fluids at this time. Case discussed with nephrology. Will recheck BMP to ensure improvement in hyponatremia. Will start metoprolol to help with his tachycardia and blood pressure. May restart his Suboxone from home. May restart Eliquis low-dose for his chronic atrial fibrillation. Will monitor hemoglobin closely. Continue IV Protonix as well. Anticipate improvement over the next several days. Fall secondary to above: No evidence of fracture noted. We will continue to monitor closely. Will ambulate with physical therapy once his alcohol withdrawal is better controlled. Hyponatremia secondary to above suspect dehydration: Patient given 2 L fluid bolus in the emergency room. Continue IV fluids. Continue banana bag. Recheck BMP at 11:00 to ensure improvement. Nephrology consulted. Await further recommendations. Hypertension with tachycardia: Continue IV fluids. Will start metoprolol. Provide IV if required. Atrial fibrillation on chronic anticoagulation therapy: Continue metoprolol. Continue Eliquis. Chronic pain on Suboxone: Continue with Suboxone from home GERD: Continue IV Protonix for now. Depression: We will need to address this in detail once improved. Anemia chronic disease: Maintain hemoglobin. Patient reports no melena, hematemesis. Code Status: Full Code DVT prophylaxis: Continue with his Eliquis for atrial fibrillation Advanced Care Planning-30 minutes: Need to address alcohol withdrawal in detail again. Consider alcohol rehab Discharge Plan: Home Plan to discharge in: Greater than 2 days - Advance Directives Does patient have a Living Will: No Does patient have a Durable POA for Healthcare: No - Code Status/Comfort Care Code Status Assessed: Yes (Patient is full code) Time Spent Managing Pts Care (In Minutes): 55
[2021-08-11] MEDS ORDERED: FOLIC ACID 1 MG TABLET ONE (09:36)
[2021-08-11] MEDS ORDERED: THIAMINE HCL 100 MG TABLET ONE (09:36)
[2021-08-11] MEDS ORDERED: LORazepam 2 MG/ML VIAL ONE ×4 (09:36→21:18)
[2021-08-11] MEDS ORDERED: METOPROLOL TARTRATE 5 MG/5 ML INJ IV ONE (09:37)
[2021-08-11] MEDS ORDERED: PANTOPRAZOLE 40 MG INJ ONE (09:37)
[2021-08-11] MEDS: ONDANSETRON 4 MG/2 ML VIAL IV PRN (09:46)
[2021-08-11] MEDS: LORazepam 2 MG/ML VIAL IV SCH ×4 (09:48→21:25)
[2021-08-11] MEDS: PANTOPRAZOLE 40 MG INJ IVP SCH ×2 (09:56→21:00)
[2021-08-11] MEDS: FOLIC ACID 1 MG TABLET PO SCH (10:18)
[2021-08-11] MEDS: FOLIC ACID 1 MG, MULTIVITAMINS INJ 10 ML, THIAMINE HCL 100 MG in NA CHLORIDE 0.9% 1,000 ML IV SCH (10:18)
[2021-08-11] MEDS: THIAMINE HCL 100 MG TABLET PO SCH (10:18)
[2021-08-11 10:29] VITALS: BMI 28.2
[2021-08-11] MEDS ORDERED: APIXABAN 5 MG TABLET ONE (10:52)
[2021-08-11 11:25] LABS: BUN Blood Urea Nitrogen 6 mg/dL (7-18); Bicarbonate 29 mmol/L (21-32); Glucose Level 135 mg/dL (74-106); Sodium Level 124 mmol/L (136-145)
[2021-08-11 11:26] LABS: Potassium 2.3 mmol/L (3.5-5.1)
[2021-08-11] MEDS ORDERED: PROMETHAZINE INJ 25 MG/ML AMP IV PRN (11:54)
[2021-08-11] MEDS ORDERED: chlordiazePOXIDE HCl 25 MG CAP ONE ×2 (12:00→17:34)
[2021-08-11] MEDS: chlordiazePOXIDE HCl 25 MG CAP PO SCH ×2 (12:49→17:58)
[2021-08-11] MEDS: APIXABAN 2.5 MG TABLET PO SCH ×2 (12:49→21:00)
[2021-08-11] MEDS ORDERED: POTASSIUM CL SA 10 MEQ TAB PO ONE ×2 (13:00→21:58)
[2021-08-11 14:29] LABS: Urine Blood Trace-lysed (Negative); Urine Glucose Negative (Negative); Urine Protein Negative (Negative); Urine Specific Gravity 1.015 (1.005-1.030)
[2021-08-11] MEDS: LORazepam 2 MG/ML VIAL IV PRN ×2 (15:32→18:25)
[2021-08-11 17:28] LABS: BUN Blood Urea Nitrogen 5 mg/dL (7-18); Bicarbonate 28 mmol/L (21-32); Glucose Level 97 mg/dL (74-106); Sodium Level 128 mmol/L (136-145)
[2021-08-11 17:29] LABS: Potassium 2.3 mmol/L (3.5-5.1)
[2021-08-11] MEDS ORDERED: METOPROLOL TAR 25 MG TAB ONE (17:34)
[2021-08-11] MEDS: METOPROLOL TAR 25 MG TAB PO SCH (17:48)
--- NOTE | 2021-08-11 22:19 | CON ---
Date of Consultation: 08/11/2021 Reason For Consult: Severe hyponatremia. History Of Present Illness: Mr. Sotomayor is a 51-year-old male with past medical history significant fo r severe alcoholism with multiple admissions for alcohol withdrawal and delirium tremens, was brought over to the hospital because of altered mental status. EMS was called because of recurrent falls, w eakness, and confusion. Patient was diagnosed with delirium tremens and alcohol withdrawal. His las t drink was about 12 hours prior to admission. He started to have tremors and tachycardia with atria l fibrillation. He was placed on Eliquis for anticoagulation and has been started on IV fluids with a banana bag. His sodium was initially noted to be 120 and improved to 124 at the time of my examina tion. Past Medical History: Significant for history of alcohol abuse with history of withdrawal symptoms; chronic atrial fibrillation with chronic anticoagulation therapy, on Eliquis; hypertension; depressio n; chronic pain, on Suboxone; GERD; and anemia of chronic disease. Social History: He lives at home with his with history of heavy alcohol abuse for many-many yea rs. Family History: Significant for history of father with history of heart disease and mother with hist ory of heart disease as well. Review of Systems: Positive for nausea, lethargy, falls, weakness, confusion. Denies any headache. Denies any blurry v ision. Denies any abdominal pain. Denies any shortness of breath at this time. Physical Examination: Vital Signs: At this time are showing temperature of 98.7; pulse rate in the 110s to 120s range, see ms to be sinus tachy; respiratory rate of 22; blood pressure of 124/68. General: He appears in no acute distress. Mild tremors noted. Generalized tremors noted. HEENT: Shows atraumatic head. Cardiac: Auscultation of heart revealed irregular rate and rhythm with tachycardia. Pulmonary: Auscultation of the lungs were clear. Abdomen: Soft and nontender. No organomegaly was appreciated. No rebound or guarding was noted. Neurologic: He is alert, awake, and oriented x3, but generalized mild tremulousness noted. Extremities: Showed no evidence of edema. Laboratory Data: Showing sodium of 144, potassium of 2.3, chloride of 85, BUN of 6, and creatinine o f 0.74. Calcium was 8.1. Procalcitonin was 0.22. Repeat sodium has improved to 128 and potassium r emains low at 2.3. Urinalysis showed some ketonuria and some trace lysed blood. Current Medications: Include Eliquis 2.5 mg b.i.d., Librium 25 mg p.o. q.6 hours, folic acid 1 mg da andre, Haldol p.r.n., lorazepam 1 mg q.1 hour p.r.n. and q.15 minutes p.r.n. for severe agitation, Zofr an, promethazine, thiamine. He is getting IV fluids with normal saline with banana bag. Impression: 1.Hyponatremia, likely secondary to acute on chronic secondary to some component of dehydration plus or minus SIADH from underlying beer potomania. The patient's sodium seems to be responding okay wit h IV fluids at this time, and hence, we will continue IV fluids. Upon review of previous labs, his s odium was noted to be normal last month and a month before that. Hence, this seems to be more acute in nature. Hence, I will continue with IV fluids and we are not as worried about over-correction at this time. 2.Severe hypokalemia secondary to possibly from severe poor p.o. intake. Continue to replete, but g ently because of concern for over-correction. 3.Atrial fibrillation, on anticoagulation. 4.Hypertension. Lisinopril is currently on hold. We will continue to monitor. Plan: Overall, patient's sodium seems to be correcting appropriately. Continue IV fluids with potas sium replacement, especially given underlying atrial fibrillation, but also will need to monitor sodi um levels more closely. Patient has been counseled on alcohol abuse and counseled on quitting. Continue all other medications and plan of care. VV/MODL Voice ID: [id number] Report ID: [id number]
[2021-08-12] MEDS ORDERED: LORazepam 2 MG/ML VIAL ONE ×3 (02:00→07:44)
[2021-08-12] MEDS: LORazepam 2 MG/ML VIAL IV SCH ×6 (02:15→20:02)
[2021-08-12] MEDS ORDERED: APIXABAN 5 MG TABLET ONE (02:38)
[2021-08-12] MEDS ORDERED: chlordiazePOXIDE HCl 25 MG CAP ONE (02:39)
[2021-08-12] MEDS ORDERED: POTASSIUM CL SA 10 MEQ TAB PO ONE ×3 (02:40→11:57)
[2021-08-12] MEDS ORDERED: PANTOPRAZOLE 40 MG INJ ONE ×2 (02:41→07:44)
[2021-08-12] MEDS: chlordiazePOXIDE HCl 25 MG CAP PO SCH ×5 (02:43→23:52)
[2021-08-12] MEDS ORDERED: KCL 20 MEQ/100 mL IVPB 200 ML IV ONE ×3 (04:24→12:31)
[2021-08-12] MEDS: METOPROLOL TAR 25 MG TAB PO SCH ×2 (06:00→17:35)
--- NOTE | 2021-08-12 06:19 | P.PN ---
Subjective Date of Service: 08/12/21 Primary Care Provider: unknown Chief Complaint: fall Subjective: Other (Patient stable. He has been getting Ativan due to alcohol withdraw.) Physical Examination - Vital Signs Temperature: 98.5 F Blood Pressure: 128/79 Pulse: 100 Respirations: 17 Pulse Ox (%): 98 - Studies Laboratory Data (last 24 hrs) 08/11/21 05:15: WBC 14.50 H, Hgb 11.2 L, Hct 35.9 L, Plt Count 245 Assessment & Plan Discharge Plan: Home Plan to discharge in: Greater than 2 days Physician Review Additional Text: COVID: negative CT scan Head/Neck/Chest/Abd/Pelvis: COMPARISON: Foot Right 3 View dated 08/11/2021 TECHNIQUE: CT head without contrast. CT cervical spine without contrast with coronal and sagittal reformatted images. CT chest, abdomen and pelvis with coronal and sagittal reformatted images of the spine. All CT scans are performed using dose optimization technique as appropriate and may include automated exposure control or mA/KV adjustment according to patient size. FINDINGS: CT HEAD WITHOUT CONTRAST: No intracranial hemorrhage, hydrocephalus or extra-axial fluid collection. No acute large vascular territory infarct. The paranasal sinuses and mastoids are clear. The calvarium is intact. CT CERVICAL SPINE WITHOUT CONTRAST: No fracture or subluxation. The prevertebral soft tissues are normal in thickness.Reversal of the normal cervical lordosis. This may be related to presence of a C-collar. CT CHEST, ABDOMEN, PELVIS: Thorax: Chest Wall: No abnormal mass Lungs: No acute abnormality. Pleura: No effusions or pneumothorax. Adelia/Mediastinum: No lymphadenopathy. Aorta/Pulmonary Arteries: Unremarkable Heart: Normal size. Abdomen/Pelvis: Liver: Hepatic steatosis. Biliary: No biliary ductal dilatation. Stomach: No significant focal abnormality. Duodenum: No significant focal abnormality. Pancreas: No significant abnormality. Spleen: No significant abnormality. Adrenal: No suspicious lesions. Kidney/ureter: No hydronephrosis. Punctate stone in the right kidney. Too small to characterize and/or benign appearing renal lesions are noted. Retroperitoneum: No retroperitoneal adenopathy. Vascular: No aneurysm. Bowel: No significant focal abnormality. Peritoneum: No ascites or free air. Bladder: Grossly unremarkable. Reproductive: No adnexal masses. Bones: No acute fracture. IMPRESSION: 1. No acute intracranial abnormality. 2. No cervical spine fracture or traumatic malalignment. 3. No evidence of significant trauma to the chest, abdomen, or pelvis. Right foot xray: COMPARISON: No comparisons FINDINGS: No acute fracture. No malalignment. Advanced degenerative changes are present at the first MTP. IMPRESSION: No acute osseous abnormality involving the right foot. Physical Exam: GENERAL: Patient alert, cooperative. Patient appears anxious. Patient reports some mild visual hallucinations earlier. Mild agitation noted VITAL SIGNS: Reviewed HEENT: Head is normocephalic and atraumatic. Extraocular muscles are intact. Pupils are equal, round, and reactive to light and accommodation. Nares appeared normal. Mouth appears dry NECK: Supple. No carotid bruits. No lymphadenopathy or thyromegaly. LUNGS: Clear to auscultation. No crackles or wheezes are heard. HEART: Sinus tachycardia with rate around 120 ABDOMEN: Soft, nontender, and nondistended. Positive bowel sounds. No hepatosplenomegaly was noted. EXTREMITIES: Without any cyanosis, clubbing, rash, lesions or peripheral edema. NEUROLOGIC: Mild agitation. Some anxiety noted. Agitation controlled with medication. SKIN: Normal color, turgor and temperature. No ulcerations or rashes noted. Impression: Recurrent alcohol withdrawal with hallucinations with alcohol abuse Fall secondary to above Hyponatremia, hypokalemia secondary to above suspect dehydration Hypertension with tachycardia Atrial fibrillation on chronic anticoagulation therapy Chronic pain on Suboxone GERD Depression Anemia of chronic disease Possible bacteremia Plan: Recurrent alcohol withdrawal with hallucinations with alcohol abuse: Patient stable. Patient with severe alcohol withdraw. Continue with Librium and Ativan IV. H/H was low today. No melena or rectal bleeding. May need blood if Hem oglobin is below 7.5. Continue with Librium 25 mg 4 times a day orally. Continue with Ativan to maintain mild sedation. Continue with Suboxone from home. HOLD Eliquis. Will discuss with . Fall secondary to above: No evidence of fracture noted. We will continue to monitor closely. Will ambulate with physical therapy once his alcohol withdrawal is better controlled. Hyponatremia, hypokalemia secondary to above suspect dehydration: Patient was initially given 2 L fluid bolus in the emergency room. Continue IV fluids- Banana bag. Continue banana bag. Potassium still low. Continue to replace. Await recommendations from nephrology on IV fluids. Hypertension with tachycardia: Continue IV fluids. Continue metoprolol with parameters. Provide IV if required. Atrial fibrillation on chronic anticoagulation therapy: Continue metoprolol. Hold Eliquis due to drop in hemoglobin. Chronic pain on Suboxone: Continue with Suboxone from home GERD: Continue IV Protonix for now. Depression: Obtain and verify home medication Anemia chronic disease: Hemoglobin did drop from yesterday. This may be more delusional. No melena or rectal bleeding noted. We will monitor this closely. Recheck hemoglobin hematocrit. Will hold Eliquis. Consider transfusion if hemoglobin less than 7.5. Possible bacteremia: Blood culture positive suspect contaminant. Procalcitonin was initially slightly elevated. Will start vancomycin. Await culture results. Code Status: Full Code DVT prophylaxis: Hold anticoagulation therapy due to low hemoglobin Advanced Care Planning-30 minutes: Consider alcohol rehab as an outpatient but this will need to be done [id number]. Will discuss with . Time Spent Managing Pts Care (In Minutes): 55
[2021-08-12] MEDS ORDERED: METOPROLOL TAR 25 MG TAB ONE (06:33)
[2021-08-12 07:26] LABS: Absolute Lymphocytes (CBC) 0.8 K/uL (0.7-4.9); Hematocrit 27.1 % (39.6-49.0); Lymphocytes % 10.2 % (15.3-44.8)
[2021-08-12] MEDS ORDERED: FOLIC ACID 1 MG TABLET ONE (07:44)
[2021-08-12] MEDS ORDERED: THIAMINE HCL 100 MG TABLET ONE (07:44)
[2021-08-12] MEDS ORDERED: NS 0.9% VIAL 10 ML ONE (07:45)
[2021-08-12 08:01] LABS: ALT/SGPT 54 U/L (12-78); AST/SGOT 131 U/L (15-37); Alkaline Phosphatase 84 U/L (45-117); BUN Blood Urea Nitrogen 6 mg/dL (7-18); Bicarbonate 28 mmol/L (21-32); Bilirubin Total 0.7 mg/dL (0.2-1.0); Glucose Level 97 mg/dL (74-106); Magnesium 2.4 mg/dL (1.8-2.4); Protein, Total 6.2 g/dL (6.4-8.2); Sodium Level 135 mmol/L (136-145)
[2021-08-12] MEDS: THIAMINE HCL 100 MG TABLET PO SCH (08:01)
[2021-08-12] MEDS: PANTOPRAZOLE 40 MG INJ IVP SCH ×2 (08:01→20:02)
[2021-08-12] MEDS: FOLIC ACID 1 MG TABLET PO SCH (08:01)
[2021-08-12 08:03] LABS: Potassium 2.2 mmol/L (3.5-5.1)
[2021-08-12] MEDS: APIXABAN 2.5 MG TABLET PO SCH (08:06)
[2021-08-12] MEDS: FOLIC ACID 1 MG, MULTIVITAMINS INJ 10 ML, THIAMINE HCL 100 MG in NA CHLORIDE 0.9% 1,000 ML IV SCH (08:43)
[2021-08-12 10:36] LABS: Hematocrit 26.3 % (39.6-49.0)
[2021-08-12] MEDS ORDERED: VANCOMYCIN 2 GM in NA CHLORIDE 0.9% 500 ML IVPB ONE (11:00)
--- NOTE | 2021-08-12 12:40 | PN ---
Date of Progress Note: 08/12/2021 Subjective: The patient was seen and examined at bedside. He is doing okay. He continues to be sed ated, but he is getting Librium as well as Ativan. He is getting the banana bag at 125 cc an hour. His heart rate has been stable. Tremors have been stable as well. Objective: Vital Signs: Have been reviewed and are stable. General: He appears in no acute distress. Lungs: Clear to auscultation. Abdomen: Soft and nontender. Heart: Auscultation of the heart revealed mild tachycardia. Extremities: No evidence of edema. Laboratory Data: Potassium persistently low at 2.2, sodium of 135, chloride of 99, BUN of 6, and cre atinine of 0.71. Impression: 1.Hyponatremia secondary to volume depletion, improving. It is rapidly correcting, but that is okay because this is an acute hyponatremia. 2.Hypokalemia. Continue replacement with 40 of IV potassium chloride and 40 mEq of p.o. potassium c hloride. 3.Hypertension, stable. 4.Atrial fibrillation, rate controlled. 5.Alcohol withdrawal and delirium tremens. Continue Ativan and Librium with close monitoring of men wild status. Plan: The patient is overall doing okay at this time. Continue to monitor closely. Follow up on la bs and we will continue to monitor the potassium and replace as needed. VV/MODL Voice ID: [id number] Report ID: [id number]
[2021-08-12 20:49] LABS: Hematocrit 25.7 % (39.6-49.0)
[2021-08-12] MEDS: VANCOMYCIN 1.75 GM in NA CHLORIDE 0.9% 500 ML IVPB SCH (20:55)
[2021-08-13] MEDS: LORazepam 2 MG/ML VIAL IV SCH ×6 (00:57→20:02)
[2021-08-13 05:11] LABS: Hematocrit 26.8 % (39.6-49.0); Lymphocytes % 17.4 % (15.3-44.8); MPV 9.3 fL (7.6-11.3); RBC Red Blood Cell Count 3.68 M/uL (4.33-5.43)
[2021-08-13 05:23] LABS: ALT/SGPT 66 U/L (12-78); AST/SGOT 166 U/L (15-37); Albumin 2.9 g/dL (3.4-5.0); Alkaline Phosphatase 82 U/L (45-117); BUN Blood Urea Nitrogen 4 mg/dL (7-18); Bicarbonate 26 mmol/L (21-32); Bilirubin Total 0.7 mg/dL (0.2-1.0); Glucose Level 92 mg/dL (74-106); Sodium Level 141 mmol/L (136-145)
[2021-08-13 05:24] LABS: Potassium 2.3 mmol/L (3.5-5.1)
[2021-08-13] MEDS: chlordiazePOXIDE HCl 25 MG CAP PO SCH ×4 (05:34→23:08)
[2021-08-13] MEDS: METOPROLOL TAR 25 MG TAB PO SCH ×2 (05:35→18:25)
--- NOTE | 2021-08-13 05:45 | P.PN ---
Subjective Date of Service: 08/13/21 Primary Care Provider: unknown Chief Complaint: fall Subjective: Improving, Doing well (Agitation is less. Nurses report using less Ativan.) Physical Examination - Vital Signs Temperature: 97 F Blood Pressure: 148/82 Pulse: 88 Respirations: 13 Pulse Ox (%): 98 Assessment & Plan Discharge Plan: Home Plan to discharge in: 48 Hours Physician Review Additional Text: COVID: negative CT scan Head/Neck/Chest/Abd/Pelvis: COMPARISON: Foot Right 3 View dated 08/11/2021 TECHNIQUE: CT head without contrast. CT cervical spine without contrast with coronal and sagittal reformatted images. CT chest, abdomen and pelvis with coronal and sagittal reformatted images of the spine. All CT scans are performed using dose optimization technique as appropriate and may include automated exposure control or mA/KV adjustment according to patient size. FINDINGS: CT HEAD WITHOUT CONTRAST: No intracranial hemorrhage, hydrocephalus or extra-axial fluid collection. No acute large vascular territory infarct. The paranasal sinuses and mastoids are clear. The calvarium is intact. CT CERVICAL SPINE WITHOUT CONTRAST: No fracture or subluxation. The prevertebral soft tissues are normal in thickness.Reversal of the normal cervical lordosis. This may be related to presence of a C-collar. CT CHEST, ABDOMEN, PELVIS: Thorax: Chest Wall: No abnormal mass Lungs: No acute abnormality. Pleura: No effusions or pneumothorax. Adelia/Mediastinum: No lymphadenopathy. Aorta/Pulmonary Arteries: Unremarkable Heart: Normal size. Abdomen/Pelvis: Liver: Hepatic steatosis. Biliary: No biliary ductal dilatation. Stomach: No significant focal abnormality. Duodenum: No significant focal abnormality. Pancreas: No significant abnormality. Spleen: No significant abnormality. Adrenal: No suspicious lesions. Kidney/ureter: No hydronephrosis. Punctate stone in the right kidney. Too small to characterize and/or benign appearing renal lesions are noted. Retroperitoneum: No retroperitoneal adenopathy. Vascular: No aneurysm. Bowel: No significant focal abnormality. Peritoneum: No ascites or free air. Bladder: Grossly unremarkable. Reproductive: No adnexal masses. Bones: No acute fracture. IMPRESSION: 1. No acute intracranial abnormality. 2. No cervical spine fracture or traumatic malalignment. 3. No evidence of significant trauma to the chest, abdomen, or pelvis. Right foot xray: COMPARISON: No comparisons FINDINGS: No acute fracture. No malalignment. Advanced degenerative changes are present at the first MTP. IMPRESSION: No acute osseous abnormality involving the right foot. Physical Exam: GENERAL: Less agitation noted. Patient resting in bed. VITAL SIGNS: Reviewed HEENT: Neck supple NECK: Supple. No carotid bruits. No lymphadenopathy or thyromegaly. LUNGS: Clear to auscultation. No crackles or wheezes are heard. HEART: Normal sinus rhythm rate controlled ABDOMEN: Soft, nontender, and nondistended. Positive bowel sounds. No hepatosplenomegaly was noted. EXTREMITIES: Without any cyanosis, clubbing, rash, lesions or peripheral edema. NEUROLOGIC: Patient resting in bed. Less agitation noted. SKIN: Normal color, turgor and temperature. No ulcerations or rashes noted. Impression: Recurrent alcohol withdrawal with hallucinations with alcohol abuse Fall secondary to above Hyponatremia, hypokalemia secondary to above suspect dehydration Hypertension with tachycardia Atrial fibrillation on chronic anticoagulation therapy Chronic pain on Suboxone GERD Depression Anemia of chronic disease Possible bacteremia Plan: Recurrent alcohol withdrawal with hallucinations with alcohol abuse: Patient improved. Less agitation noted. Patient remains on Librium and Ativan IV. Nurses report using less Ativan. Continue to wean off IV Ativan. Hemoglobin stable. Will adjust IV fluids. Continue folic acid and thiamine orally. Continue half-normal saline with potassium. Recheck potassium later today. Anticipate continued improvement. Likely home in the next 48 hours. Will discuss with . Patient would benefit with alcohol rehab as an outpatient but due to his current financial situation this may be difficult. Fall secondary to above: No evidence of fracture noted. Will order physical therapy. Fall precaution in place. Hyponatremia, hypokalemia secondary to above suspect dehydration: We will adjust IV fluids. Continue half-normal saline with potassium. Recheck potassium later today. Continue folic acid and thiamine orally. Continue to adjust medication. Continue with nephrology recommendation. Electrolyte protocol in place. Hypertension with tachycardia: Blood pressure improved. Increase metoprolol to 25 mg 1 pill twice daily. We will continue to monitor and adjust. Atrial fibrillation on chronic anticoagulation therapy: Patient remains in normal sinus rhythm. Continue to hold Eliquis due to his anemia. Considering discontinuing Eliquis at discharge due to his risk of bleeding and fall along with his alcohol use. Chronic pain on Suboxone: Continue with Suboxone from home GERD: Continue IV Protonix Depression: Restart Celexa 10 mg daily Anemia chronic disease: Hemoglobin stable. No evidence of melena or rectal bleeding. Continue to monitor hemoglobin closely. Continue to hold Eliquis. Possible bacteremia: Blood culture positive suspect contaminant. Procalcitonin was initially slightly elevated. Continue vancomycin. Await culture results. Code Status: Full Code DVT prophylaxis: Hold anticoagulation therapy due to low hemoglobin Advanced Care Planning-30 minutes: Home at discharge. Consider alcohol rehab as an outpatient but this may be costly for the patient. But it would definitely benefit him in the long run. Continue to discuss with . Time Spent Managing Pts Care (In Minutes): 55
[2021-08-13] MEDS ORDERED: POTASSIUM CL SA 10 MEQ TAB PO ONE ×2 (07:30→09:43)
[2021-08-13] MEDS: KCL 20 MEQ/100 mL IVPB 20 MEQ/100 ML BAG IV SCH ×2 (07:30→09:30)
[2021-08-13] MEDS: NACHLORIDE IV SCH ×8 (08:30→23:01)
[2021-08-13] MEDS: KCL IV SCH ×8 (08:30→23:01)
[2021-08-13] MEDS ORDERED: FOLIC ACID 1 MG, MULTIVITAMINS INJ 10 ML, THIAMINE HCL 100 MG in NA CHLORIDE 0.9% 1,000 ML IV SCH (09:00)
[2021-08-13] MEDS: NALOXONE SL SCH (09:00)
[2021-08-13] MEDS: BUPRENORPHINE SL SCH (09:00)
[2021-08-13] MEDS: VANCOMYCIN 1.75 GM in NA CHLORIDE 0.9% 500 ML IVPB SCH ×3 (09:38→21:43)
[2021-08-13] MEDS: THIAMINE HCL 100 MG TABLET PO SCH (09:39)
[2021-08-13] MEDS: FOLIC ACID 1 MG TABLET PO SCH (09:39)
[2021-08-13] MEDS: CITALOPRAM 10 MG TABLET PO SCH (09:40)
[2021-08-13] MEDS: PANTOPRAZOLE 40 MG INJ IVP SCH ×2 (09:41→19:54)
[2021-08-13] MEDS ORDERED: KCL 20 MEQ/100 mL IVPB 200 ML IV ONE (10:00)
[2021-08-13] MEDS: SPIRONOLACTONE 25 MG TABLET PO SCH ×2 (10:17→19:53)
[2021-08-13] MEDS ORDERED: DIPHENOX/ATROP SULF 1 TAB PO ONE (19:52)
[2021-08-14] MEDS: LORazepam 2 MG/ML VIAL IV SCH (02:51)
[2021-08-14 05:15] LABS: Hematocrit 26.5 % (39.6-49.0); Lymphocytes % 17.8 % (15.3-44.8); MPV 9.2 fL (7.6-11.3); RBC Red Blood Cell Count 3.58 M/uL (4.33-5.43)
[2021-08-14] MEDS: chlordiazePOXIDE HCl 25 MG CAP PO SCH ×3 (05:37→17:11)
[2021-08-14] MEDS: METOPROLOL TAR 25 MG TAB PO SCH ×2 (05:37→17:12)
[2021-08-14 05:40] LABS: ALT/SGPT 67 U/L (12-78); AST/SGOT 119 U/L (15-37); Albumin 2.8 g/dL (3.4-5.0); Alkaline Phosphatase 86 U/L (45-117); BUN Blood Urea Nitrogen 3 mg/dL (7-18); Bicarbonate 27 mmol/L (21-32); Bilirubin Total 0.6 mg/dL (0.2-1.0); Glucose Level 98 mg/dL (74-106); Potassium 2.8 mmol/L (3.5-5.1); Protein, Total 5.9 g/dL (6.4-8.2); Sodium Level 140 mmol/L (136-145)
--- NOTE | 2021-08-14 05:45 | P.PN ---
Subjective Date of Service: 08/14/21 Primary Care Provider: unknown Chief Complaint: fall Subjective: Improving, Doing well Physical Examination - Vital Signs Temperature: 97.4 F Blood Pressure: 149/87 Pulse: 88 Respirations: 16 Pulse Ox (%): 97 Assessment & Plan Discharge Plan: Home Plan to discharge in: 48 Hours Physician Review Additional Text: COVID: negative CT scan Head/Neck/Chest/Abd/Pelvis: COMPARISON: Foot Right 3 View dated 08/11/2021 TECHNIQUE: CT head without contrast. CT cervical spine without contrast with coronal and sagittal reformatted images. CT chest, abdomen and pelvis with coronal and sagittal reformatted images of the spine. All CT scans are performed using dose optimization technique as appropriate and may include automated exposure control or mA/KV adjustment according to patient size. FINDINGS: CT HEAD WITHOUT CONTRAST: No intracranial hemorrhage, hydrocephalus or extra-axial fluid collection. No acute large vascular territory infarct. The paranasal sinuses and mastoids are clear. The calvarium is intact. CT CERVICAL SPINE WITHOUT CONTRAST: No fracture or subluxation. The prevertebral soft tissues are normal in thickness.Reversal of the normal cervical lordosis. This may be related to presence of a C-collar. CT CHEST, ABDOMEN, PELVIS: Thorax: Chest Wall: No abnormal mass Lungs: No acute abnormality. Pleura: No effusions or pneumothorax. Adelia/Mediastinum: No lymphadenopathy. Aorta/Pulmonary Arteries: Unremarkable Heart: Normal size. Abdomen/Pelvis: Liver: Hepatic steatosis. Biliary: No biliary ductal dilatation. Stomach: No significant focal abnormality. Duodenum: No significant focal abnormality. Pancreas: No significant abnormality. Spleen: No significant abnormality. Adrenal: No suspicious lesions. Kidney/ureter: No hydronephrosis. Punctate stone in the right kidney. Too small to characterize and/or benign appearing renal lesions are noted. Retroperitoneum: No retroperitoneal adenopathy. Vascular: No aneurysm. Bowel: No significant focal abnormality. Peritoneum: No ascites or free air. Bladder: Grossly unremarkable. Reproductive: No adnexal masses. Bones: No acute fracture. IMPRESSION: 1. No acute intracranial abnormality. 2. No cervical spine fracture or traumatic malalignment. 3. No evidence of significant trauma to the chest, abdomen, or pelvis. Right foot xray: COMPARISON: No comparisons FINDINGS: No acute fracture. No malalignment. Advanced degenerative changes are present at the first MTP. IMPRESSION: No acute osseous abnormality involving the right foot. Physical Exam: GENERAL: Overall improved. Less agitation noted. Patient alert and cooperative. Oriented x3. VITAL SIGNS: Reviewed HEENT: Neck supple NECK: Supple. No carotid bruits. No lymphadenopathy or thyromegaly. LUNGS: Clear to auscultation. No crackles or wheezes are heard. HEART: Normal sinus rhythm rate controlled ABDOMEN: Soft, nontender, and nondistended. Positive bowel sounds. No hepatosplenomegaly was noted. EXTREMITIES: Without any cyanosis, clubbing, rash, lesions or peripheral edema. NEUROLOGIC: Patient resting in bed. Significantly improved. SKIN: Normal color, turgor and temperature. No ulcerations or rashes noted. Impression: Recurrent alcohol withdrawal with hallucinations with alcohol abuse Fall secondary to above Hyponatremia, hypokalemia secondary to above suspect dehydration Hypertension with tachycardia Atrial fibrillation on chronic anticoagulation therapy Chronic pain on Suboxone GERD Depression Anemia of chronic disease Possible bacteremia Plan: Recurrent alcohol withdrawal with hallucinations with alcohol abuse: Patient significantly improved. Less agitation noted. Patient more alert and cooperative. Patient was able to ambulate yesterday. We will continue with Librium 25 mg 4 times a day. Discontinue scheduled Ativan. Continue with Ativan as needed for agitation. Continue folic acid and thiamine. Will transition patient to the medical floor. Physical therapy to assess ambulation. Patient remains on IV fluids. IV fluids and electrolytes adjusted by nephrology. Anticipate continued improvement over the next 48 hours. I will turn the service over to the hospitalist team tomorrow. I will go plan of care with him. We will continue to discuss plan of care with . to consider alcohol rehab as an outpatient. This may be costly but would benefit him in the long run. Hyponatremia, hypokalemia secondary to above suspect dehydration: Nephrology continues to adjust IV fluids and electrolytes. Hypertension with tachycardia: Continue metoprolol 25 mg 1 pill twice daily. Aldactone added by nephrology. We will continue to monitor and adjust. Atrial fibrillation on chronic anticoagulation therapy: Patient remains in n ormal sinus rhythm. Continue to hold Eliquis due to his anemia. Considering discontinuing Eliquis at discharge due to his risk of bleeding and falls along with his alcohol use. Chronic pain on Suboxone: Continue with Suboxone from home GERD: Continue Protonix Depression: Continue Celexa 10 mg daily Anemia chronic disease: Hemoglobin stable. No evidence of melena or rectal bleeding. Continue to monitor hemoglobin closely. Continue to hold Eliquis. Possible bacteremia: Blood culture positive suspect contaminant. Procalcitonin was initially slightly elevated. Continue vancomycin. Await culture results. If cultures negative will discontinue vancomycin Code Status: Full Code DVT prophylaxis: Hold anticoagulation therapy due anemia Advanced Care Planning-30 minutes: Home at discharge. Consider alcohol rehab as an outpatient but this may be costly for the patient. But it would definitely benefit him in the long run. Continue to discuss with . Time Spent Managing Pts Care (In Minutes): 55
[2021-08-14] MEDS: CITALOPRAM 10 MG TABLET PO SCH (09:00)
[2021-08-14] MEDS: NALOXONE SL SCH (09:00)
[2021-08-14] MEDS: VANCOMYCIN 1.75 GM in NA CHLORIDE 0.9% 500 ML IVPB SCH (09:00)
[2021-08-14] MEDS: PANTOPRAZOLE 40 MG INJ IVP SCH ×2 (09:00→20:59)
[2021-08-14] MEDS: SPIRONOLACTONE 25 MG TABLET PO SCH ×2 (09:00→21:00)
[2021-08-14] MEDS: THIAMINE HCL 100 MG TABLET PO SCH (09:00)
[2021-08-14] MEDS: BUPRENORPHINE SL SCH (09:00)
[2021-08-14] MEDS: FOLIC ACID 1 MG TABLET PO SCH (09:00)
[2021-08-14] MEDS: POTASSIUM CL SA 10 MEQ TAB PO SCH ×2 (09:51→20:59)
[2021-08-14] MEDS: LOPERAMIDE HCL 2 MG CAPSULE PO PRN ×2 (12:02→17:12)
[2021-08-14] MEDS: NACHLORIDE IV SCH ×2 (12:40)
[2021-08-14] MEDS: KCL IV SCH ×2 (12:40)
[2021-08-14] MEDS: ONDANSETRON 4 MG/2 ML VIAL IV PRN (14:42)
[2021-08-14] MEDS: LACTOBACILLUS/ACIDOPHILUS TAB PO SCH ×2 (14:43→21:00)
[2021-08-15] MEDS: chlordiazePOXIDE HCl 25 MG CAP PO SCH ×4 (00:15→17:34)
[2021-08-15] MEDS: NACHLORIDE IV SCH ×4 (00:15→17:38)
[2021-08-15] MEDS: KCL IV SCH ×4 (00:15→17:38)
[2021-08-15 03:01] LABS: Hematocrit 27.4 % (39.6-49.0); Lymphocytes % 21.8 % (15.3-44.8)
[2021-08-15 03:10] LABS: ALT/SGPT 72 U/L (12-78); AST/SGOT 105 U/L (15-37); Albumin 2.8 g/dL (3.4-5.0); Alkaline Phosphatase 87 U/L (45-117); BUN Blood Urea Nitrogen 3 mg/dL (7-18); Bicarbonate 27 mmol/L (21-32); Bilirubin Total 0.5 mg/dL (0.2-1.0); Glucose Level 100 mg/dL (74-106); Magnesium 1.7 mg/dL (1.8-2.4); Potassium 3.3 mmol/L (3.5-5.1); Protein, Total 6.1 g/dL (6.4-8.2); Sodium Level 142 mmol/L (136-145)
[2021-08-15] MEDS: METOPROLOL TAR 25 MG TAB PO SCH ×2 (05:11→17:34)
[2021-08-15] MEDS: THIAMINE HCL 100 MG TABLET PO SCH (08:10)
[2021-08-15] MEDS: SPIRONOLACTONE 25 MG TABLET PO SCH ×2 (08:10→20:25)
[2021-08-15] MEDS: LACTOBACILLUS/ACIDOPHILUS TAB PO SCH ×3 (08:10→20:22)
[2021-08-15] MEDS: CITALOPRAM 10 MG TABLET PO SCH (08:11)
[2021-08-15] MEDS: POTASSIUM CL SA 10 MEQ TAB PO SCH ×2 (08:11→20:22)
[2021-08-15] MEDS: levoFLOXacin 750 MG TAB PO SCH (08:12)
[2021-08-15] MEDS: NALOXONE SL SCH (08:12)
[2021-08-15] MEDS: FOLIC ACID 1 MG TABLET PO SCH (08:12)
[2021-08-15] MEDS: BUPRENORPHINE SL SCH (08:12)
[2021-08-15] MEDS: PANTOPRAZOLE 40MG TABLET PO SCH (08:24)
[2021-08-15] MEDS: ACETAMINOPHEN 325 MG TABLET PO PRN (14:02)
--- NOTE | 2021-08-15 22:12 | P.PN ---
Date of Service: 08/15/21 Vital Signs Temp Pulse Resp BP Pulse Ox 97.2 F 72 19 163/82 H 99 08/15/21 00:00 08/15/21 20:25 08/15/21 00:00 08/15/21 20:25 08/15/21 00:00 Medications Acetaminophen (Acetaminophen 325 Mg Tablet) 650 mg PO Q6H PRN PRN Reason: Pain scale 2-4 (Mild) Last Admin: 08/15/21 14:02 Dose: 650 mg Documented by: Chlordiazepoxide HCl (Chlordiazepoxide Hcl 25 Mg Cap) 25 mg PO Q6HR [facility] Last Admin: 08/15/21 17:34 Dose: 25 mg Documented by: Citalopram Hydrobromide (Citalopram 10 Mg Tablet) 10 mg PO DAILY [facility] Last Admin: 08/15/21 08:11 Dose: 10 mg Documented by: Flumazenil (Flumazenil 0.1 Mg/Ml (5 Ml Vial)) 0.2 mg IV 1X PRN PRN Reason: RESP <8,STUPOROUS/UNAROUSABLE Folic Acid (Folic Acid 1 Mg Tablet) 1 mg PO DAILY [facility] Last Admin: 08/15/21 08:12 Dose: 1 mg Documented by: Haloperidol Lactate (Haloperidol Lact 5 Mg/Ml Inj) 5 mg IM Q4HP PRN PRN Reason: AGITATION Home Med (Buprenorphine Hcl/Naloxone Hcl [Buprenorphine-Nalox 8-2 Mg Tab]) 2.5 tab SL DAILY [facility] Last Admin: 08/15/21 08:12 Dose: Not Given Documented by: Potassium Chloride 40 meq/ (Sodium Chloride) 1,200 mls @ 75 mls/hr IV .Q16H [facility] Last Admin: 08/15/21 17:38 Dose: 1,200 mls Documented by: Lactobacillus Acidoph/Bulgaricus (Lactobacillus/Acidophilus Tab) 1 tab PO TID [facility] Last Admin: 08/15/21 20:22 Dose: 1 tab Documented by: Levofloxacin (Levofloxacin 750 Mg Tab) 750 mg PO DAILY [facility]; Protocol Last Admin: 08/15/21 08:12 Dose: 750 mg Documented by: Loperamide HCl (Loperamide Hcl 2 Mg Capsule) 2 mg PO QID PRN PRN Reason: DIARRHEA Last Admin: 08/14/21 17:12 Dose: 2 mg Documented by: Lorazepam (Lorazepam 2 Mg/Ml Vial) 1 mg IV Q1H PRN PRN Reason: ANXIETY Last Admin: 08/11/21 18:25 Dose: 1 mg Documented by: Lorazepam (Lorazepam 2 Mg/Ml Vial) 4 mg IV Q15M PRN PRN Reason: AGITATION Metoprolol Tartrate (Metoprolol Tartrate 5 Mg/5 Ml Inj) 5 mg IV Q6H PRN PRN Reason: IF SBP > 160 OR HR > 130 Last Admin: 08/11/21 09:49 Dose: 5 mg Documented by: Metoprolol Tartrate (Metoprolol Tar 25 Mg Tab) 25 mg PO BID 6AM 6PM [facility] Last Admin: 08/15/21 17:34 Dose: 25 mg Documented by: Ondansetron HCl (Ondansetron 4 Mg/2 Ml Vial) 4 mg IV Q6HP PRN PRN Reason: NAUSEA / VOMITING Last Admin: 08/14/21 14:42 Dose: 4 mg Documented by: Pantoprazole Sodium ([facility]oprazole 40mg Tablet) [facility]; Protocol Last Admin: 08/15/21 08:24 Dose: 40 mg Documented by: Potassium Chloride (Potassium Cl Sa 10 Meq Tab) 40 meq PO BID [facility] Last Admin: 08/15/21 20:22 Dose: 40 meq Documented by: Promethazine HCl (Promethazine Inj 25 Mg/Ml Amp) 12.5 mg IV Q4H PRN PRN Reason: NAUSEA / VOMITING Last Admin: 08/11/21 12:05 Dose: 12.5 mg Documented by: Sodium Chloride (Sodium Chloride 0.9% 10ml Inj) 10 ml IV UD PRN PRN Reason: Diluant Spironolactone (Spironolactone 25 Mg Tablet) 25 mg PO BID [facility] Last Admin: 08/15/21 20:25 Dose: 25 mg Documented by: Thiamine HCl (Thiamine Hcl 100 Mg Tablet) 100 mg PO DAILY [facility] Last Admin: 08/15/21 08:10 Dose: 100 mg Documented by: Assessment/ Plan: Nephrology No dyspnea No chest pain +BM +UO No acute events overnight Vitals, medications, blood work and imaging reviewed in the chart NAD. NCAT. MMM. Neck supple. Normal respiratory effort. RRR. ND Abd. No C/C/E. No rash. AAO. Normal speech. A/P Continue the current POC and Medications other than the changes listed below. AM labs as ordered. Daily weight. Hypokalemia -Replete potassium -Continue spironolactone Hypomagnesemia -Replete magnesium prn HTN -Continue Metoprolol Moderate malnutrition -Encourage nutrition Anemia in chronic illness Iron deficiency -Consider IV iron
[2021-08-16] MEDS: chlordiazePOXIDE HCl 25 MG CAP PO SCH ×4 (00:19→17:35)
[2021-08-16 04:10] LABS: Lymphocytes % 23.5 % (15.3-44.8); MPV 8.7 fL (7.6-11.3); RBC Red Blood Cell Count 3.64 M/uL (4.33-5.43)
[2021-08-16 04:33] LABS: ALT/SGPT 72 U/L (12-78); AST/SGOT 88 U/L (15-37); Albumin 2.7 g/dL (3.4-5.0); Alkaline Phosphatase 84 U/L (45-117); BUN Blood Urea Nitrogen 3 mg/dL (7-18); Bicarbonate 29 mmol/L (21-32); Bilirubin Total 0.5 mg/dL (0.2-1.0); Glucose Level 94 mg/dL (74-106); Magnesium 1.7 mg/dL (1.8-2.4); Protein, Total 6.1 g/dL (6.4-8.2); Sodium Level 140 mmol/L (136-145)
[2021-08-16] MEDS: METOPROLOL TAR 25 MG TAB PO SCH ×2 (05:40→17:34)
[2021-08-16] MEDS: PANTOPRAZOLE 40MG TABLET PO SCH (05:41)
[2021-08-16] MEDS ORDERED: PANTOPRAZOLE 40MG TABLET PO SCH (06:30)
[2021-08-16] MEDS: POTASSIUM CL SA 10 MEQ TAB PO SCH ×3 (09:00→20:11)
[2021-08-16] MEDS: BUPRENORPHINE SL SCH (09:00)
[2021-08-16] MEDS: KCL IV SCH ×4 (09:00→10:29)
[2021-08-16] MEDS: NALOXONE SL SCH (09:00)
[2021-08-16] MEDS: NACHLORIDE IV SCH ×4 (09:00→10:29)
[2021-08-16] MEDS: LACTOBACILLUS/ACIDOPHILUS TAB PO SCH ×3 (09:06→20:10)
[2021-08-16] MEDS: THIAMINE HCL 100 MG TABLET PO SCH (09:06)
[2021-08-16] MEDS: SPIRONOLACTONE 25 MG TABLET PO SCH ×2 (09:06→20:10)
[2021-08-16] MEDS: CITALOPRAM 10 MG TABLET PO SCH (09:06)
[2021-08-16] MEDS: levoFLOXacin 750 MG TAB PO SCH (09:06)
[2021-08-16] MEDS: FOLIC ACID 1 MG TABLET PO SCH (09:07)
[2021-08-16] MEDS: LORazepam 2 MG/ML VIAL IV PRN (09:07)
[2021-08-16] MEDS: ACETAMINOPHEN 325 MG TABLET PO PRN (09:20)
[2021-08-16] MEDS ORDERED: SOD FERRIC GLUC COMPLX/SUCROSE 250 MG in NA CHLORIDE 0.9% 100 ML IV ONE (19:53)
--- NOTE | 2021-08-16 19:55 | P.PN ---
Date of Service: 08/16/21 Vital Signs Temp Pulse Resp BP Pulse Ox 98.1 F 71 16 157/99 H 95 08/16/21 04:00 08/16/21 17:34 08/16/21 04:00 08/16/21 17:34 08/16/21 04:00 Medications Acetaminophen (Acetaminophen 325 Mg Tablet) 650 mg PO Q6H PRN PRN Reason: Pain scale 2-4 (Mild) Last Admin: 08/16/21 09:20 Dose: 650 mg Documented by: Chlordiazepoxide HCl (Chlordiazepoxide Hcl 25 Mg Cap) 25 mg PO Q6HR [facility] Last Admin: 08/16/21 17:35 Dose: 25 mg Documented by: Citalopram Hydrobromide (Citalopram 10 Mg Tablet) 10 mg PO DAILY [facility] Last Admin: 08/16/21 09:06 Dose: 10 mg Documented by: Flumazenil (Flumazenil 0.1 Mg/Ml (5 Ml Vial)) 0.2 mg IV 1X PRN PRN Reason: RESP <8,STUPOROUS/UNAROUSABLE Folic Acid (Folic Acid 1 Mg Tablet) 1 mg PO DAILY [facility] Last Admin: 08/16/21 09:07 Dose: 1 mg Documented by: Haloperidol Lactate (Haloperidol Lact 5 Mg/Ml Inj) 5 mg IM Q4HP PRN PRN Reason: AGITATION Home Med (Buprenorphine Hcl/Naloxone Hcl [Buprenorphine-Nalox 8-2 Mg Tab]) 2.5 tab SL DAILY [facility] Last Admin: 08/16/21 09:00 Dose: Not Given Documented by: Potassium Chloride 40 meq/ (Sodium Chloride) 1,200 mls @ 75 mls/hr IV .Q16H [facility] Last Admin: 08/16/21 10:29 Dose: 1,200 mls Documented by: Lactobacillus Acidoph/Bulgaricus (Lactobacillus/Acidophilus Tab) 1 tab PO TID [facility] Last Admin: 08/16/21 12:52 Dose: 1 tab Documented by: Levofloxacin (Levofloxacin 750 Mg Tab) 750 mg PO DAILY [facility]; Protocol Last Admin: 08/16/21 09:06 Dose: 750 mg Documented by: Loperamide HCl (Loperamide Hcl 2 Mg Capsule) 2 mg PO QID PRN PRN Reason: DIARRHEA Last Admin: 08/14/21 17:12 Dose: 2 mg Documented by: Lorazepam (Lorazepam 2 Mg/Ml Vial) 1 mg IV Q1H PRN PRN Reason: ANXIETY Last Admin: 08/16/21 09:07 Dose: 1 mg Documented by: Lorazepam (Lorazepam 2 Mg/Ml Vial) 4 mg IV Q15M PRN PRN Reason: AGITATION Metoprolol Tartrate (Metoprolol Tartrate 5 Mg/5 Ml Inj) 5 mg IV Q6H PRN PRN Reason: IF SBP > 160 OR HR > 130 Last Admin: 08/11/21 09:49 Dose: 5 mg Documented by: Metoprolol Tartrate (Metoprolol Tar 25 Mg Tab) 25 mg PO BID 6AM 6PM [facility] Last Admin: 08/16/21 17:34 Dose: 25 mg Documented by: Ondansetron HCl (Ondansetron 4 Mg/2 Ml Vial) 4 mg IV Q6HP PRN PRN Reason: NAUSEA / VOMITING Last Admin: 08/14/21 14:42 Dose: 4 mg Documented by: Pantoprazole Sodium (Pantoprazole 40mg Tablet) [facility] Protocol Last Admin: 08/16/21 05:41 Dose: 40 mg Documented by: Potassium Chloride (Potassium Cl Sa 10 Meq Tab) 40 meq PO BID [facility] Last Admin: 08/16/21 10:30 Dose: 40 meq Documented by: Promethazine HCl (Promethazine Inj 25 Mg/Ml Amp) 12.5 mg IV Q4H PRN PRN Reason: NAUSEA / VOMITING Last Admin: 08/11/21 12:05 Dose: 12.5 mg Documented by: Sodium Chloride (Sodium Chloride 0.9% 10ml Inj) 10 ml IV UD PRN PRN Reason: Diluant Spironolactone (Spironolactone 25 Mg Tablet) 25 mg PO BID [facility] Last Admin: 08/16/21 09:06 Dose: 25 mg Documented by: Thiamine HCl (Thiamine Hcl 100 Mg Tablet) 100 mg PO DAILY [facility] Last Admin: 08/16/21 09:06 Dose: 100 mg Documented by: Assessment/ Plan: Nephrology No dyspnea No chest pain Feeling better. Good urine output. No acute events overnight Vitals, medications, blood work and imaging reviewed in the chart NAD. NCAT. MMM. Neck supple. Normal respiratory effort. RRR. ND Abd. No C/C/E. No rash. AAO. Normal speech. A/P Continue the current POC and Medications other than the changes listed below. AM labs as ordered. Daily weight. Hypokalemia -Replete potassium prn -Continue spironolactone Hypomagnesemia -Replete magnesium prn HTN -Continue Metoprolol Moderate malnutrition -Encourage nutrition Anemia in chronic illness Iron deficiency -Give IV iron
[2021-08-16 20:11] VITALS: O2SAT 96
[2021-08-16] MEDS ORDERED: SOD FERRIC GLUC COMPLX/SUCROSE 62.5 MG/5 ML VIAL IV ONE (20:54)
[2021-08-17] MEDS: NACHLORIDE IV SCH ×2 (00:04)
[2021-08-17] MEDS: chlordiazePOXIDE HCl 25 MG CAP PO SCH ×2 (00:04→05:19)
[2021-08-17] MEDS: KCL IV SCH ×2 (00:04)
[2021-08-17] MEDS: PANTOPRAZOLE 40MG TABLET PO SCH (05:19)
[2021-08-17] MEDS: METOPROLOL TAR 25 MG TAB PO SCH (05:21)
[2021-08-17] MEDS: BUPRENORPHINE SL SCH (07:55)
[2021-08-17] MEDS: NALOXONE SL SCH (07:55)
[2021-08-17 07:59] VITALS: BP 158/84; TEMP 97.7
[2021-08-17] MEDS: LACTOBACILLUS/ACIDOPHILUS TAB PO SCH (08:01)
[2021-08-17] MEDS: levoFLOXacin 750 MG TAB PO SCH (08:02)
[2021-08-17] MEDS: THIAMINE HCL 100 MG TABLET PO SCH (08:02)
[2021-08-17] MEDS: CITALOPRAM 10 MG TABLET PO SCH (08:02)
[2021-08-17] MEDS: FOLIC ACID 1 MG TABLET PO SCH (08:02)
[2021-08-17] MEDS: SPIRONOLACTONE 25 MG TABLET PO SCH (08:02)
[2021-08-17] MEDS: POTASSIUM CL SA 10 MEQ TAB PO SCH (08:02)
--- NOTE | 2021-08-17 21:23 | P.PN ---
Date of Service: 08/17/21 Vital Signs Temp Pulse Resp BP Pulse Ox 97.7 F 71 14 158/84 H 97 08/17/21 07:58 08/17/21 07:58 08/17/21 07:58 08/17/21 07:58 08/17/21 07:58 Assessment/ Plan: Nephrology No dyspnea No chest pain Feeling better. Good urine output. Appetite improving. No acute events overnight Vitals, medications, blood work and imaging reviewed in the chart NAD. NCAT. MMM. Neck supple. Normal respiratory effort. RRR. ND Abd. No C/C/E. No rash. AAO. Normal speech. A/P Continue the current POC and Medications other than the changes listed below. AM labs as ordered. Daily weight. Hypokalemia -Replete potassium prn -Continue spironolactone Hypomagnesemia -Replete magnesium prn HTN -Continue Metoprolol Moderate malnutrition -Encourage nutrition Anemia in chronic illness Iron deficiency -Give IV iron prn
[2021-08-18 13:31] LABS: C.diff Antigen/Toxin Ag neg : Tox neg (NEG : NEG)
--- NOTE | 2021-08-22 01:03 | P.PN ---
Subjective Date of Service: 08/15/21 Patient is clinically doing well. Review of Systems 10-point ROS is otherwise unremarkable Physical Examination - Vital Signs Temperature: 97.7 F Blood Pressure: 158/84 Pulse: 71 Respirations: 14 Pulse Ox (%): 97 - Physical Exam General: Alert, In no apparent distress, Oriented x3 HEENT: Atraumatic, PERRLA, EOMI Neck: Supple, JVD not distended Respiratory: Clear to auscultation bilaterally, Normal air movement Cardiovascular: Regular rate/rhythm, Normal S1 S2 Gastrointestinal: Normal bowel sounds, No tenderness Musculoskeletal: No tenderness Integumentary: No rashes Neurological: Normal speech, Normal tone, Normal affect Lymphatics: No axilla or inguinal lymphadenopathy - Studies Medications List Reviewed: Yes Assessment & Plan - Problems (Diagnosis) (1) Delirium tremens Status: Acute (2) Opiate dependence Status: Acute Qualifiers: Substance use status: in remission Qualified Code(s): F11.21 - Opioid dependence, in remission (3) Chronic alcoholism Status: Chronic - Plan Plan: 1. IV fluids 2. Banana bag 3. Continue with Librium 4. Beta-elio therapy 5. GI and DVT prophylaxis Discharge Plan: Home Plan to discharge in: Greater than 2 days - Advance Directives Does patient have a Living Will: No Does patient have a Durable POA for Healthcare: No - Code Status/Comfort Care Code Status Assessed: Yes Code Status: Full Code Critical Care: No Time Spent Managing PTS Care (In Minutes): 45
--- NOTE | 2021-08-22 01:04 | P.PN ---
Date of Service: 08/16/21 Subjective Patient continues to improve. Anticipate discharge in the morning. Review of Systems 10-point ROS is otherwise unremarkable Physical Examination - Vital Signs Reviewed - Physical Exam General: Alert, In no apparent distress, Oriented x3 Respiratory: Clear to auscultation bilaterally, Normal air movement Cardiovascular: Regular rate/rhythm, Normal S1 S2 Gastrointestinal: Normal bowel sounds, No tenderness Neurological: Normal speech, Normal tone, Normal affect Assessment & Plan - Problems (Diagnosis) (1) Delirium tremens Status: Acute (2) Opiate dependence Status: Acute Qualifiers: Substance use status: in remission Qualified Code(s): F11.21 - Opioid dependence, in remission (3) Chronic alcoholism Status: Chronic - Plan Continue with plan of care as mentioned below: 1. IV fluids 2. Banana bag 3. Continue with Librium 4. Beta-elio therapy 5. GI and DVT prophylaxis
--- NOTE | 2021-08-22 01:06 | P.DS ---
Discharge Date: 08/17/21 Primary Care Provider: unknown Disposition: ROUTINE DISCHARGE Discharge Condition: GOOD Reason for Admission: fall - Problems (1) Delirium tremens Status: Acute (2) Opiate dependence Status: Acute Qualifiers: Substance use status: in remission Qualified Code(s): F11.21 - Opioid depen dence, in remission (3) Chronic alcoholism Status: Chronic Brief History of Present Illness: Patient is a 51 year old gentleman with a history of alcohol abuse. Patient present with delirium tremens. Patient be admitted for further treatment. Hospital Course: Patient has done well during hospital stay. Patient was given Librium and this was tapered all. Patient clinically doing well. Patient has recovered and physical therapy will continue. At this time, patient is stable for discharge. Vital Signs/Physical Exam: Temp Pulse Resp BP Pulse Ox 97.7 F 71 14 158/84 H 97 08/22/21 01:03 08/22/21 01:03 08/22/21 01:03 08/22/21 01:03 08/22/21 01:03 General: Alert, In no apparent distress, Oriented x3 Laboratory Data at Discharge: WBC 4.30 K/uL (4.3-10.9) 08/16/21 03:22 Hgb 8.3 g/dL (13.6-17.9) L 08/16/21 03:22 Hct 27.0 % (39.6-49.0) L 08/16/21 03:22 Plt Count 141 K/uL (152-406) L 08/16/21 03:22 PT 12.6 SECONDS (9.5-12.5) H 08/11/21 05:15 INR 1.09 08/11/21 05:15 APTT 27.4 SECONDS (24.3-36.9) 08/11/21 05:15 Sodium 140 mmol/L (136-145) 08/16/21 03:22 Potassium 4.0 mmol/L (3.5-5.1) 08/16/21 03:22 BUN 3 mg/dL (7-18) L 08/16/21 03:22 Creatinine 0.67 mg/dL (0.55-1.3) 08/16/21 03:22 Glucose 94 mg/dL (74-106) 08/16/21 03:22 Phosphorus 2.5 mg/dL (2.5-4.9) 08/14/21 04:37 Magnesium 1.7 mg/dL (1.8-2.4) L 08/16/21 03:22 Total Bilirubin 0.5 mg/dL (0.2-1.0) 08/16/21 03:22 AST 88 U/L (15-37) H 08/16/21 03:22 ALT 72 U/L (12-78) 08/16/21 03:22 Alkaline Phosphatase 84 U/L (45-117) 08/16/21 03:22 Lipase 385 U/L (73-393) 08/11/21 05:15 Home Medications: Folic Acid 1 mg PO DAILY #30 tablet 05/17/21 Metoprolol Tartrate [Lopressor*] 50 mg PO BID 6AM 6PM #60 tab 05/17/21 Citalopram [Celexa*] 10 mg PO DAILY #30 tablet 06/21/21 Apixaban [Eliquis *] 5 mg PO BID 08/12/21 Buprenorphine HCl/Naloxone HCl [Buprenorphine-Nalox 8-2 mg Tab] 2.5 tab SL DAILY 08/12/21 Pantoprazole [Protonix Tab*] 40 mg PO DAILY 08/12/21 chlordiazePOXIDE HCl [Chlordiazepoxide HCl] 10 mg PO TID #70 capsule 08/17/21 levoFLOXacin [Levaquin] 500 mg PO DAILY #7 tab 08/17/21 New Medications: chlordiazePOXIDE HCl [Chlordiazepoxide HCl] 10 mg PO TID #70 capsule levoFLOXacin [Levaquin] 500 mg PO DAILY #7 tab Physician Discharge Instructions: OK TO DC IV AND DC HOME FOLLOW-UP WITH PRIMARY CARE PROVIDER IN 1-2 WEEKS RETURN TO THE ER if symptoms worsen CALL or TEXT DR. WEBBER AT [phone] IF ANY QUESTIONS REGARDING HOSPITAL STAY. PLEASE CALL THE FLOOR AT [phone] IF ANY MEDICATION OR NURSING QUESTIONS. Diet: Regular Activity: Fall precautions Followup: NONE,NONE [Primary Care Provider] - Time spent managing pt's care (in minutes): 35
== END 2021-08-17 10:10 | disposition home or self-care (01) | DRG 897 ==
LOC: ER 05:02 → ERHOLD 09:07 → 3RD-ICU 08-12 14:19 → 2ND 08-14 13:13
PROVIDERS: ADMIT Family Medicine; ATTEND Family Medicine
DX: F10.151 Alcohol abuse with alcohol-induced psychotic disorder with hallucinations (principal); F10.131 Alcohol abuse with withdrawal delirium; E87.1 Hypo-osmolality and hyponatremia; I48.20 Chronic atrial fibrillation, unspecified; R78.81 Bacteremia; E46 Unspecified protein-calorie malnutrition; E87.6 Hypokalemia; I10 Essential (primary) hypertension; F32.A Depression, unspecified; K21.9 Gastro-esophageal reflux disease without esophagitis; E86.0 Dehydration; R00.0 Tachycardia, unspecified; W18.30XA Fall on same level, unspecified, initial encounter; G89.29 Other chronic pain; D63.8 Anemia in other chronic diseases classified elsewhere; R19.7 Diarrhea, unspecified; E83.42 Hypomagnesemia; Z68.28 Body mass index [BMI] 28.0-28.9, adult; D50.9 Iron deficiency anemia, unspecified; F11.21 Opioid dependence, in remission; Z79.01 Long term (current) use of anticoagulants; Z20.822 Contact with and (suspected) exposure to COVID-19
CPT/HCPCS: 36415; 70450; 71260; 72125; 74177; 80048; 80053; 80076; 80202; 81003; 83690; 83735; 84100; 84132; 84145; 85014; 85018; 85025; 85610; 85730; 87040; 87077; 87186; 87205; 87324; 87449; 93005; 96365; 96366; 96375; 97110; 97116; 97161; 97530; 99285; C9113; J2405; J2550; J2916; J3360; J3370; J3411; J3480; J7030; J7040; Q9967; U0003

== ENCOUNTER 2022-07-21 13:27 | Emergency (ER) | payer SELFPAY ==
--- OUTSIDE RECORDS SUMMARY | 2022-07-21 13:35 | XMS REPORT | Continuity of Care Document ---
:[address] [facility] t Address [address] [place] [address] Care Team Providers Name Role Phone Stephanie Holt Primary Care Physician [phone] Miguel BOTELLO, Jessica Attending Clinician Doctor Unassigned, [place] Attending Clinician Unavailable Problems This patient has no known problems. Allergies, Adverse Reactions, Alerts Allergy Allergy Status Severity Reaction(s) Onset Inactive Treating Comm ents Source Name Type Date Date Clinician Mark - Propi Active Intraven ty to 6-29 ous adverse 00:00: reaction 00 to drug Social History Social Habit Start Date Stop Date Quantity Comments Source Sex Assigned At [facility] Alcohol intake 2019-05-02 2019-05-02 [facility] 00:00:00 00:00:00 [facility] Branch Smoking Status Start Date Stop Date Source Unknown if ever smoked [facility] Never smoker [facility] Medications Ordered Filled Start Stop Current Ordering Indication Dosage Frequency Signature Comments Components Source Medication Medication Date Date Medication? Clinician (SIG) Name Name TAKE ONE No (1) - CAPSULE(S) 00:00: BY MOUTH 00 TWICE A DAY NEEDED. DISSOLVE 2021-0 No TWO (2) 1/2 9-26 TABLETS 00:00: UNDER THE 00 TONGUE ONCE DAILY. citalopram 2021-0 No 1mg 10 mg 1-21 tablet 00:00: 00 Dose 2021-0 No Unknown 1-21 00:00: 00 meclizine 2021-0 No 1mg 12.5 mg 1-21 tablet 00:00: 00 citalopram 2020-0 No 1mg 10 mg 8-04 tablet 00:00: 00 metoprolol 2020-0 No 1mg tartrate 8-04 100 mg 00:00: tablet 00 citalopram 2020-0 No 1mg 10 mg 3-02 tablet 00:00: 00 Dose 2020-0 No Unknown 3-02 00:00: 00 citalopram 2019-1 No 1mg 10 mg 1-24 tablet 00:00: 00 citalopram 2019-0 No 1mg 10 mg 8-13 tablet 00:00: 00 metoprolol 2019-0 No 1mg tartrate 8-13 100 mg 00:00: tablet 00 meclizine 2019-0 No 1mg 12.5 mg 8-13 tablet 00:00: 00 citalopram 2019-0 No 1mg 10 mg 5-06 tablet 00:00: 00 Bactrim DS 2019-0 No 1mg 800 mg-160 5-06 mg tablet 00:00: 00 citalopram 2019-0 No 1mg 10 mg 2-06 tablet 00:00: 00 meclizine 2019-0 No 1mg 12.5 mg 2-06 tablet 00:00: 00 digoxin 125 2019-0 No 1(0.125 mcg (0.125 2-06 mg) mg) tablet 00:00: 00 digoxin 125 2019-0 Yes 125ug Take 1 Uni vers mcg (0.125 2-01 tablet by ity of mg) tablet 00:00: mouth [place] 00 daily. [facility] call office to discuss options for lab work digoxin 125 2020-0 Yes 125ug Take 1 Uni vers mcg (0.125 2-01 tablet by ity of mg) tablet 00:00: mouth [place] 00 daily. [facility] call office to discuss options for lab work digoxin 125 2020-0 Yes 125ug Take 1 Uni vers mcg (0.125 2-01 tablet by ity of mg) tablet 00:00: mouth [place] 00 daily. [facility] call office to discuss options for lab work citalopram 2018- No 1mg 10 mg 1-21 tablet 00:00: 00 metoprolol 2019-1 Yes [id number] 100mg Take 1 Univers tartrate 1-08 tablet by ity of 100 mg 00:00: mouth 2 [place] tablet 00 (two) Medical times Branch daily. metoprolol 2018-08 Yes [id number] 100mg Take 1 Univers tartrate 1-08 tablet by ity of 100 mg 00:00: mouth 2 [place] tablet 00 (two) Medical times Branch daily. metoprolol 2018-08 Yes [id number] 100mg Take 1 Univers tartrate 1-08 tablet by ity of 100 mg 00:00: mouth 2 [place] tablet 00 (two) Medical times Branch daily. metoprolol 2018-08 Yes [id number] 100mg Take 1 Univers tartrate 1-08 tablet by ity of 100 mg 00:00: mouth 2 [place] tablet 00 (two) Medical times Branch daily. citalopram 2018-08 No 1mg 10 mg 0-25 tablet 00:00: 00 digoxin 125 2018-08 Yes 125ug Take 1 Uni vers mcg (0.125 0-18 tablet by ity of mg) tablet 00:00: mouth [place] 00 daily. Medical Branch digoxin 125 2018-08 2020- No 125ug Take 1 Un anna mcg (0.125 0-18 02-01 tablet by ity of mg) tablet 00:00: 00:00 mouth [place] 00 :00 daily. Medical Branch diltiazem 2018-08 No 1mg ER 180 mg 0-03 capsule,24 00:00: hr,extended 00 release Tylenol 325 2018-08 No 2mg mg tablet 0-03 00:00: 00 citalopram 2018-08 No 1mg 10 mg 0-03 tablet 00:00: 00 Eliquis 5 2018-08 No 1mg mg tablet 0-03 00:00: 00 metoprolol 2018-08 No 3mg tartrate 25 0-03 mg tablet 00:00: 00 metoprolol 2018-08 No 1mg tartrate 25 0-03 mg tablet 00:00: 00 Tylenol PM 2018-08 No 3mg Extra 0-03 Strength 25 00:00: mg-500 mg 00 tablet metoprolol 2018- No 75mg Take 75 mg Univers tartrate 25 05-02 by mouth 2 i ty of mg tablet 13:55: 00:00 (two) [place] 42 :00 times Medical daily. Branch diltiazem 2018- No 180mg Take 180 Un anna 180 mg 24 05-02 mg by ity of hr tablet 13:55: 00:00 mouth [place] 42 :00 daily. Medical Branch metoprolol 2019- No 75mg Take 75 mg Univers tartrate 25 05-02 by mouth 2 i ty of mg tablet 13:55: 00:00 (two) [place] 42 :00 times Medical daily. Branch diltiazem 2018- No 180mg Take 180 Un anna 180 mg 24 05-02 mg by ity of hr tablet 13:55: 00:00 mouth [place] 42 :00 daily. Medical Branch aspirin 81 2018- No 81mg Take 81 mg Univers mg chewable 05-02 by mouth ity of tablet 13:47: 00:00 daily. [place] 32 :00 Medical Branch aspirin 81 2018- No 81mg Take 81 mg Univers mg chewable 05-02 by mouth ity of tablet 13:47: 00:00 daily. [place] 32 :00 Medical Branch acetaminoph Yes 500mg Take 500 U nivers en/diphenhy 9-13 mg by ity of dramine 13:33: mouth as [place] (TYLENOL PM 12 needed. Medic al ORAL) Branch acetaminoph Yes Take by Uni vers en (TYLENOL 9-13 mouth as ity of EXTRA 13:33: needed [place] STRENGTH 12 (headache Medica l ORAL) relief). Branch acetaminoph Yes 500mg Take 500 U nivers en/diphenhy 9-13 mg by ity of dramine 13:33: mouth as [place] (TYLENOL PM 12 needed. Medic al ORAL) Branch acetaminoph Yes Take by Uni vers en (TYLENOL 9-13 mouth as ity of EXTRA 13:33: needed [place] STRENGTH 12 (headache Medica l ORAL) relief). Branch acetaminoph Yes 500mg Take 500 U nivers en/diphenhy 9-13 mg by ity of dramine 13:33: mouth as [place] (TYLENOL PM 12 needed. Medic al ORAL) Branch acetaminoph Yes Take by Uni vers en (TYLENOL 9-13 mouth as ity of EXTRA 13:33: needed [place] STRENGTH 12 (headache Medica l ORAL) relief). Branch acetaminoph Yes 500mg Take 500 U nivers en/diphenhy 9-13 mg by ity of dramine 13:33: mouth as [place] (TYLENOL PM 12 needed. Medic al ORAL) Branch acetaminoph Yes Take by Uni vers en (TYLENOL 9-13 mouth as ity of EXTRA 13:33: needed [place] STRENGTH 12 (headache Medica l ORAL) relief). Branch acetaminoph Yes 500mg Take 500 U nivers en/diphenhy 9-13 mg by ity of dramine 13:33: mouth as [place] (TYLENOL PM 12 needed. Medic al ORAL) Branch acetaminoph Yes Take by Uni vers en (TYLENOL 9-13 mouth as ity of EXTRA 13:33: needed [place] STRENGTH 12 (headache Medica l ORAL) relief). Branch acetaminoph Yes 500mg Take 500 U nivers en/diphenhy 9-13 mg by ity of dramine 13:33: mouth as [place] (TYLENOL PM 12 needed. Medic al ORAL) Branch acetaminoph Yes Take by Uni vers en (TYLENOL 9-13 mouth as ity of EXTRA 13:33: needed [place] STRENGTH 12 (headache Medica l ORAL) relief). Branch acetaminoph Yes 500mg Take 500 U nivers en/diphenhy 9-13 mg by ity of dramine 13:33: mouth as [place] (TYLENOL PM 12 needed. Medic al ORAL) Branch acetaminoph Yes Take by Uni vers en (TYLENOL 9-13 mouth as ity of EXTRA 13:33: needed [place] STRENGTH 12 (headache Medica l ORAL) relief). Branch acetaminoph Yes 500mg Take 500 U nivers en/diphenhy 9-13 mg by ity of dramine 13:33: mouth as [place] (TYLENOL PM 12 needed. Medic al ORAL) Branch acetaminoph Yes Take by Uni vers en (TYLENOL 9-13 mouth as ity of EXTRA 13:33: needed [place] STRENGTH 12 (headache Medica l ORAL) relief). Branch apixaban Yes 5mg Take 5 mg Univ ers (ELIQUIS) 5 9-13 by mouth 2 it y of mg tablet 13:30: (two) [place] 19 times Medical daily. Branch apixaban 0 Yes 5mg Take 5 mg Univ ers [...] (two) [place] 19 times Medical daily. Branch metoprolol 2019-0 Yes [id number] 75mg Take 3 Univers tartrate 25 9-13 tablets by it y of mg tablet 00:00: mouth 2 00 (two) Medical times Branch daily. diltiazem 2019-0 Yes [id number] 180mg Take 1 Univers 180 mg 24 9-13 tablet by ity o f hr tablet 00:00: mouth [place] 00 daily. Medical Branch metoprolol 2019-0 Yes [id number] 75mg Take 3 Univers tartrate 25 9-13 tablets by it y of mg tablet 00:00: mouth 2 00 (two) Medical times Branch daily. diltiazem 2019-0 Yes [id number] 180mg Take 1 Univers 180 mg 24 9-13 tablet by ity o f hr tablet 00:00: mouth [place] 00 daily. Medical Branch metoprolol 2019-0 Yes [id number] 75mg Take 3 Univers tartrate 25 9-13 tablets by it y of mg tablet 00:00: mouth 2 00 (two) Medical times Branch daily. diltiazem 2018- Yes [id number] 180mg Take 1 Univers 180 mg 24 9-13 tablet by ity o f hr tablet 00:00: mouth [place] 00 daily. Medical Branch metoprolol Yes [id number] 75mg Take 3 Univers tartrate 25 9-13 tablets by it y of mg tablet 00:00: mouth 2 [place] 00 (two) Medical times Branch daily. diltiazem Yes [id number] 180mg Take 1 Univers 180 mg 24 9-13 tablet by ity o f hr tablet 00:00: mouth [place] 00 daily. Medical Branch No known No Univers medications [facility] Vital Signs Vital Name Observation Time Observation Value Comments Source Systolic [facility] 2019-05-02 13:33:00 144 [facility] Diastolic blood 2019-05-02 13:33:00 96 [facility]Hg[facility] Heart rate 2019-05-02 13:33:00 80 /min [facility] Respiratory rate 2019-05-02 13:19:00 20 /min [facility] Body height 2019-05-02 13:19:00 188 cm [facility] Body weight 2019-05-02 13:19:00 92.262 kg [facility] BMI 2019-05-02 13:19:00 26.12 kg/m2 [facility] Oxygen saturation in 2019-05-02 13:19:00 98 /min [facility] blood by [facility] Pulse oximetry Branch BP Systolic 2019-09-25 08:37:00 143 mm[Hg] BP Diastolic 2019-09-25 08:37:00 89 mm[Hg] Weight Measured 2019-09-25 08:37:00 216.40 pounds Height Measured 2019-09-25 08:37:00 73.00 inches Body Temperature 2019-09-25 08:37:00 97.70 degrees Heart Rate 2019-09-25 08:37:00 82.00 /min Respiratory Rate 2019-09-25 08:37:00 BP Systolic 2019-05-22 09:24:00 138 mm[Hg] BP Diastolic 2019-05-22 09:24:00 79 mm[Hg] Weight Measured 2019-05-22 09:24:00 208.40 pounds Height Measured 2019-05-22 09:24:00 73.00 inches Body Temperature 2019-05-22 09:24:00 97.40 degrees Heart Rate 2019-05-22 09:24:00 73.00 /min Respiratory Rate 2019-05-22 09:24:00 16.00 /min Procedures Procedure Date / Time Performing Clinician Source Performed EXTERNAL PROVIDER - ADC 2019-10-13 06:01:00 Doctor Unassigned, N o [facility] CARDIOLOGY [facility] AUTHORIZATION TO RELEASE 2019-05-02 05:01:00 Doctor Unassigned, No [facility] PHI TO [facility] HOSPITAL ADMISSION 2019 05:01:00 Doctor Unassigned, No Uni versity of [facility] Plan of Care Planned Activity Planned Date Details Comments Source Goal Plan of Care Note [code = 73189-8] Goal Plan of Care Note [code = 81018-8] Goal Plan of Care Note [code = 56847-3] Goal Plan of Care Note [code = 37410-6] Goal Plan of Care Note [code = 43024-8] Goal Plan of Care Note [code = 94613-5] Goal Plan of Care Note [code = 38192-2] Goal Plan of Care Note [code = 22286-4] Goal Plan of Care Note [code = 20049-8] Goal Plan of Care Note [code = 98007-4] Encounters Start End Encounter Admission Attending Care Care Encounter Source Date/Time Date/Time Type Type Clinicians Facility Department ID 2022-02-15 2022-02-15 Outpatient [id number] 00:00:00 00:00:00 Visit [id number] 2019-10-13 2019-10-13 Telephone Miguel [facility] [id number] Univers 00:00:00 00:00:00 Jessica Holland [id number] [place] [id number] Naomi Jimenez [phone] In dical nal 059 [facility] 2019-10-13 2019-10-13 Orders Doctor OMARI [id number] Univers 00:00:00 00:00:00 Only Unassigned, [place] [id number] ity of [place] [facility] [id number] Jose Cruz as [phone] [address] 2019-09-18 2019-09-18 Refill [facility] [id number] Univers 00:00:00 00:00:00 Jessica [place] [id number] [id number] [phone] [address] 2019-09-01 2019-09-01 Telephone [facility] [id number] Univers 00:00:00 00:00:00 Jessica [place] [id number] [id number] [phone] [address] 2019-05-05 2019-05-05 Telephone [facility] [id number] Univers 00:00:00 00:00:00 [facility] [id number] [id number] [phone] [facility] Specialty Care 2019-05-02 2019-05-02 Office [facility] [id number] Univers 07:49:15 09:00:59 Visit Jose Amisty [place] [id number] [id number] [phone] [address] 2019-05-02 2019-05-02 Orders Doctor SALCIDO [id number] Univers 00:00:00 00:00:00 Only Unassigned, [place] [id number] ity of [place] [facility] [id number] Jose Cruz as [phone] [address] 2019 2019 Orders Doctor OMARI [id number] Univers 00:00:00 00:00:00 Only Unassigned, [place] [id number] ity of [place] [facility] [id number] [facility] as [phone] [facility] 009 Branch Results Test Description Test Time Test Comments Results Result Comments Source DIGOXIN 2019-10-03 00:00:00 Test Item Value Reference Range Interpretation Comme nts DIGOXIN (test code = 3007) <0.4 NG/ML [id number] 00:00:00 Test Item Value Reference Range Interpretation Comments DIGOXIN (test code = 3007) <0.4 NG/ML
[2022-07-21] MEDS ORDERED: IBUPROFEN 400 MG TAB ONE (14:29)
--- NOTE | 2022-07-21 16:25 | RAD REPORT ---
EXAM DESCRIPTION: RAD - Forearm Left - 07/21/2022 4:02 pm CLINICAL HISTORY: PAIN COMPARISON: No comparisons FINDINGS: No fracture or dislocation is seen.
--- NOTE | 2022-07-21 16:28 | ER ---
Nurse's Notes [facility] Name: Tomás Sotomayor Age: 52 yrs Sex: Male : 1970 Arrival Date: 07/21/2022 Time: 13:29 Bed DIS2 Private MD: Diagnosis: Contusion of left wrist Presentation: 07/21 13:57 Chief complaint: Patient states: He was starting the edger and the cord popped back and kb3 struck him in the left wrist. Coronavirus screen: Vaccine status: Patient reports receiving the 2nd dose of the covid vaccine. Client denies travel out of the [place] in the last 14 days. Ebola Screen: Patient negative for fever greater than or equal to 101.5 degrees Fahrenheit, and additional compatible Ebola Virus Disease symptoms Patient denies exposure to infectious person. Patient denies travel to an Ebola-affected area in the 21 days before illness onset. Initial Sepsis Screen: Does the patient meet any 2 criteria? No. Patient's initial sepsis screen is negative. Does the patient have a suspected source of infection? No. Patient's initial sepsis screen is negative. Risk Assessment: Do you want to hurt yourself or someone else? Patient reports no desire to harm self or others. Onset of symptoms was July 21, 2022 at 13:00. 13:57 Method Of Arrival: Ambulatory 3 13:57 Acuity: STACIE 4 kb3 Triage Assessment: 13:59 General: Appears in no apparent distress. Behavior is calm, cooperative. Pain: kb3 Complains of pain in left wrist Pain does not radiate. Pain currently is 7 out of 10 on a pain scale. Historical: - Allergies: 13:59 No Known Allergies; kb3 - Home Meds: 13:59 bupren/Nalonone 8mg/2mg SL twice a day [Active]; kb3 - PMHx: 13:59 AFIB; Hypertension; Chronic back pain; kb3 - PSHx: 13:59 None; kb3 - Immunization history:: Adult Immunizations up to date, Client reports receiving the 2nd dose of the Covid vaccine, Last tetanus immunization: unknown. - Social history:: Smoking status: Patient denies any tobacco usage or history of. Screenin:31 Abuse screen: Denies threats or abuse. Denies injuries from another. Nutritional ss screening: No deficits noted. Tuberculosis screening: Never had TB. Fall Risk None identified. Assessment: 16:31 General: Appears in no apparent distress. comfortable, Behavior is calm, cooperative, ss Denies feeling ill. Pain: Complains of pain in left wrist Pain currently is 7 out of 10 on a pain scale. Quality of pain is described as tender, Pain began suddenly, Is continuous. Neuro: Level of Consciousness is awake, alert, obeys commands, Oriented to person, place, time, situation. Cardiovascular: Pulses are palpable in right radial artery and left radial artery. Respiratory: Airway is patent Respiratory effort is even, unlabored, Respiratory pattern is regular, symmetrical. Derm: Skin is intact, is healthy with good turgor, Skin is dry, Skin is pink, warm \T\ dry. normal. Musculoskeletal: Range of motion: intact in all extremities. Vital Signs: 13:57 BP 150 / 95; Pulse 73; Resp 20; Temp 98.0; Pulse Ox 100% ; Weight 113.4 kg; Height 6 kb3 ft. 1 in. (185.42 cm); Pain 7/10; 13:57 Body Mass Index 32.98 (113.40 kg, 185.42 cm) kb3 ED Course: 13:29 Patient arrived in ED. mr 13:35 April Guerrero, [facility]. kb 13:35 Maynor Jones MD is Attending Physician. kb 13:59 Triage completed. kb3 13:59 Arm band placed on right wrist. kb3 16:04 Forearm Left XRAY In Process Unspecified. EDMS 16:31 Mallika Shell, RN is Primary Nurse. ss 16:31 Patient has correct armband on for positive identification. ss 16:32 No provider procedures requiring assistance completed. Patient did not have IV access ss during this emergency room visit. Administered Medications: 14:32 Drug: Ibuprofen 800 mg Route: PO; ss 16:33 Follow up: Response: No adverse reaction ss Medication: 16:31 VIS not applicable for this client. ss Outcome: 16:27 Discharge ordered by . kb 16:32 Discharged to home ambulatory. ss 16:32 Condition: good 16:32 Discharge instructions given to patient, Instructed on discharge instructions, follow up and referral plans. medication usage, Demonstrated understanding of instructions, follow-up care, medications. 16:33 Patient left the ED. ss Signatures: Dispatcher [employer] April Hanson, DISTRICT BRANCH MANAGER-C DISTRICT BRANCH MANAGER-Ckb Zhen, Milana mr Mallika Shell, RN RN ss Coleen Becerril RN RN kb3 Corrections: (The following items were deleted from the chart) 13:59 13:59 PMHx: chroic back pain; kb3 kb3
--- NOTE | 2022-07-21 16:28 | EDPHYS ---
Physician Documentation [facility] Name: Tomás Sotomayor Age: 52 yrs Sex: Male : 1970 Arrival Date: 07/21/2022 Time: 13:29 Bed DIS2 Private MD: ED Physician Maynor Jones HPI: 07/21 17:46 This 52 yrs old Male presents to ER via Ambulatory with complaints of Wrist Injury. kb 17:46 The patient or guardian reports pain, swelling. The complaints affect the left wrist kb diffusely. Context: resulted from a direct blow. Onset: The symptoms/episode began/occurred just prior to arrival. Modifying factors: The symptoms are alleviated by nothing, the symptoms are aggravated by nothing. Associated signs and symptoms: The patient has no apparent associated signs or symptoms. The patient has not experienced similar symptoms in the past. The patient has not recently seen a physician. Pt reports he was starting the edger and the pull cord broke causing it to hit him in the left wrist. Reports he heard a pop and it started swelling. Historical: - Allergies: 13:59 No Known Allergies; kb3 - Home Meds: 13:59 bupren/Nalonone 8mg/2mg SL twice a day [Active]; kb3 - PMHx: 13:59 AFIB; Hypertension; Chronic back pain; kb3 - PSHx: 13:59 None; kb3 - Immunization history:: Adult Immunizations up to date, Client reports receiving the 2nd dose of the Covid vaccine, Last tetanus immunization: unknown. - Social history:: Smoking status: Patient denies any tobacco usage or history of. ROS: 17:44 Constitutional: Negative for fever, chills, and weight loss. kb 17:44 MS/extremity: Positive for pain, swelling, of the left wrist. 17:44 All other systems are negative. Exam: 17:44 Constitutional: This is a well developed, well nourished patient who is awake, alert, kb and in no acute distress. Head/Face: Normocephalic, atraumatic. ENT: Moist Mucous membranes Cardiovascular: Regular rate and rhythm with a normal S1 and S2. No gallops, murmurs, or rubs. No pulse deficits. Respiratory: Respirations even and unlabored. No increased work of breathing. Talking in full sentences Skin: Warm, dry with normal turgor. Normal color. Neuro: Awake and alert, GCS 15, oriented to person, place, time, and situation. Moves all extremities. Normal gait. Psych: Awake, alert, with orientation to person, place and time. Behavior, mood, and affect are within normal limits. 17:44 Musculoskeletal/extremity: Extremities: grossly normal except: noted in the left wrist: pain, swelling, ROM: intact in all extremities, Circulation is intact in all extremities. Sensation intact. Vital Signs: 13:57 BP 150 / 95; Pulse 73; Resp 20; Temp 98.0; Pulse Ox 100% ; Weight 113.4 kg; Height 6 kb3 ft. 1 in. (185.42 cm); Pain 7/10; 13:57 Body Mass Index 32.98 (113.40 kg, 185.42 cm) kb3 MDM: 13:52 Patient medically screened. kb 17:44 Data reviewed: vital signs, nurses notes. Data interpreted: Pulse oximetry: on room air kb is 100 %. Interpretation: normal. Counseling: I had a detailed discussion with the patient and/or guardian regarding: the historical points, exam findings, and any diagnostic results supporting the discharge/admit diagnosis, radiology results, the need for outpatient follow up, a orthopedic surgeon, to return to the emergency department if symptoms worsen or persist or if there are any questions or concerns that arise at home. 07/21 13:53 Order name: Forearm Left XRAY; Complete Time: 16:27 kb 07/21 13:53 Order name: Ice pack; Complete Time: 14:32 kb Administered Medications: 14:32 Drug: Ibuprofen 800 mg Route: PO; ss 16:33 Follow up: Response: No adverse reaction ss Disposition: 18:55 Co-signature as Attending Physician, Maynor Jones MD. rn Disposition Summary: 07/21/22 16:27 Discharge Ordered Location: Home kb Condition: Stable kb Diagnosis - Contusion of left wrist kb Followup: kb - With: Emergency Department - When: As needed - Reason: Worsening of condition Followup: kb - With: Private Physician - When: 2 - 3 days - Reason: Recheck today's complaints, Continuance of care, Re-evaluation by your physician Discharge Instructions: - Discharge Summary Sheet kb - Contusion, [id number] kb Forms: - Medication Reconciliation Form kb - Thank You Letter kb - Antibiotic Education kb - Prescription Opioid Use kb Prescriptions: - Ibuprofen 800 mg Oral Tablet - take 1 tablet by ORAL route every 8 hours As needed take with food; 30 tablet; kb Refills: 0, Product Selection Permitted Signatures: Dispatcher [employer] EDApril Marcano, NURSES SUPERVISOR-C NURSES SUPERVISOR-Ckb Maynor Jones MD MD rn Smirch, Shelby, RN RN ss Coleen Becerril RN RN kb3 Corrections: (The following items were deleted from the chart) 13:59 13:59 PMHx: chroic back pain; kb3 kb3
[2022-07-21 16:37] VITALS: BP 150/95; TEMP 98; O2SAT 100
== END 2022-07-21 16:33 | disposition home or self-care (01) ==
LOC: ER 13:27
DX: S60.212A Contusion of left wrist, initial encounter (principal)
CPT/HCPCS: 99283